=== PATIENT | female | born 1940 | race Caucasian/White ===

== ENCOUNTER 2017-03-24 15:33 | Observation (INO) | payer MEDICARE ==
[~2017-03-24] VITALS: Ht 162.6 cm; Wt 86.4 kg
[~2017-03-24 15:33] MED LIST: AMBIEN 5MG TAB5 MG PO; ASPIRIN 325MG325 MG PO; CEPHALEXIN500 MG PO; CLOPIDOGREL75 MG PO; CYCLOBENZAPRINE10 M1 PO; CYCLOBENZAPRINE10 MG PO; CYMBALTA60 MG PO; FUROSEMIDE40 MG PO; GABAPENTIN300 MG PO; INSULIN GL100 UNITS/ SC; K-DUR 2020 MEQ PO; LASIX20 MG PO; LASIX40 MG PO; LISINOPRIL 20MG20 MG PO; LISINOPRIL40 MG PO; LOMOTIL 2.5MG.2.5 MG PO; LOVAZA1 GM PO; MORPHINE SULFAT15 M3 PO; MORPHINE SULFAT30 M3 PO; NORCO 325 MG-51 TAB PO; Novolog100 U/ML SC; PLAVIX75 MG PO; PROTONIX 40MG T40 MG PO; SIMVASTATIN20 MG PO; VALIUM 10MG TAB10 MG PO; VICODIN 5/500 T1 TAB PO; VIT B PO; VIT D3 PO; VITAMIN D31000 IU PO
[2017-03-24 15:34] VITALS: BP 89/56
[2017-03-24 15:54] LABS: HEMOGLOBIN 10.7 g/dL (12.2-16.2); LYMPH # 3.2 K/mm3 (0.7-4.5); LYMPH % 14.4 % (10-50.0)
[2017-03-24 16:30] LABS: NEUTROPHILS 87 % (42-76)
--- NOTE | 2017-03-24 16:44 | Emergency Room Report ---
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 PT REPORTS CHRONIC BACK PAIN BUT STATES PAIN IS DIFFERENT THAN NORMAL. 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 N Clinical Suspician of Infection? N Mental Status: 1 - Regular (Normal Baseline) Sepsis Risk:Possible Sepsis Risk Have you (or family members/close friends) recently traveled outside the [place]? N If Yes, where/when: Have you had exposure to infectious disease within the past month? N TB? Other? Specify: 76 years old white female who presented with complicated past medical history for the past 5 days. Chief complaint is worsening of her lower back pain. She started developing vomiting for the past 5 days. 4-5 times a day. no diarrhea, no hematemesis no coffee-ground emesis no bleeding per rectum no melanotic stool. History she is a smoker who continues to smoke and she is experiencing productive cough of yellow/brown sputum. She denies respiratory distress. Source patient, RN notes reviewed, family Exam Limitations clinical condition (unable to lay flat because of ) ALLERGIES Coded Allergies: venom-honey bee (bee venom (honey bee)) (Severe, S-DIFF. BREATHING 10/18/15) ASPARTAME (FOOD) (From ASPARTAME (FOOD/DRUG)) (Intermediate, I-HIVES 10/18/15) aspartame (From ASPARTAME (FOOD/DRUG)) (Intermediate, I-HIVES 10/18/15) adhesive tape (10/18/15) Home Medications Reported Medications Simvastatin 1 TAB PO DAILY Pantoprazole Sodium (Protonix 40MG TAB) 1 TAB PO DAILY ASPIRIN (Aspirin 325MG) 1 TAB PO DAILY Diazepam (Valium 10MG) 10 MG PO TIDP Gabapentin (Gabapentin 300MG) 300 MG PO TID HYDROCODONE/ACETAMINOPHEN ([place] 5-325 Tablet) 1 TAB PO Q4-6HP PRN PAIN INSULIN GLARGINE (Lantus 3ML Solostar Pen) 15 UNITS SC DAILY INSULIN ASPART (Novolog) 15 UNITS SC AC Zolpidem Tartrate (Ambien 5MG) 5 MG PO QHS DULOXETINE HCL (Cymbalta 60MG) 60 MG PO QHS Lisinopril (Lisinopril 40MG) 40 MG PO DAILY Furosemide (Furosemide 40MG) 40 MG PO DAILY CLOPIDOGREL BISULFATE (Clopidogrel 75MG) 75 MG PO DAILY History Medical History General CAD? No Angina: Yes [place]: No Hypertension? Yes Hyperlipidemia? Yes CHF? No DVT? No PE? No COPD? No Asthma? No Anemia? No GERD? No Gastric ulcers? No GI Bleed? No Hernia? No Thyroid Problems? No Hypothyroidism? No CVA? Yes Seizures? 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 Yes Renal Insuffiency? No End Stage Renal Disease? No UTI? No Stones? No BPH? No GB Disease: No Nephritic Syndrome? No Asplenia? No Hepatitis? No Sickle Cell Disease? No Arthritis? Yes Migraines? Yes Cataracts? No Glaucoma? No MRSA? No HIV? No TB? No Anxiety? Yes Depression? Yes Cancer? Yes Site: COLON CANCER More? Yes Additional hx: Diabetic neuropathy BELLS PALSY Immunization Hx DT/Tetanus UNKNOWN Flu 2014-FSN Pneumonia Received In Past Surgical Hx Previous Surgery?Y L KNEE BACK SURGERY Colon Procedures HYSTERECTOMY Family History Family Hx Diabetes Yes CAD No Hypertension Yes Hyperlipidemia Yes Cancer Yes TB No Social History Smoking Hx Smoker: Current Every Day Smoker Tobacco: Yes Type Cigarettes Packs/day < 1 Pack Alcohol Alcohol: No Review of Systems All Other Systems Reviewed and Negative Constitutional no symptoms reported Eyes no symptoms reported ENT no symptoms reported. Respiratory see HPI, cough Cardiovascular no symptoms reported Gastrointestinal see HPI, vomiting Genitourinary no symptoms reported. Musculoskeletal back pain Skin no symptoms reported Psychiatric/Neurological no symptoms reported Physical Exam Vital Signs Vital Signs Date Time Temp Pulse Resp B/P Pulse O2 O2 Flow FiO2 Ox Delivery Rate 03/24 1900 80 20 145/66 100 03/24 1823 90 20 116/62 97 03/24 1712 96 20 115/62 98 03/24 1647 22 03/24 1622 80 22 101/47 95 09/25 1534 98.5 93 22 89/56 96 Uncooperative for exam because of her lower back. She was unable to lay flat. There was no acute findings and essentially examination. (Elicia CLARKE,[facility]) - WBC >12,000 or <4,000 or 10% bands? 2 or more SIRS Criteria Met? B/P:101/47 MAP:67 Creatinine >2.0? UA output<0.5ml/kg/hr for 2 hrs? Platelet count >100,000? Lactate >2.0mmol/1? INR >1.2 or PTT > than 60 sec? Evidence of Organ Dysfunction? Provider documented clinical suspician of infection? N Sepsis Criteria Count: 2 Sepsis Risk: Possible Sepsis Risk General Appearance normal appearance, WD/WN Eye Exam - bilateral eye normal exam, bilateral eye PERRL, bilateral eye EOMI Ear, Nose, Throat hearing grossly normal, normal ENT inspection Neck normal inspection, non-tender, supple, full range of motion Respiratory Status Yes: trachea midline, chest symmetrical, non tender chest. No: respiratory distress. Lung Sounds bilateral: normal breath sounds, lungs clear. 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 No Results/Orders Laboratory Tests 03/24/17 1540: Sodium 135 L, Potassium 3.6, Chloride 93 L, Carbon Dioxide 26, BUN 38 H, Creatinine 2.6 H, Estimated Creat Clear 20 L, Estimated GFR (MDRD) 18 *L, Glucose 153 H, Calcium 9.1, Total Bilirubin 0.8, AST 15, ALT 15, Alkaline Phosphatase 92, Total Protein 7.6, Albumin 3.3 L, Globulin 4.3 H, Albumin/ Globulin Ratio 0.8 L, WBC 22.0 *H, RBC 3.75 L, Hgb 10.7 L, Hct 32.4 L, MCV 86.4, RDW 15.3, Plt Count 584 H, MPV 7.8, Gran % 79.5, Gran # 17.5 H, Total Counted 100, Lymphocytes % 14.4, Monocytes % 5.0, Eosinophils % 0.7, Basophils % 0.4, Neutrophils 87 H, Band Neutrophils 1, Lymphocytes (Manual) 9 L, Lymphocytes # 3.2, Monocytes (Manual) 3, Monocytes # 1.1 H, Eosinophils # 0.2, Basophils # 0.1, Platelet Estimate MOD INCREASE, PUBS MCHC 33.1, MCH 28.6 Current Medication Orders Sig/Brandy Start time Last Medication Dose Route Stop Time Status Admin Metronidazole 100 ML ONCE ONE 03/24 1915 AC IV 03/24 2014 Ceftriaxone Sodium 0 .STK-MED ONE 03/24 1653 DC IV Sodium Chloride 50 ML .STK-MED ONE 03/24 1653 DC IV Ondansetron HCl 0 .STK-MED ONE 03/24 1649 DC .ROUTE Morphine Sulfate 0 .STK-MED ONE 03/24 1646 DC .ROUTE Ceftriaxone Sodium 1 GM ONCE ONE 03/24 1645 DC 03/24 Sodium Chloride 50 ML IV 03/24 1714 1710 Morphine Sulfate 4 MG ONCE ONE 03/24 1645 DC 03/24 IV 03/24 1646 1647 Ondansetron HCl 4 MG ONCE ONE 03/24 1645 DC 03/24 IV 03/24 1646 1650 Sodium Chloride 10 ML PRN PRN 03/24 1600 AC IV 03/25 1546 Sodium Chloride 1,000 ML .Q1H1M 03/24 1600 DC 03/24 IV 03/24 1700 1553 Sodium Chloride 10 ML PRN PRN 03/24 1600 AC IV 03/25 1547 Sodium Chloride 1,000 ML .STK-MED ONE 03/24 1536 DC IV Orders Procedure Date/time Status DIET-NOTHING BY MOUTH 03/24 D Active DIARRHEA PANEL, PCR 03/24 1915 Active CHEST(2 VIEWS-NOT PORTABLE) 03/24 1640 Active CULTURE, BLOOD 03/24 1640 Active LACTIC ACID 03/[address] ABD/PELVIS REQ 03/24 1547 Complete IV SALINE LOCK 03/24 1547 Active URINALYSIS/COMPLETE 03/24 1547 Active CBC WITH AUTO DIFF 03/24 154 Complete CHEM 12 PROFILE 03/24 1547 Complete DIFFERENTIAL-WBC 03/24 1540 Complete Departure Departure Time of Disposition 1916 Disposition Still a Patient Clinical Impression Primary Impression: Acute renal failure Secondary Impressions: Chronic low back pain, Enteritis Condition STABLE Referrals Anand Alvarez MD (Family) Additional Instructions After reviewing the labs and CT scan report to Dr. Gracia was covering for Dr. ALVAREZ. He agreed to admit for IV fluid and antibiotics. THE PATIENT was admitted in stable condition. Discharge Counseling Counseled pt/family regarding diagnosis, test results, follow up needs ED Critical Care Critical Care No at 1920
--- NOTE | 2017-03-24 18:14 | RADIOLOGY REPORT PS360 ---
CT ABD PELVIS W/O CONTRAST HISTORY: NAUSEA, VOMITING, INCREASED BACK PAIN . Has history: Tumor removed roughly 2009. Patient Age: 76 years: Female Ordering Physician: Paloma Rubi MD TECHNIQUE: Helical CT scanning performed the abdomen and pelvis. Sagittal and coronal reconstruction CT workstation COMPARISON :CT abdomen pelvis 05/25/2015 FINDINGS : Abnormal enlarged lymph nodes are seen overlying the right lateral chest. & lateral margin right breast towards axilla. Palpation of the lateral right chest wall & axilla required to correlate. Largest node measuring up to 3.6 cm. With adjacent node 2 cm size.. Suspect right breast pathology vs lymphoma. These abnormal and warrant further investigation. .. Recommend CT chest with contrast to further evaluate. Also suggest Bilateral Mammography & right breast with axillary Ultrasound recommended as I see no prior mammograms at this facility Lung bases. No active disease within the lung bases otherwise evident. Elevation left hemidiaphragm Abdomen/pelvis. Lack of oral and IV contrast decreases sensitivity. Liver. No focal lesions. Spleen appears overall normal 115-mm height. . Gallbladder is nondistended with no calcified gallstones but would suspect sludge and nonopacified debris. Kidneys. No tract obstruction. Renal vascular calcifications medial right and left kidney. Diffuse calcification of lower abdominal aorta. No aneurysm. Partial colonic resection with anastomosis of large bowel at right abdomen, & and towards right lower quadrant.. Large air-fluid level here with this is somewhat distended loop of large bowel at. Site of anastomosis.. Also Liquid stool throughout the right colon. Features may reflect developing diarrhea,/ enteritis. Small bowel appears normal in caliber with upper normal wall thickness in some areas distally but no significant dilatation.. Scattered small air-fluid levels. No free fluid. No free ai at the abdomen or pelvis. Moderate solid stool distally at large bowel, with moderate stool throughout the colon. Osseous. No focal lesions. No metastatic disease. Levoscoliosis of L-spine. Prominent Degenerative changes throughout the spine similar to 2015. . IMPRESSION. 1. Abnormal enlarged lymph nodes incidentally noted overlying right chest wall on the initial images. Recommend follow-up CT chest preferably with contrast. Also bilateral mammogram and right breast ultrasound to further evaluate 2. Liquid stool is seen throughout the right colon . Particularly prominent air-fluid level is seen at the dilated area of large bowel anastomosis right abdomen/right lower quadrant. It may reflect developing enteritis/diarrhea 3. Moderately distended gallbladder.. No calcified stones but somewhat suspect of noncalcified stones a versus significant sludge & debris. Consider including gallbladder ultrasound when patient returns as well
[2017-03-24 20:20] VITALS: BP 126/67
--- NOTE | 2017-03-24 20:25 | RADIOLOGY REPORT PS360 ---
CHEST(2 VIEWS-NOT PORTABLE) HISTORY: cough and body cahes Patient Age: 76 years: Female Ordering Physician: Paloma Rubi MD TECHNIQUE: PA lateral chest in wheelchair COMPARISON :PA and lateral chest from April 01, 2013. Also AP chest September 2015 and rib series October 2015 FINDINGS Nothing definitely acute. Minor chronic change at the lungs s.. Lungs well expanded and clear . Heart rand and mediastinal structures appear satisfactory. No focal pneumonia evident. . Prominent arthritic changes are seen in both shoulder with narrowing subacromial space bilateral likely reflecting underlying rotator cuff tears.. Slight progression of degenerative disc narrowing and changes at mid T-spine since 2012. No compression fracture. Report IMPRESSION: No acute cardiopulmonary findings. Heart and & lungs appear stable since prior studies Slight progressive degenerative disc changes mid T-spine, since 2012 lateral chest
[2017-03-25 04:35] VITALS: BP 114/53
--- NOTE | 2017-03-25 07:08 | HISTORY AND PHYSICAL REPORT ---
Demographics: Admit date: 03/24/17 Chief complaint: Vomiting PRIMARY DIAGNOSIS: RENAL FAILURE Allergies: Coded Allergies: venom-honey bee (bee venom (honey bee)) (Severe, S-DIFF. BREATHING 03/24/17) ASPARTAME (FOOD) (From ASPARTAME (FOOD/DRUG)) (Intermediate, I-HIVES 03/24/17) aspartame (From ASPARTAME (FOOD/DRUG)) (Intermediate, I-HIVES 03/24/17) adhesive tape (03/24/17) History of present illness: History of present illness: 76-year-old female presented to the emergency department last night with 4 days of vomiting. Patient states vomiting would occur every time she attempted to eat or drink. She estimates the last 4 days the most she ever tried it one time was a cookie otherwise she just drink water. Workup in the emergency department revealed elevated white blood cell count, elevated BUN, elevated creatinine above baseline. Patient was admitted for IV fluids. Overnight patient has been able to drink a small glass of water without vomiting. Past medical history: Family HX Family Hx Insignificant No Diabetes Yes CAD No Hypertension Yes Hyperlipidemia Yes Cancer Yes TB No Immunization HX DT/Tetanus > 10 Years Ago Flu 2014-16FSN Pneumonia Received In Past TB Test in last year No General CAD? No Angina: Yes [place]: No Hypertension? Yes Hyperlipidemia? Yes CHF? No DVT? No PE? No COPD? No Asthma? No Anemia? No GERD? No Gastric ulcers? No GI Bleed? No Hernia? No Thyroid Problems? No Hypothyroidism? No CVA? Yes Seizures? 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 Yes Renal Insuffiency? No UTI? No Stones? No BPH? No GB Disease: No Nephritic Syndrome? No Asplenia? No Hepatitis? No Sickle Cell Disease? No Arthritis? Yes Migraines? Yes Cataracts? No Glaucoma? No MRSA? No HIV? No TB? No Anxiety? Yes Depression? Yes Cancer? Yes Site: COLON CANCER More? Yes Additional hx: Diabetic neuropathy BELLS PALSY Past Surgical HX Previous Surgery?Y L KNEE BACK SURGERY Colon Procedures HYSTERECTOMY Current home meds: Reported Medications Simvastatin 1 TAB PO DAILY Pantoprazole Sodium (Protonix 40MG TAB) 1 TAB PO DAILY ASPIRIN (Aspirin 325MG) 1 TAB PO DAILY Diazepam (Valium 10MG) 10 MG PO TIDP Gabapentin (Gabapentin 300MG) 300 MG PO TID HYDROCODONE/ACETAMINOPHEN ([place] 5-325 Tablet) 1 TAB PO Q4-6HP PRN PAIN INSULIN GLARGINE (Lantus 3ML Solostar Pen) 15 UNITS SC DAILY INSULIN ASPART (Novolog) 15 UNITS SC AC Zolpidem Tartrate (Ambien 5MG) 5 MG PO QHS DULOXETINE HCL (Cymbalta 60MG) 60 MG PO QHS Lisinopril (Lisinopril 40MG) 40 MG PO DAILY Furosemide (Furosemide 40MG) 40 MG PO DAILY CLOPIDOGREL BISULFATE (Clopidogrel 75MG) 75 MG PO DAILY Social Hx: Smoking HX Tobacco Yes Type Cigarettes Packs/day < 1 PACK Are you/the child exposed to second-hand smoke: No Alcohol Alcohol: No Hx of Drug Use Drug Use? No Patien't marital status is Patient's support system is good Review of systems: Constitutional No: chills, diaphoresis, malaise. Respiratory no symptoms reported. Cardiovascular no symptoms reported Gastrointestinal/Abdominal see HPI Genitourinary no symptoms reported. Musculoskeletal no symptoms reported. Neurological Yes: no symptoms reported. Exam: Lab data for last 24 hours: Laboratory Tests 03/25/17 0618: Sodium 135 L, Potassium 3.6, Chloride 96 L, Carbon Dioxide 27, BUN 39 H, Creatinine 2.3 H, Estimated Creat Clear 28 L, Estimated GFR (MDRD) 21 L, Glucose 85, Calcium 8.6, Total Bilirubin 1.0, AST 20, ALT 15, Alkaline Phosphatase 84, Total Protein 7.2, Albumin 2.9 L, Globulin 4.3 H, Albumin/ Globulin Ratio 0.7 L 03/24/17 1540: Sodium 135 L, Potassium 3.6, Chloride 93 L, Carbon Dioxide 26, BUN 38 H, Creatinine 2.6 H, Estimated Creat Clear 20 L, Estimated GFR (MDRD) 18 *L, Glucose 153 H, Calcium 9.1, Total Bilirubin 0.8, AST 15, ALT 15, Alkaline Phosphatase 92, Total Protein 7.6, Albumin 3.3 L, Globulin 4.3 H, Albumin/ Globulin Ratio 0.8 L, WBC 22.0 *H, RBC 3.75 L, Hgb 10.7 L, Hct 32.4 L, MCV 86.4, RDW 15.3, Plt Count 584 H, MPV 7.8, Gran % 79.5, Gran # 17.5 H, Total Counted 100, Lymphocytes % 14.4, Monocytes % 5.0, Eosinophils % 0.7, Basophils % 0.4, Neutrophils 87 H, Band Neutrophils 1, Lymphocytes (Manual) 9 L, Lymphocytes # 3.2, Monocytes (Manual) 3, Monocytes # 1.1 H, Eosinophils # 0.2, Basophils # 0.1, Platelet Estimate MOD INCREASE, PUBS MCHC 33.1, MCH 28.6 Microbiology 03/25 618 BLOOD: Anaerobic Blood Culture - RECD 03/25 618 BLOOD: Aerobic Blood Culture - RECD 03/25 618 BLOOD: Anaerobic Blood Culture - RECD 03/25 618 BLOOD: Aerobic Blood Culture - RECD Admission vital signs: 1ST Vital Signs Result Date Time Pulse Ox 96 03/24 1534 B/P 89/56 03/24 1534 Temp 98.5 03/24 1534 Pulse 93 03/24 1534 Resp 22 03/24 1534 O2 Delivery ROOM AIR 03/24 2020 Exam General appearance: normal appearance, alert, awake Eyes: normal exam, anicteric ENT: normal exam, mucous membranes moist Neck: normal inspection, non-tender, no carotid bruit, no JVD Cardiovascular: normal exam Respiratory: normal exam, clear to auscultation Plan: Problem List 1. Enteritis 2. Vomiting Plan: Patient was able to tolerate small amount of liquids overnight. Continue liquid diet and reassess this afternoon. Should she have further vomiting will proceed with ultrasound of RIGHT upper quadrant to rule out gallstones as on her CT scan and her gallbladder was distended and there was question of stones. at [id number]
[2017-03-25 07:12] LABS: HEMOGLOBIN 9.1 g/dL (12.2-16.2)
[2017-03-25 07:13] LABS: LYMPH # 1.6 K/mm3 (0.7-4.5); LYMPH % 9.9 % (10-50.0)
--- NOTE | 2017-03-25 07:22 | PHARMACY CLINIC NOTE ---
Patient Demographics Patient Demographics Admission date: 03/24/17 Date: 03/25/17 Time: 720 Allergies Coded Allergies: venom-honey bee (bee venom (honey bee)) (Severe, S-DIFF. BREATHING 03/24/17) ASPARTAME (FOOD) (From ASPARTAME (FOOD/DRUG)) (Intermediate, I-HIVES 03/24/17) aspartame (From ASPARTAME (FOOD/DRUG)) (Intermediate, I-HIVES 03/24/17) adhesive tape (03/24/17) HEIGHT- FT: 5 IN: 4.00 K.410 VTE General Information Labs: Laboratory Tests 03/25 03/24 0618 1540 Hematology Hgb (12.2 - 16.2 g/dL) 9.1 L 10.7 L Hct (37.0 - 47.0 %) 28.3 L 32.4 L Plt Count (142 - 424 K/mm3) 400 584 H Disclaimer The following section includes nursing documentation that has been pulled in for pharmacy review. Patient's VTE score: 3 Patient's VTE Risk: LOW RISK Clinical trial participant? No VTE prophylaxis [id number] VTE prophylaxis ordered? Yes Type of prophylaxis/treatment: GATITO at 0721
[2017-03-25 08:25] VITALS: BP 105/58
--- NOTE | 2017-03-27 17:22 | Discharge Summary ---
Demographics Admit date: 03/24/17 Discharge date: 03/25/17 Discharge diagnoses Problem List 1. Enteritis 2. Vomiting 3. Acute kidney injury History of present illness History of present illness 76-year-old female presented to the emergency department last night with 4 days of vomiting. Patient states vomiting would occur every time she attempted to eat or drink. She estimates the last 4 days the most she ever tried it one time was a cookie otherwise she just drink water. Workup in the emergency department revealed elevated white blood cell count, elevated BUN, elevated creatinine above baseline. Patient was admitted for IV fluids. Overnight patient has been able to drink a small glass of water without vomiting. Patient was admitted with intention of continuing IV fluid resuscitation as well as monitoring of her renal function due to acute kidney injury from her dehydration. Patient was able tolerate liquids almost immediately after admission. As the day the progressed patient refused care and requested her IV be removed and she be allowed to leave. This which was granted. Medications Medications: Discharge meds are as noted. Follow up Follow up in office in: as needed with: Anand Lee MD at [id number]
[2017-03-31] MEDS ORDERED: Oxycodone5 MG NG (11:33)
== END 2017-03-25 11:48 | disposition home or self-care (01) ==
LOC: ER 15:33 → 2ND 19:22
PROVIDERS: Emergency Medicine; Family Medicine
DX: N17.9 Acute kidney failure, unspecified (principal); E86.0 Dehydration; K52.9 Noninfective gastroenteritis and colitis, unspecified; I10 Essential (primary) hypertension; E78.5 Hyperlipidemia, unspecified; E11.40 Type 2 diabetes mellitus with diabetic neuropathy, unspecified; Z79.02 Long term (current) use of antithrombotics/antiplatelets; Z79.82 Long term (current) use of aspirin; Z79.4 Long term (current) use of insulin; Z79.891 Long term (current) use of opiate analgesic; Z79.899 Other long term (current) drug therapy; F17.210 Nicotine dependence, cigarettes, uncomplicated; Z86.73 Personal history of transient ischemic attack (TIA), and cerebral infarction without residual deficits; Z85.038 Personal history of other malignant neoplasm of large intestine
CPT/HCPCS: G0378; J2405; Q2038

== ENCOUNTER 2017-03-28 12:02 | Emergency (ER) | payer MEDICARE ==
[~2017-03-28] VITALS: Ht 162.6 cm; Wt 84.8 kg
--- NOTE | 2017-03-28 13:01 | Emergency Room Report ---
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 N Clinical Suspician of Infection? N Mental Status: 1 - Regular (Normal Baseline) Sepsis Risk:Possible Sepsis Risk Have you (or family members/close friends) recently traveled outside the [place]? N If Yes, where/when: Have you had exposure to infectious disease within the past month? TB? Other? Specify: Patient complains of back pain RIGHT upper quadrant RIGHT side and pain all over her body ongoing for the past several days with nausea and vomiting was seen in here had a CAT scan recently where they noted some gallbladder distention states she also had a urinary tract infection was discharged home she is back today with failure to thrive as feverishness malaise and fatigue and continued whole- body pain and continued moderate achy RIGHT upper quadrant abdominal pain it radiates around to the back. ALLERGIES Coded Allergies: venom-honey bee (bee venom (honey bee)) (Severe, S-DIFF. BREATHING 03/28/17) ASPARTAME (FOOD) (From ASPARTAME (FOOD/DRUG)) (Intermediate, I-HIVES 03/28/17) aspartame (From ASPARTAME (FOOD/DRUG)) (Intermediate, I-HIVES 03/28/17) adhesive tape (03/28/17) Home Medications Reported Medications Simvastatin 1 TAB PO DAILY Pantoprazole Sodium (Protonix 40MG TAB) 1 TAB PO DAILY ASPIRIN (Aspirin 325MG) 1 TAB PO DAILY Diazepam (Valium 10MG) 10 MG PO TIDP Gabapentin (Gabapentin 300MG) 300 MG PO TID HYDROCODONE/ACETAMINOPHEN ([place] 5-325 Tablet) 1 TAB PO Q4-6HP PRN PAIN INSULIN GLARGINE (Lantus 3ML Solostar Pen) 15 UNITS SC DAILY INSULIN ASPART (Novolog) 15 UNITS SC AC Zolpidem Tartrate (Ambien 5MG) 5 MG PO QHS DULOXETINE HCL (Cymbalta 60MG) 60 MG PO QHS Lisinopril (Lisinopril 40MG) 40 MG PO DAILY CLOPIDOGREL BISULFATE (Clopidogrel 75MG) 75 MG PO DAILY Discontinued Reported Medications Furosemide (Furosemide 40MG) 40 MG PO DAILY History Medical History General CAD? No Angina: Yes [place]: No Hypertension? Yes Hyperlipidemia? Yes CHF? No DVT? No PE? No COPD? No Asthma? No Anemia? No GERD? No Gastric ulcers? No GI Bleed? No Hernia? No Thyroid Problems? No Hypothyroidism? No CVA? Yes Seizures? 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 Yes Renal Insuffiency? No End Stage Renal Disease? No UTI? No Stones? No BPH? No GB Disease: No Nephritic Syndrome? No Asplenia? No Hepatitis? No Sickle Cell Disease? No Arthritis? Yes Migraines? Yes Cataracts? No Glaucoma? No MRSA? No HIV? No TB? No Anxiety? Yes Depression? Yes Cancer? Yes Site: COLON CANCER More? Yes Additional hx: Diabetic neuropathy BELLS PALSY Immunization Hx Ped.Immunizations UTD Yes DT/Tetanus > 10 Years Ago Flu 03/25/17 Pneumonia 03/25/17 Surgical Hx Previous Surgery?Y L KNEE BACK SURGERY Colon Procedures HYSTERECTOMY Family History Family Hx Diabetes Yes CAD No Hypertension Yes Hyperlipidemia Yes Cancer Yes TB No Social History Smoking Hx Smoker: Current Every Day Smoker Tobacco: Yes Type Cigarettes Packs/day < 1 Pack Alcohol Alcohol: No Review of Systems All Other Systems Reviewed and Negative Physical Exam Vital Signs Vital Signs Date Time Temp Pulse Resp B/P Pulse O2 O2 Flow FiO2 Ox Delivery Rate 03/28 1442 98.1 96 18 116/71 93 03/28 1441 20 03/28 1209 999.0 96 18 116/48 98 General Appearance: Nontoxic Head: Normocephalic, without obvious abnormality, atraumatic. Eyes: conjunctiva/corneas clear ENT: Mucous membranes moist. Neck: No jugular venous distention. Cardiac: regular rate and rhythm Lungs: Clear to auscultation bilaterally Abdomen: RIGHT upper quadrant tenderness, Nondistended, positive bowel sounds, no rebound : No CVA tenderness Extremities: no edema Musculoskeletal: No chest wall tenderness Skin: No rashes or lesions to exposed skin. Neurologic: Alert. No gross focal deficits Psychiatric: Normal affect (Tio CLARKE, Jesus) General Appearance normal appearance Respiratory Status No: respiratory distress. Cardiovascular normal exam Neurologic alert Medical Decision Making LABS/Meds/Orders Pt receiving controlled substance in ED? No Comment 427 pt refused US and CXR once, dw patient, agreed to US, staff states pt was taken up for US, and refused again 434 dw patient, she states she is still waiting to be taken upstairs for US, I discussed with US staff. 616 no cholecystitis. dw patient she desires home, she will call Jesus in the morning. return to ER if worse Results/Orders Laboratory Tests 03/28/17 1409: Lactic Acid 1.7 03/28/17 1409: Sodium 132 L, Potassium 3.7, Chloride 96 L, Carbon Dioxide 26, BUN 32 H, Creatinine 1.4 H, Estimated Creat Clear 46 L, Estimated GFR (MDRD) 37 L, Glucose 159 H, Calcium 9.5, Total Bilirubin 0.6, AST 28, ALT 36, Alkaline Phosphatase 111, Troponin I < 0.02, Total Protein 7.9, Albumin 3.0 L, Globulin 4.9 H, Albumin/Globulin Ratio 0.6 L, Lipase 51 L, WBC 17.3 H, RBC 3.76 L, Hgb 10.3 L, Hct 32.7 L, MCV 87.1, RDW 15.3, Plt Count 590 H, MPV 8.0, Gran % 75.7, Gran # 13.1 H, Total Counted 100, Lymphocytes % 17.3, Monocytes % 5.2, Eosinophils % 1.5, Basophils % 0.4, Neutrophils 79 H, Band Neutrophils 3, Lymphocytes (Manual) 12, Lymphocytes # 3.0, Monocytes (Manual) 5, Monocytes # 0.9, Eosinophils # 0.3, Eosinophils # (Manual) 1, Basophils # 0.1, Platelet Estimate MOD INCREASE, PUBS MCHC 31.5 L, MCH 27.5 Current Medication Orders Sig/Brandy Start time Last Medication Dose Route Stop Time Status Admin Ondansetron HCl 0 .STK-MED ONE 03/28 1507 DC .ROUTE Ondansetron HCl 4 MG ONCE ONE 03/28 1500 DC 03/28 IV 03/28 1501 1507 Hydromorphone HCl 1 MG ONCE ONE 03/28 1445 DC 03/28 IV 03/28 1446 1441 Ondansetron HCl 4 MG 03/28 1445 CAN IV Hydromorphone HCl 0 .STK-MED ONE 03/28 1435 DC .ROUTE Sodium Chloride 1,000 ML .STK-MED ONE 03/28 1429 DC IV Sodium Chloride 1,000 ML .Q1H1M 03/28 1300 DC 03/28 IV 03/28 1400 1433 Sodium Chloride 10 ML PRN PRN 03/28 1300 AC IV 03/29 1258 Orders Procedure Date/time Status GEN NSG/PT REQ (NOT FOR MEDS!) 03/28 1635 Active DIFFERENTIAL-WBC 03/28 1409 Complete 12 LEAD EKG-BESSON (INITIAL) 03/28 1259 Active ELECTROCARDIOGRAM REQUEST 03/28 1259 Active US GALLBLADDER (ABD LTD) 03/28 1259 Active CULTURE, BLOOD 03/28 1259 Active TROPONIN I 03/28 1259 Complete LIPASE 03/28 1259 Complete LACTIC ACID 03/28 1259 Complete INFLUENZA A&B ANTIGENS 03/28 1259 Active CBC WITH AUTO DIFF 03/28 1259 Complete CHEM 12 PROFILE 03/28 1259 Complete Departure Departure Time of Disposition 181 Disposition DC Home or Self Care(routine) Clinical Impression Primary Impression: Biliary colic Condition STABLE Referrals Landy CLARKE,Anand Massey MD (Family) Patient Instructions DI for Abdominal Pain-Adult Additional Instructions call Jesus moore for recheck. return if worse. Discharge Counseling Counseled pt/family regarding diagnosis, test results, medications/RX, home care, follow up needs Prescriptions Current Visit Scripts Ondansetron (Zofran 4MG Odt) 4 MG PO Q6HP PRN NAUSEA AND VOMITING #10 TAB ED Critical Care Critical Care No at [id number]
[2017-03-28 14:19] LABS: HEMOGLOBIN 10.3 g/dL (12.2-16.2); LYMPH % 17.3 % (10-50.0)
[2017-03-28 14:31] LABS: BUN 32 mg/dL (7-18); GFR (ESTIMATED) 37 ML/MIN (59-)
[2017-03-28 15:06] LABS: NEUTROPHILS 79 % (42-76)
--- NOTE | 2017-03-28 18:03 | RADIOLOGY REPORT PS360 ---
CHEST(2 VIEWS-NOT PORTABLE) HISTORY: PAIN ORDERING PHYSICIAN: Jesus Kinsey MD PATIENT AGE: 76 years COMPARISON: 03/24/2017 FINDINGS: Unremarkable cardiovascular structures. No lobar consolidation or collapse evident. There is evidence of old granulomatous disease. Nodularity is present in the left perihilar region measuring 10 mm and could be due to summation artifact versus developing pulmonary nodule. No acute bony anomalies. Degenerative change thoracic spine. IMPRESSION: 1. No acute finding. 2. Nonspecific left perihilar nodular opacity which may be better evaluated with outpatient CT if clinically desired
[2017-03-28] MEDS ORDERED: ZOFRAN ODT4 MG PO (18:15)
[2017-03-28 18:37] VITALS: BP 125/75
--- NOTE | 2017-03-28 22:38 | RADIOLOGY REPORT PS360 ---
US GALLBLADDER (ABD LTD) HISTORY: RUQ PAIN ORDERING PHYSICIAN: Jesus Kinsey MD PATIENT AGE: 76 years COMPARISON: None FINDINGS: Study is very limited as the patient could not lie down for the exam. The exam was performed with the patient sitting up in her chair. Pancreas is not well demonstrated. The liver is also not well demonstrated. The right kidney is not cannot exclude possibility of small stones or sludge. No obvious pericholecystic fluid. Gallbladder wall may be slightly thickened. This however is difficult to delineate. IMPRESSION: Very limited exam. No large gallstones evident. Recommend repeat study when patient can lie down for the exam.
[2017-03-31] MEDS ORDERED: Oxycodone5 MG NG (11:33)
== END 2017-03-28 18:38 | disposition home or self-care (01) ==
LOC: ER 12:02
PROVIDERS: Emergency Medicine
DX: K80.50 Calculus of bile duct without cholangitis or cholecystitis without obstruction (principal); E11.9 Type 2 diabetes mellitus without complications; Z79.4 Long term (current) use of insulin; Z79.82 Long term (current) use of aspirin; I10 Essential (primary) hypertension; F41.8 Other specified anxiety disorders; F17.210 Nicotine dependence, cigarettes, uncomplicated; Z91.030 Bee allergy status
CPT/HCPCS: J2405

== ENCOUNTER 2017-03-31 10:02 | Emergency (ER) | payer MEDICARE ==
[~2017-03-31] VITALS: Ht 162.6 cm; Wt 79.4 kg
--- NOTE | 2017-03-31 10:11 | Emergency Room Report ---
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 PT REPORTS WAS TOLD HER GALLBLADDER HAS SLUDGE AND GALLSTONES. 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 N Clinical Suspician of Infection? N Mental Status: 1 - Regular (Normal Baseline) Sepsis Risk:Possible Sepsis Risk Have you (or family members/close friends) recently traveled outside the [place]? N If Yes, where/when: Have you had exposure to infectious disease within the past month? N TB? Other? Specify: Source patient, RN notes reviewed Exam Limitations no limitations Comment PT COMES to the ED with history of RUQ pain that goes across the back and has had a CT scan and an US that showed GB sludge but not definitely gallstones. This is her 3rd visit to the ED in the past 2 weeks for this pain. She is afebrile and her BP=90/53. She is a Diabetic and a smoker but says she has not been able to smoke in the past couple of weeks because of this pain Cardiac Chest Pain Chest pain indicative of cardiac No ALLERGIES Coded Allergies: venom-honey bee (bee venom (honey bee)) (Severe, S-DIFF. BREATHING 03/28/17) ASPARTAME (FOOD) (From ASPARTAME (FOOD/DRUG)) (Intermediate, I-HIVES 03/28/17) aspartame (From ASPARTAME (FOOD/DRUG)) (Intermediate, I-HIVES 03/28/17) adhesive tape (03/28/17) Home Medications Active Scripts Ondansetron (Zofran 4MG Odt) 4 MG PO Q6HP PRN NAUSEA AND VOMITING #10 TAB Prov: 03/28/17 Reported Medications Simvastatin 1 TAB PO DAILY Pantoprazole Sodium (Protonix 40MG TAB) 1 TAB PO DAILY ASPIRIN (Aspirin 325MG) 1 TAB PO DAILY Diazepam (Valium 10MG) 10 MG PO TIDP Gabapentin (Gabapentin 300MG) 300 MG PO TID HYDROCODONE/ACETAMINOPHEN ([place] 5-325 Tablet) 1 TAB PO Q4-6HP PRN PAIN INSULIN GLARGINE (Lantus 3ML Solostar Pen) 15 UNITS SC DAILY INSULIN ASPART (Novolog) 15 UNITS SC AC Zolpidem Tartrate (Ambien 5MG) 5 MG PO QHS DULOXETINE HCL (Cymbalta 60MG) 60 MG PO QHS Lisinopril (Lisinopril 40MG) 40 MG PO DAILY CLOPIDOGREL BISULFATE (Clopidogrel 75MG) 75 MG PO DAILY Discontinued Reported Medications Furosemide (Furosemide 40MG) 40 MG PO DAILY History Medical History General CAD? No Angina: Yes [place]: No Hypertension? Yes Hyperlipidemia? Yes CHF? No DVT? No PE? No COPD? No Asthma? No Anemia? No GERD? No Gastric ulcers? No GI Bleed? No Hernia? No Thyroid Problems? No Hypothyroidism? No CVA? Yes Seizures? 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 Yes Renal Insuffiency? No End Stage Renal Disease? No UTI? No Stones? No BPH? No GB Disease: No Nephritic Syndrome? No Asplenia? No Hepatitis? No Sickle Cell Disease? No Arthritis? Yes Migraines? Yes Cataracts? No Glaucoma? No MRSA? No HIV? No TB? No Anxiety? Yes Depression? Yes Cancer? Yes Site: COLON CANCER More? Yes Additional hx: Diabetic neuropathy BELLS PALSY Immunization Hx DT/Tetanus > 10 Years Ago Flu 03/25/17 Pneumonia 03/25/17 Surgical Hx Previous Surgery?Y L KNEE BACK SURGERY Colon Procedures HYSTERECTOMY Family History Family Hx Diabetes Yes CAD No Hypertension Yes Hyperlipidemia Yes Cancer Yes TB No Social History Smoking Hx Smoker: Current Every Day Smoker Tobacco: Yes Type Cigarettes Packs/day < 1 Pack Alcohol Alcohol: No Review of Systems All Other Systems Reviewed and Negative Constitutional see HPI Respiratory see HPI Cardiovascular see HPI Gastrointestinal see HPI Physical Exam Vital Signs Vital Signs Date Time Temp Pulse Resp B/P Pulse O2 O2 Flow FiO2 Ox Delivery Rate 03/31 1113 101 20 115/84 99 03/31 1042 95 20 112/52 99 03/31 1036 20 03/31 1003 98.4 108 22 90/53 99 General Appearance moderate distress Respiratory Status No: respiratory distress. 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 Yes Mack was queried for this patient? Yes Reference #: [id number] Results/Orders Laboratory Tests 03/31/17 1022: Sodium 137, Potassium 4.0, Chloride 96 L, Carbon Dioxide 26, BUN 20 H, Creatinine 1.4 H, Estimated Creat Clear 43 L, Estimated GFR (MDRD) 37 L, Glucose 216 H, Calcium 9.6, Total Bilirubin 0.5, AST 22, ALT 28, Alkaline Phosphatase 93, Total Protein 7.3, Albumin 2.6 L, Globulin 4.7 H, Albumin/ Globulin Ratio 0.6 L, Amylase 16 L, Lipase 56 L, WBC 17.0 H, RBC 3.88 L, Hgb 9.8 L, Hct 33.8 L, MCV 86.9, RDW 15.0, Plt Count 665 H, MPV 7.6, Gran % 80.7 H, Gran # 13.7 H, Total Counted 100, Lymphocytes % 13.7, Monocytes % 3.7, Eosinophils % 1.5, Basophils % 0.3, Neutrophils 71, Lymphocytes (Manual) 21, Lymphocytes # 2.3, Monocytes (Manual) 7, Monocytes # 0.6, Eosinophils # 0.3, Eosinophils # (Manual) 1, Basophils # 0.1, Platelet Estimate MOD INCREASE, PUBS MCHC 29.1 L, MCH 25.3 L Current Medication Orders Sig/Brandy Start time Last Medication Dose Route Stop Time Status Admin Hydromorphone HCl 1 MG ONCE ONE 03/31 1130 DC IV 03/31 1131 Hydromorphone HCl 0 .STK-MED ONE 03/31 1035 DC .ROUTE Ondansetron HCl 0 .STK-MED ONE 03/31 1035 DC .ROUTE Sodium Chloride 1,000 ML .STK-MED ONE 03/31 1035 DC IV Hydromorphone HCl 0.5 MG ONCE ONE 03/31 1030 DC 03/31 IV 03/31 1031 1036 Ondansetron HCl 4 MG ONCE ONE 10/02 1030 DC 10 IV 03/31 1031 1036 Sodium Chloride 10 ML PRN PRN 03/31 1030 AC IV 04/01 1023 Sodium Chloride 1,000 ML .Q4H 03/31 1030 AC IV 03/31 1429 Sodium Chloride 10 ML PRN PRN 03/31 1030 AC IV 04/01 1023 Sodium Chloride 1,000 ML .Q1H1M 03/31 1030 DC 03/31 IV 03/31 1130 1036 Sodium Chloride 10 ML PRN PRN 03/31 1030 AC IV 04/01 1023 Orders Procedure Date/time Status IV SALINE LOCK 03/31 1024 Active URINALYSIS/COMPLETE 03/31 1024 Active LIPASE 03/31 1024 Complete CBC WITH AUTO DIFF 03/31 1024 Complete CHEM 12 PROFILE 03/31 1024 Complete AMYLASE 03/31 1024 Complete DIFFERENTIAL-WBC 03/31 1022 Complete Departure Departure Time of Disposition 1130 Disposition DC Home or Self Care(routine) Clinical Impression Primary Impression: Axillary lymphadenopathy Secondary Impressions: Hypoalbuminemia due to protein-calorie malnutrition Condition STABLE Referrals Anand Lee MD (Family): Tomorrow-Call Office Patient Instructions DI for Lymphadenopathy Additional Instructions Drink as many fluids as possible and followup with Dr. Lee in his office tomorrow at 1:30 PM to arrange for further testing Discharge Counseling Counseled pt/family regarding diagnosis, test results, medications/RX, home care, follow up needs Prescriptions Current Visit Scripts OXYCODONE HCL (Oxycodone) 5 MG NG Q6H #18 TAB ED Critical Care Critical Care No If Critical Care minutes are documented, the time involved in the performance of seperately reportable procedures was not counted toward critical care time documented. I directly delivered medical care to this critically ill and/or injured patient. Timely evaluation and treatment was necessary to address the significant organ system(s) dysfunction present in this patient. at 1133
[2017-03-31 10:31] LABS: HEMOGLOBIN 9.8 g/dL (12.2-16.2); LYMPH # 2.3 K/mm3 (0.7-4.5); LYMPH % 13.7 % (10-50.0)
[2017-03-31 10:59] LABS: NEUTROPHILS 71 % (42-76)
[2017-03-31 11:50] VITALS: BP 90/54
--- OUTSIDE RECORDS SUMMARY | 2017-04-10 02:53 | External Medical Summary Rpt | CCD ---
Demographics Home Phone Preferred Language Finnish Marital Status Unknown Muslim Affiliation Unknown Race Unknown Ethnic Group Unknown Author Author , MARIA L LISA Address Unknown Phone [email or web address] Care Team Providers Care Mess Cook Name Role Phone DORINDA GANN MD, Unavailable Unavailable DORINDA GANN MD Purpose Continuity of Care Document - 02-12-2013 through 2016 Problems Code Diagnosis DOS Provider Status 250.01 250.01 DIAB 04-01-2013 [facility], TYPE Hospital I [JUVENILE TYPE], NOT UNCNTRLD 305.1 305.1 04-01-2013 [place] TOBACCO USE [facility] 401.9 401.9 04-01-2013 [place] HYPERTENSIO [facility] NOS Hospital 428.0 428.0 04-01-2013 [place] CONGESTIVE [facility] FAILURE NOS 782.3 782.3 EDEMA 04-01-2013 [facility] Allergies, Adverse Reactions, Alerts Type Allergy to substance Drug Allergy Adverse Reaction to Substance Substance Reaction Severity ARTIFICIAL SWEETNER I-HIVES Unknown BEE STING Unknown Unknown TAPE I-HIVES Unknown Medications Na ND Rx Da Fi Fi Am Da Di Ph RX Ph St me C No te ll ll ou ys ag ar # ys at rm s nt no ma ic us Or Da si cy ia de te s n re d TR 65 12 0 No AM 16 -0 AD 20 1- Lo OL 62 20 ng 71 13 er HC 0 L Ac 50 ti ve MG TA BL ET TR 00 12 0 No AM 09 -0 AD 30 1- Lo OL 05 20 ng 80 13 er 50 1H MG Ac ti TA ve BL ET TA KE HO ME Sa 63 10 0 No li 80 -0 ne 70 3- Lo 10 20 ng Fl 07 13 er us 5 h Ac 10 ti ML ve Sy ri ng e FU 00 10 0 No RO 40 -0 SE 96 3- Lo NE 10 20 ng DE 20 13 er 4 40 Ac ti MG ve /4 ML AL Sa 63 08 0 No li 80 -1 ne 70 6- Lo 10 20 ng Fl 07 13 er us 5 h Ac 10 ti ML ve Sy ri ng e Vital Signs 05-30-2013 18:28 Name Value Interpretat Reference Comment ion Range Body 97.8 [degF] Temperature BP 66 mm[Hg] Diastolic BP Systolic 120 mm[Hg] Heart 67 /min Rate/Pulse O2% 99 % Respiratory 20 /min Rate 04-01-2013 20:35 Name Value Interpretat Reference Comment ion Range BP 85 mm[Hg] Diastolic BP Systolic 130 mm[Hg] Heart 85 /min Rate/Pulse O2% 98 % Respiratory 16 /min Rate 04-01-2013 19:42 Name Value Interpretat Reference Comment ion Range BP 53 mm[Hg] Diastolic BP Systolic 122 mm[Hg] Heart 92 /min Rate/Pulse O2% 98 % Respiratory 16 /min Rate 02-12-2013 20:34 Name Value Interpretat Reference Comment ion Range BP 73 mm[Hg] Diastolic BP Systolic 144 mm[Hg] Heart 83 /min Rate/Pulse O2% 98 % Respiratory 16 /min Rate 02-12-2013 20:32 Name Value Interpretat Reference Comment ion Range BP 73 mm[Hg] Diastolic BP Systolic 144 mm[Hg] Heart 83 /min Rate/Pulse O2% 98 % Respiratory 16 /min Rate Results Labs Lab Lab Date Result Refere Interp Status Commen Order Detail nces retati t Range on Urinalysis dipstick W Reflex Microscopic panel in Urine (04-03-2017 13:45) Bacteri TRACE O complet a 017 ed [Presen 13:45 ce] in Urine sedimen t by Light microsc opy Erythro OCC 0 complet cytes 017 ed [Presen 13:45 ce] in Urine sedimen t by Light microsc opy Epithel 3-5 0#/hp complet ial 017 f - ed cells.s 13:45 5#/hp quamous f [Presen ce] in Urine sedimen t by Microsc opy high power field Urinalysis dipstick W Reflex Microscopic panel in Urine (04-03-2017 13:45) Appeara CLEAR CLEAR complet nce of 017 ed Urine 13:45 Bilirub NEGATIV NEG complet in 017 E ed [Presen 13:45 ce] in Urine by Test strip Erythro NEGATIV NEG complet cytes 017 E ed [Presen 13:45 ce] in Urine Color YELLOW YELLOW complet of 017 ed Urine 13:45 Ketones NEGATIV NEG complet 017 E ed [Presen 13:45 ce] in Urine by Automat ed test strip Mucus NEGATIV NEG complet [Presen 017 E ed ce] in 13:45 Urine sedimen t by Light microsc opy Nitrite NEGATIV NEG complet 017 E ed [Presen 13:45 ce] in Urine by Test strip Urobili 0.2 NEG complet nogen 017 ed [Presen 13:45 ce] in Urine by Test strip Differential panel, method unspecified - (03-31-2017 10:22) LYMPH 21 % 10% - Normal complet 017 50% ed 10:22 Platele MOD complet ts 017 INCREAS ed [Presen 10:22 E ce] in Blood by Light microsc opy Differential panel, method unspecified - (03-28-2017 14:09) LYMPH 12 % 10% - Normal complet 017 50% ed 14:09 Platele MOD complet ts 017 INCREAS ed [Presen 14:09 E ce] in Blood by Light microsc opy Differential panel, method unspecified - (03-24-2017 15:40) LYMPH 9 % 10% - Low complet 017 50% ed 15:40 Platele MOD complet ts 017 INCREAS ed [Presen 15:40 E ce] in Blood by Light microsc opy Potassium Bld-sCnc (02-18-2017 07:10) Potassi 4.79 3.5-5.3 complet um 017 mmol/L ed BldA-sC 07:10 nc COMPREHENSIVE METABOLIC PANEL (04-01-2013 19:35) Glucose 189 74-106 complet 013 mg/dL ed Bld-mCn 19:35 c BUN 8 mg/dL 7-18 complet Bld-mCn 013 ed c 19:35 Creat 1.1 0.6-1.0 complet SerPl-m 013 mg/dL ed Cnc 19:35 ESTIMAT 64 50-200 complet ED 013 ML/MIN ed CREATIN 19:35 INE CLEARAN CE GFR 49 59- complet (ESTIMA 013 ML/MIN ed GATITO) 19:35 Sodium 142 136-145 complet SerPl-s 013 mmoL/L ed Cnc 19:35 Potassi 3.8 3.5-5.1 complet um 013 mmoL/L ed SerPl-s 19:35 Cnc Chlorid 102 98-107 complet e 013 mmoL/L ed SerPl-s 19:35 Cnc CO2 33 21.0-32 complet SerPl-s 013 mmoL/L .0 ed Cnc 19:35 Calcium 8.8 8.5-10. complet 013 mg/dL 1 ed SerPl-m 19:35 Cnc Prot 7.3 6.4-8.2 complet SerPl-m 013 gm/dL ed Cnc 19:35 Albumin 3.8 3.4-5.0 complet 013 gm/dL ed SerPl-m 19:35 Cnc Globuli 3.5 1.3-3.2 complet n 013 gm/dL ed Ser-mCn 19:35 c Albumin 1.1 UNK 1.1-1.8 complet /Glob 013 ed SerPl-m 19:35 Rto Bilirub 0.5 0.2-1.0 complet 013 mg/dL ed SerPl-m 19:35 Cnc AST 13 U/L 15-37 complet SerPl-c 013 ed Cnc 19:35 ALT 30 U/L 30-65 complet SerPl-c 013 ed Cnc 19:35 ALP 111 U/L 50-136 complet SerPl-c 013 ed Cnc 19:35 BNP Bld-mCnc (04-01-2013 19:35) BNP 33 0-100 complet Bld-mCn 013 pg/mL ed c 19:35 CBC with AUTO DIFF (04-01-2013 19:35) WBC # 03-2 13.2 4.8-10. complet Bld 013 K/MM3 8 ed Auto 19:35 RBC # 10-03-2 4.17 4.2-5.4 complet Bld 013 M/mm3 ed Auto 19:35 Hgb -03-2 12.9 12.2-16 complet Bld-mCn 013 g/dL .2 ed c 19:35 Hct Fr 04-01-2 38.9 % 37.0-47 complet Bld 013 .0 ed 19:35 MCV RBC 04-01-2 93.4 fl 82.2-97 complet 013 .8 ed 19:35 MCH RBC 04-01-2 31.0 pg 27-31.2 complet Qn 013 ed Auto 19:35 MEAN 03-2 33.2 31.8-35 complet CORPUSC 013 g/dl .4 ed ULAR 19:35 HGB CONC RDW RBC 03-2 14.7 % 11.5-17 complet Auto 013 .5 ed 19:35 Platele 04-01-2 362 142-424 complet t Bld 013 K/mm3 ed Ql 19:35 Manual MEAN 2 7.9 fl 7.4-10. complet PLATELE 013 4 ed T 19:35 VOLUME Granulo -03-2 56.2 % 37.0-80 complet cytes 013 .0 ed Fr Bld 19:35 Auto LYMPH % 10-03-2 38.2 % 10-50.0 complet 013 ed 19:35 Monocyt 10-03-2 3.1 % 1.7-9.3 complet es Fr 013 ed Bld 19:35 Auto Eosinop 10-03-2 1.9 % 0.1-12. complet hil Fr 013 0 ed Bld 19:35 Auto Basophi -03-2 0.6 % 0.1-2.0 complet ls Fr 013 ed Bld 19:35 Auto Granulo 10-03-2 7.4 1.8-7.8 complet cytes # 013 K/mm3 ed Bld 19:35 Auto Lymphoc 10-03-2 5.0 0.7-4.5 complet ytes Fr 013 K/mm3 ed Bld 19:35 Auto Monocyt 10-03-2 0.4 0.1-1.0 complet es # 013 K/mm3 ed Bld 19:35 Auto Eosinop 10-03-2 0.3 0.0-0.4 complet hil # 013 K/mm3 ed Bld 19:35 Auto Basophi -03-2 0.1 0-0.2 complet ls # 013 K/MM3 ed Bld 19:35 Auto URINALYSIS/COMPLETE (02-12-2013 20:10) URINE 08-16-2 YELLOW YELLOW complet COLOR 013 ed 20:10 URINE 08-16-2 CLEAR CLEAR complet APPEARA 013 ed NCE 20:10 URINE 08-16-2 NEGATIV NEG complet GLUCOSE 013 E ed - 20:10 DIPSTIC K URINE 08-16-2 NEGATIV NEG complet BILIRUB 013 E ed IN - 20:10 DIPSTIC K URINE 08-16-2 NEGATIV NEG complet KETONE 013 E mg/dL ed 20:10 URINE 08-16-2 Less 1.005-1 complet SPECIFI 013 than or .030 ed C 20:10 equal GRAVITY to 1.005 URINE 08-16-2 NEGATIV NEG complet BLOOD 013 E ed 20:10 URINE 08-16-2 7.0 UNK 5.0-8.5 complet PH 013 ed 20:10 URINE 08-16-2 NEGATIV NEG complet PROTEIN 013 E mg/dL ed - 20:10 DIPSTIC K URINE 08-16-2 0.2 NEG complet UROBILI 013 E.U./dL ed NOGEN - 20:10 DIPSTIC K URINE 08-16-2 NEGATIV NEG complet NITRATE 013 E ed - 20:10 DIPSTIC K URINE 08-16-2 NEGATIV NEG complet LEUK 013 E ed ESTERAS 20:10 E URINE 08-16-2 OCC O complet WBC 013 wbc/hpf ed 20:10 URINE 08-16-2 OCC 0-5 complet SQUAMOU 013 #/hpf ed S CELLS 20:10 URINE 08-16-2 TRACE NONE complet AMORPH 013 ed SEDIMEN 20:10 T COMPREHENSIVE METABOLIC PANEL (02-12-2013 18:50) Glucose 08-16-2 90 74-106 complet 013 mg/dL ed Bld-mCn 18:50 c BUN 08-16-2 13 7-18 complet Bld-mCn 013 mg/dL ed c 18:50 Creat 08-16-2 1.2 0.6-1.0 complet SerPl-m 013 mg/dL ed Cnc 18:50 ESTIMAT 08-16-2 55 50-200 complet ED 013 ML/MIN ed CREATIN 18:50 INE CLEARAN CE GFR 02-12- 44 59- complet (ESTIMA 013 ML/MIN ed [place]) 18:50 Sodium 16-2 141 136-145 complet SerPl-s 013 mmoL/L ed Cnc 18:50 Potassi 02-12-2 4.0 3.5-5.1 complet um 013 mmoL/L ed SerPl-s 18:50 Cnc Chlorid 02-12- 101 98-107 complet e 013 mmoL/L ed SerPl-s 18:50 Cnc CO2 02-12-2 34 21.0-32 complet SerPl-s 013 mmoL/L .0 ed Cnc 18:50 Calcium 02-12-2 9.2 8.5-10. complet 013 mg/dL 1 ed SerPl-m 18:50 Cnc Prot 02-12-2 7.9 6.4-8.2 complet SerPl-m 013 gm/dL ed Cnc 18:50 Albumin 02-12- 4.1 3.4-5.0 complet 013 gm/dL ed SerPl-m 18:50 Cnc Globuli 02-12-2 3.8 1.3-3.2 complet n 013 gm/dL ed Ser-mCn 18:50 c Albumin 02-12-2 1.1 UNK 1.1-1.8 complet /Glob 013 ed SerPl-m 18:50 Rto Bilirub 02-12-2 0.6 0.2-1.0 complet 013 mg/dL ed SerPl-m 18:50 Cnc AST 02-12-2 8 U/L 15-37 complet SerPl-c 013 ed Cnc 18:50 ALT 02-12-2 28 U/L 30-65 complet SerPl-c 013 ed Cnc 18:50 ALP 16-2 121 U/L 50-136 complet SerPl-c 013 ed Cnc 18:50 CBC with AUTO DIFF (02-12-2013 18:50) WBC # 08-16-2 16.4 4.8-10. complet Bld 013 K/MM3 8 ed Auto 18:50 RBC # -16-2 4.34 4.2-5.4 complet Bld 013 M/mm3 ed Auto 18:50 Hgb 16-2 13.1 12.2-16 complet Bld-mCn 013 g/dL .2 ed c 18:50 Hct Fr 08-16-2 39.8 % 37.0-47 complet Bld 013 .0 ed 18:50 MCV RBC 08-16-2 91.8 fl 82.2-97 complet 013 .8 ed 18:50 MCH RBC 08-16-2 30.1 pg 27-31.2 complet Qn 013 ed Auto 18:50 MEAN 08-16-2 32.8 31.8-35 complet CORPUSC 013 g/dl .4 ed ULAR 18:50 HGB CONC RDW RBC 08-16-2 12.9 % 11.5-17 complet Auto 013 .5 ed 18:50 Platele 08-16-2 456 142-424 complet t Bld 013 K/mm3 ed Ql 18:50 Manual MEAN 08-16-2 7.3 fl 7.4-10. complet PLATELE 013 4 ed T 18:50 VOLUME Granulo 08-16-2 52.7 % 37.0-80 complet cytes 013 .0 ed Fr Bld 18:50 Auto LYMPH % 08-16-2 42.0 % 10-50.0 complet 013 ed 18:50 Monocyt 08-16-2 3.4 % 1.7-9.3 complet es Fr 013 ed Bld 18:50 Auto Eosinop 08-16-2 1.3 % 0.1-12. complet hil Fr 013 0 ed Bld 18:50 Auto Basophi 08-16-2 0.5 % 0.1-2.0 complet ls Fr 013 ed Bld 18:50 Auto Granulo 08-16-2 8.6 1.8-7.8 complet cytes # 013 K/mm3 ed Bld 18:50 Auto Lymphoc 08-16-2 6.9 0.7-4.5 complet ytes Fr 013 K/mm3 ed Bld 18:50 Auto Monocyt 08-16-2 0.6 0.1-1.0 complet es # 013 K/mm3 ed Bld 18:50 Auto Eosinop 08-16-2 0.2 0.0-0.4 complet hil # 013 K/mm3 ed Bld 18:50 Auto Basophi 08-16-2 0.1 0-0.2 complet ls # 013 K/MM3 ed Bld 18:50 Auto Encounters Encounter Start End Date Code Location Performer Type Date Emergency ALFREDITO Muniz MD (ER) 3 17:08 3 18:42 [facility] Emergency ALFREDITO GANN MD (ER) 3 19:13 3 20:38 [facility] Emergency ALFREDITO Gracia MD (ER) 3 19:05 3 20:35 [facility]
--- OUTSIDE RECORDS SUMMARY | 2017-04-10 02:53 | External Medical Summary Rpt | CCD ---
Demographics Home Phone Preferred Language Guatemalan Marital Status Unknown [employer] Affiliation Unknown Race Unknown Ethnic Group Unknown Author Author , MARIA L LISA Address Unknown Phone [email or web address] Care Team Providers Care Dietary Worker Name Role Phone DORINDA GANN MD, Unavailable Unavailable DORINDA GANN MD Purpose Continuity of Care Document - 02-12-2013 through 2016 Problems Code Diagnosis DOS Provider Status 250.01 250.01 DIAB 04-01-2013 [facility], TYPE Hospital I [JUVENILE TYPE], NOT UNCNTRLD 305.1 305.1 04-01-2013 [place] TOBACCO USE [facility] 401.9 401.9 04-01-2013 [place] HYPERTENSIO [facility] NOS Hospital 428.0 428.0 04-01-2013 [place] CONGESTIVE [facility] FAILURE NOS 782.3 782.3 EDEMA 04-01-2013 [facility] Allergies, Adverse Reactions, Alerts Type Allergy to [...] RO 40 -0 SE 96 3- Lo NC 10 20 ng DE 20 13 er [...] Muniz MD (ER) 3 17:08 3 18:42 [facility] Emergency ALFREDITO GANN MD (ER) 3 19:13 3 20:38 [facility] Emergency ALFREDITO Gracia MD (ER) 3 19:05 3 20:[address] [facility]
--- OUTSIDE RECORDS SUMMARY | 2017-04-10 02:53 | External Medical Summary Rpt | CCD ---
Author Author , MARIA L LISA Address Unknown Phone [email or web address] Immunization Name Date Rout CVX Reac Dose Comm Prov Is Faci e tion ent ider Refu lity Give sed n Infl 09-0 135 999 Hist D203 No D203 uenz 8-20 oric 45 45 a, 16 al High Info rmat Dose ion - Sour ce Unsp ecif ied
--- OUTSIDE RECORDS SUMMARY | 2017-04-10 02:53 | External Medical Summary Rpt | CCD ---
Author Author , MARIA L LISA Address Unknown Phone [email or web address] Immunization Name Date Rout CVX Reac Dose Comm Prov Is Faci e tion ent ider Refu lity Give sed n Infl 09-0 135 999 Hist D203 No D203 uenz 8-20 oric 45 45 a, 16 al High Info rmat Dose ion - Sour ce Unsp ecif ied
--- OUTSIDE RECORDS SUMMARY | 2017-04-10 02:55 | External Medical Summary Rpt ---
Author Author [facility] Chinchilla, KANDICEJOHN [employer] Organization [facility] [employer] Address Unknown Phone Unavailable Results Glucose [Mass/volume] in Capillary blood by Glucometer Observa Value Referen Units Interpr Notes Date tion ce etation Range Glucose 70 - 110 mg/dl High No Oct 6 [Mass/vol informati 2017 7:55 ume] in on in PM Capillary source blood by data Glucomete r Glucose [Mass/volume] in Capillary blood by Glucometer Observa Value Referen Units Interpr Notes Date tion ce etation Range Glucose 70 - 110 mg/dl High No Oct 6 [Mass/vol informati 2017 4:44 ume] in on in PM Capillary source blood by data Glucomete r Glucose [Mass/volume] in Capillary blood by Glucometer Observa Value Referen Units Interpr Notes Date tion ce etation Range Glucose 70 - 110 mg/dl High No Oct 6 [Mass/vol informati 2017 ume] in on in 11:20 AM Capillary source blood by data Glucomete r Basic metabolic panel in Blood Observa Value Referen Units Interpr Notes Date tion ce etation Range Urea 7 - 18 mg/dL High No Oct 6 nitrogen informati 2017 6:30 [Mass/vol on in AM ume] in source Serum or data Plasma Calcium 8.5 - mg/dL Low No Oct 6 [Mass/vol 10.1 informati 2017 6:30 ume] in on in AM Serum or source Plasma data Chloride 98 - 107 mmoL/L Normal No Oct 6 [Moles/vo informati 2017 6:30 lume] in on in AM Serum or source Plasma data Carbon 21.0 - mmoL/L Low No Oct 6 dioxide, 32.0 informati 2017 6:30 total on in AM [Moles/vo source lume] in data Serum or Plasma Creatinin 0.55 - mg/dL High No Oct 6 e 1.02 informati 2017 6:30 [Mass/vol on in AM ume] in source Serum or data Plasma Creatinin 50 - 200 ML/MIN Low No Oct 6 e renal informati 2016 6:30 clearance on in AM source predicted data by Cockcroft -Gault formula Estimated 59- ML/MIN Low REFERENCE Oct 6 RANGE: 2017 6:30 glomerula >60 AM r ML/MIN/1. filtratio 73 SQUARE n rate METERSIf (GF this patient is -A merican, then multiply theresult by 1.210. Glucose 74 - 106 mg/dL Normal No Mar 6 [Mass/vol informati 2016 6:30 ume] in on in AM Serum or source Plasma data Potassium 3.5 - 5.1 mmoL/L Normal No Mar 6 informati 2016 6:30 [Moles/vo on in AM lume] in source Serum or data Plasma Sodium 136 - 145 mmoL/L Normal No Mar 6 [Moles/vo informati 2016 6:30 lume] in on in AM Serum or source Plasma data CBC W Auto Differential panel in Blood Observa Value Referen Units Interpr Notes Date tion ce etation Range Basophils 0 - 0.2 K/MM3 Normal No Apr 04 informati 2016 6:30 [#/volume on in AM ] in source Blood by data Automated count Basophils 0.1 - 2.0 % Normal No Oct 6 /100 informati 2017 6:30 leukocyte on in AM s in source Blood by data Automated count Eosinophi 0.0 - 0.4 K/mm3 Normal No Mar 6 ls informati 2016 6:30 [#/volume on in AM ] in source Blood by data Automated count Eosinophi 0.1 - % Normal No Mar 6 ls/100 12.0 informati 2016 6:30 leukocyte on in AM s in source Blood by data Automated count Granulocy 1.8 - 7.8 K/mm3 High No Mar 6 stevie informati 2017 6:30 [#/volume on in AM ] in source Blood by data Automated count Granulocy 37.0 - % Normal No Mar 6 stevie/100 80.0 informati 2016 6:30 leukocyte on in AM s in source Blood by data Automated count Hematocri 37.0 - % Low No Mar 6 t [Volume 47.0 informati 2016 6:30 on in AM Fraction] source of Blood data Hemoglobi 12.2 - g/dL Low No Mar 6 n 16.2 informati 2016 6:30 [Mass/vol on in AM ume] in source Blood data Lymphocyt 0.7 - 4.5 K/mm3 Normal No Mar 6 es informati 2017 6:30 [#/volume on in AM ] in source Unspecifi data ed specimen by Automated count Lymphocyt 10 - 50.0 % Normal No Mar 6 es informati 2017 6:30 [#/volume on in AM ] in source Unspecifi data ed specimen by Automated count Erythrocy 27 - 31.2 pg Normal No Mar 6 te mean informati 2017 6:30 corpuscul on in AM ar source hemoglobi data n [Entitic mass] Erythrocy 31.8 - g/dl Low No Apr 04 te mean 35.4 informati 2017 6:30 corpuscul on in AM ar source hemoglobi data n concentra tion [Mass/vol ume] by Automated count Erythrocy 82.2 - fl Normal No Apr 04 te mean 97.8 informati 2017 6:30 corpuscul on in AM ar volume source [Entitic data volume] by Automated count Monocytes 0.1 - 1.0 K/mm3 Normal No Mar 6 informati 2017 6:30 [#/volume on in AM ] in source Blood by data Automated count Monocytes 1.7 - 9.3 % Normal No Mar 6 /100 informati 2017 6:30 leukocyte on in AM s in source Blood by data Automated count Platelet 7.4 - fl Normal No Apr 04 mean 10.4 informati 2017 6:30 volume on in AM [Entitic source volume] data in Blood by Automated count Platelets 142 - 424 K/mm3 High No Mar 6 informati 2017 6:30 [#/volume on in AM ] in source Blood data Erythrocy 4.2 - 5.4 M/mm3 Low No Mar 6 stevie informati 2017 6:30 [#/volume on in AM ] in source Amniotic data fluid Erythrocy 11.5 - % Normal No Mar 6 te 17.5 informati 2017 6:30 distribut on in AM ion width source [Entitic data volume] by Automated count Leukocyte 4.8 - K/MM3 High No Mar 6 s 10.8 informati 2017 6:30 [#/volume on in AM ] in source Blood data Glucose [Mass/volume] in Capillary blood by Glucometer Observa Value Referen Units Interpr Notes Date tion ce etation Range Glucose 70 - 110 mg/dl No No Mar 6 [Mass/vol informati informati 2017 6:06 ume] in on in on in AM Capillary source source blood by data data Glucomete r Glucose [Mass/volume] in Capillary blood by Glucometer Observa Value Referen Units Interpr Notes Date tion ce etation Range Glucose 70 - 110 mg/dl High No Mar 5 [Mass/vol informati 2016 ume] in on in 10:35 PM Capillary source blood by data Glucomete r Glucose [Mass/volume] in Capillary blood by Glucometer Observa Value Referen Units Interpr Notes Date tion ce etation Range Glucose 70 - 110 mg/dl High No Mar 5 [Mass/vol informati 2016 4:43 ume] in on in PM Capillary source blood by data Glucomete r Urinalysis dipstick W Reflex Microscopic panel in Urine Observa Value Referen Units Interpr Notes Date ti ce etation Range Appeara CLEAR CLEAR No No No Apr 03 nce of informa informa informa 2017 Urine tion in tion in tion in 1:45 PM source source source data data data Bacteri TRACE O No No No Apr 03 a informa informa informa 2016 [Presen tion in tion in tion in 1:45 PM ce] in source source source Urine data data data sedimen t by Light microsc opy Bilirub NEGATIV NEG No No No Apr 03 in E informa informa informa 2016 [Presen tion in tion in tion in 1:45 PM ce] in source source source Urine data data data by Test strip Erythro NEGATIV NEG No No No Apr 03 cytes E informa informa informa 2016 [Presen tion in tion in tion in 1:45 PM ce] in source source source Urine data data data Color YELLOW YELLOW No No No Apr 03 of informa informa informa 2017 Urine tion in tion in tion in 1:45 PM source source source data data data Glucose NEG No No No Apr 03 [Mass/vol informati informati informati 2017 1:45 ume] in on in on in on in PM Urine by source source source Test data data data strip Ketones NEGATIV NEG mg/dL No No Apr 03 E informa informa 2017 [Presen tion in tion in 1:45 PM ce] in source source Urine data data by Automat ed test strip Mucus NEGATIV NEG No No No Apr 03 [Presen E informa informa informa 2016 ce] in tion in tion in tion in 1:45 PM Urine source source source sedimen data data data t by Light microsc opy Nitrite NEGATIV NEG No No No Apr 03 E informa informa informa 2016 [Presen tion in tion in tion in 1:45 PM ce] in source source source Urine data data data by Test strip pH of 5.0 - 8.5 No Normal No Apr 03 Urine informati informati 2017 1:45 on in on in PM source source data data Protein NEG mg/dL No No Apr 03 [Mass/vol informati informati 2016 1:45 ume] in on in on in PM Urine by source source Automated data data test strip Erythro OCC 0 rbc/hpf No No Apr 03 cytes informa informa 2016 [Presen tion in tion in 1:45 PM ce] in source source Urine data data sedimen t by Light microsc opy Specific 1.005 - No Normal No Apr 03 gravity 1.030 informati informati 2017 1:45 of Urine on in on in PM source source data data Epithel 3-5 0 - 5 #/hpf No No Apr 03 ial informa informa 2017 cells.s tion in tion in 1:45 PM quamous source source data data [Presen ce] in Urine sedimen t by Microsc opy high power field Urobili 0.2 NEG E.U./dL No No Apr 03 nogen informa informa 2016 [Presen tion in tion in 1:45 PM ce] in source source Urine data data by Test strip Leukocyte O wbc/hpf No No Apr 03 s informati informati 2016 1:45 [#/volume on in on in PM ] in source source Urine data data Urinalysis dipstick W Reflex Microscopic panel in Urine Observa Value Referen Units Interpr Notes Date tion ce etation Range Appeara CLEAR CLEAR No No No Apr 03 nce of informa informa informa 2017 Urine tion in tion in tion in 1:45 PM source source source data data data Bilirub NEGATIV NEG No No No Apr 03 in E informa informa informa 2016 [Presen tion in tion in tion in 1:45 PM ce] in source source source Urine data data data by Test strip Erythro NEGATIV NEG No No No Apr 03 cytes E informa informa informa 2016 [Presen tion in tion in tion in 1:45 PM ce] in source source source Urine data data data Color YELLOW YELLOW No No No Apr 03 of informa informa informa 2017 Urine tion in tion in tion in 1:45 PM source source source data data data Glucose NEG No No No Apr 03 [Mass/vol informati informati informati 2016 1:45 ume] in on in on in on in PM Urine by source source source Test data data data strip Ketones NEGATIV NEG mg/dL No No Apr 03 E informa informa 2016 [Presen tion in tion in 1:45 PM ce] in source source Urine data data by Automat ed test strip Mucus NEGATIV NEG No No No Apr 03 [Presen E informa informa informa 2016 ce] in tion in tion in tion in 1:45 PM Urine source source source sedimen data data data t by Light microsc opy Nitrite NEGATIV NEG No No No Apr 03 E informa informa informa 2016 [Presen tion in tion in tion in 1:45 PM ce] in source source source Urine data data data by Test strip pH of 5.0 - 8.5 No Normal No Apr 03 Urine informati informati 2017 1:45 on in on in PM source source data data Protein NEG mg/dL No No Apr 03 [Mass/vol informati informati 2016 1:45 ume] in on in on in PM Urine by source source Automated data data test strip Specific 1.005 - No Normal No Apr 03 gravity 1.030 informati informati 2017 1:45 of Urine on in on in PM source source data data Urobili 0.2 NEG E.U./dL No No Apr 03 nogen informa informa 2016 [Presen tion in tion in 1:45 PM ce] in source source Urine data data by Test strip DIARRHEA PANEL,PCR Observa Value Referen Units Interpr Notes Date tion ce etation Range Adenovi NOT NOT No No No Apr 03 anny DETECTE DETECTE informa informa informa 2017 40+41 D tion in tion in tion in 11:20 Ag source source source AM [Presen data data data ce] in Stool Aeromon NOT NOT No No No Apr 03 as DETECTE DETECTE informa informa informa 2017 salmoni D tion in tion in tion in 11:20 peng source source source AM [Presen data data data ce] in Unspeci fied specime n Astrovi NOT NOT No No No Apr 03 anny DETECTE DETECTE informa informa informa 2017 [Presen D tion in tion in tion in 11:20 ce] in source source source AM Stool data data data by Electro n microsc opy Campylo NOT NOT No No No Apr 03 bacter DETECTE DETECTE informa informa informa 2017 sp Ab D tion in tion in tion in 11:20 [Presen source source source AM ce] in data data data Serum Clostri NOT NOT No No No Apr 03 dium DETECTE DETECTE informa informa informa 2017 diffici D tion in tion in tion in 11:20 le source source source AM toxin data data data A+B [Presen ce] in Stool Cryptos NOT NOT No No No Apr 03 poridiu DETECTE DETECTE informa informa informa 2017 m sp Ag D tion in tion in tion in 11:20 source source source AM [Presen data data data ce] in Unspeci fied specime n Cyclosp NOT NOT No No No Apr 03 ora DETECTE DETECTE informa informa informa 2017 cayetan D tion in tion in tion in 11:20 ucrly source source source AM [Presen data data data ce] in Unspeci fied specime n Escheri NOT NOT No No No Apr 03 nam DETECTE DETECTE informa informa informa 2017 coli D tion in tion in tion in 11:20 [Presen source source source AM ce] in data data data Unspeci fied specime n by Culture FDA method Escheri NOT NOT No No No Apr 03 nam DETECTE DETECTE informa informa informa 2017 coli D tion in tion in tion in 11:20 [Presen source source source AM ce] in data data data Unspeci fied specime n by Culture FDA method Escheri NOT NOT No No No Mar 5 nam DETECTE DETECTE informa informa informa 2017 coli D tion in tion in tion in 11:20 Shiga-l source source source AM niki data data data toxin 1 assa Escheri NOT NOT No No No Apr 03 nam DETECTE DETECTE informa informa informa 2016 coli D tion in tion in tion in 11:20 [id number] source source source AM data data data [Presen ce] in Stool by Sushila m specifi c culture Entamoe NOT NOT No No No Apr 03 ba DETECTE DETECTE informa informa informa 2017 histoly D tion in tion in tion in 11:20 chantel source source source AM [Presen data data data ce] in Stool by Trichro me stain Giardia NOT NOT No No No Apr 03 DETECTE DETECTE informa informa informa 2016 lamblia D tion in tion in tion in 11:20 Ag source source source AM [Presen data data data ce] in Stool Norovir NOT NOT No No No Apr 03 us Ag DETECTE DETECTE informa informa informa 2016 [Presen D tion in tion in tion in 11:20 ce] in source source source AM Stool data data data Stool NOT NOT No No No Apr 03 Plesiom DETECTE DETECTE informa informa informa 2017 onas D tion in tion in tion in 11:20 shigell source source source AM oides data data data DNA detec Rotavir NOT NOT No No No Apr 03 us RNA DETECTE DETECTE informa informa informa 2017 detecti D tion in tion in tion in 11:20 on by source source source AM probe data data data and tar Salmone NOT NOT No No No Apr 03 lla sp DETECTE DETECTE informa informa informa 2016 DNA D tion in tion in tion in 11:20 [Identi source source source AM fier] data data data in Unspeci fied specime n by Probe & target amplifi cation method Caliciv NOT NOT No No No Apr 03 irus DETECTE DETECTE informa informa informa 2016 [Identi D tion in tion in tion in 11:20 fier] source source source AM in data data data Stool by Electro n microsc opy Escheri NOT NOT No No No Apr 03 nam DETECTE DETECTE informa informa informa 2016 coli D tion in tion in tion in 11:20 [Presen source source source AM ce] in data data data Unspeci fied specime n by Culture FDA method Escheri NOT NOT No No No Apr 03 nam DETECTE DETECTE informa informa informa 2017 coli D tion in tion in tion in 11:20 SXT source source source AM gene+H7 data data data gene [Identi fier] in Unspeci fied specime n by Probe & target amplifi cation method Vibrio NOT NOT No No No Apr 03 cholera DETECTE DETECTE informa informa informa 2016 e DNA D tion in tion in tion in 11:20 [Presen source source source AM ce] in data data data Unspeci fied specime n by Probe & target amplifi cation method Vibrio NOT NOT No No No Mar 5 sp DNA DETECTE DETECTE informa informa informa 2016 [Identi D tion in tion in tion in 11:20 fier] source source source AM in data data data Unspeci fied specime n by Probe & target amplifi cation method Vibrio NOT NOT No No No Apr 03 sp DETECTE DETECTE informa informa informa 2017 identif D tion in tion in tion in 11:20 ied in source source source AM Stool data data data by Organis m specifi c culture Comprehensive metabolic 2000 panel in Serum or Plasma Observa Value Referen Units Interpr Notes Date tion ce etation Range Albumin/G 1.1 - 1.8 No Low No Apr 03 lobulin informati informati 2016 [Mass on in on in 10:00 AM ratio] in source source Serum or data data Plasma Albumin 3.4 - 5.0 gm/dL Low No Apr 03 [Mass/vol informati 2016 ume] in on in 10:00 AM Serum or source Plasma data Alkaline 46 - 116 U/L Normal No Apr 03 phosphata informati 2017 se on in 10:00 AM [Enzymati source c data activity/ volume] in Serum or Plasma Bilirubin 0.2 - 1.0 mg/dL Normal No Apr 03 .total informati 2016 [Mass/vol on in 10:00 AM ume] in source Serum or data Plasma Urea 7 - 18 mg/dL High No Apr 03 nitrogen informati 2016 [Mass/vol on in 10:00 AM ume] in source Serum or data Plasma Calcium 8.5 - mg/dL Normal No Apr 03 [Mass/vol 10.1 informati 2017 ume] in on in 10:00 AM Serum or source Plasma data Chloride 98 - 107 mmoL/L Low No Oct 5 [Moles/vo informati 2017 lume] in on in 10:00 AM Serum or source Plasma data Carbon 21.0 - mmoL/L Normal No Oct 5 dioxide, 32.0 informati 2017 total on in 10:00 AM [Moles/vo source lume] in data Serum or Plasma Creatinin 0.55 - mg/dL High No Oct 5 e 1.02 informati 2017 [Mass/vol on in 10:00 AM ume] in source Serum or data Plasma Creatinin 50 - 200 ML/MIN Low No Oct 5 e renal informati 2017 clearance on in 10:00 AM source predicted data by Cockcroft -Gault formula Estimated 59- ML/MIN Low alert REFERENCE Oct 5 RANGE: 2017 glomerula >60 10:00 AM r ML/MIN/1. filtratio 73 SQUARE n rate METERSIf (GF this patient is -A merican, then multiply theresult by 1.210. Globulin 1.3 - 3.2 gm/dL High No Oct 5 [Mass/vol informati 2016 ume] in on in 10:00 AM Serum source data Glucose 74 - 106 mg/dL High No Oct 5 [Mass/vol informati 2017 ume] in on in 10:00 AM Serum or source Plasma data Potassium 3.5 - 5.1 mmoL/L Low No Oct 5 informati 2017 [Moles/vo on in 10:00 AM lume] in source Serum or data Plasma Sodium 136 - 145 mmoL/L Low No Oct 5 [Moles/vo informati 2017 lume] in on in 10:00 AM Serum or source Plasma data Aspartate 15 - 37 U/L No No Oct 5 informati informati 2017 aminotran on in on in 10:00 AM sferase source source [Enzymati data data c activity/ volume] in Serum or Plasma Alanine 12 - 78 U/L No No Oct 5 aminotran informati informati 2017 sferase on in on in 10:00 AM [Enzymati source source c data data activity/ volume] in Serum or Plasma Protein 6.4 - 8.2 gm/dL Normal No Oct 5 [Mass/vol informati 2017 ume] in on in 10:00 AM Serum or source Plasma data Lipase [Enzymatic activity/volume] in Serum or Plasma Observa Value Referen Units Interpr Notes Date tion ce etation Range Lipase 73 - 393 U/L Low No Apr 03 [Enzymati 2016 c on in 10:00 AM activity/ source volume] data in Serum or Plasma Magnesium [Moles/volume] in Unspecified specimen Observa Value Referen Units Interpr Notes Date tion ce etation Range Magnesium 1.4 - 2.2 mg/dL Normal No Apr [id number] [Moles/vo on in 10:00 AM lume] in source Unspecifi data ed specimen Troponin I.cardiac [Mass/volume] in Serum or Plasma Observa Value Referen Units Interpr Notes Date tion ce etation Range Troponin 0.00 - ng/mL Normal No Apr 03 I.cardiac 0.06 2016 on in 10:00 AM [Mass/vol source ume] in data Serum or Plasma Acetone [Mass/volume] in Serum or Plasma Observa Value Referen Units Interpr Notes Date tion ce etation Range Acetone NOT No No No Apr 03 [Mass/vol DETECTD informati inform2016 ume] in on in on in on in 10:00 AM Serum or source source source Plasma data data data CBC W Auto Differential panel in Blood Observa Value Referen Units Interpr Notes Date ti ce etation Range Basophils 0 - 0.2 K/MM3 Normal No Apr [id number] [#/volume on in 10:00 AM ] in source Blood by data Automated count Basophils 0.1 - 2.0 % Normal No Apr 03 /100 2016 leukocyte on in 10:00 AM s in source Blood by data Automated count Eosinophi 0.0 - 0.4 K/mm3 Normal No Apr 03 ls 2016 [#/volume on in 10:00 AM ] in source Blood by data Automated count Eosinophi 0.1 - % Normal No Apr 03 ls/100 12.0 2016 leukocyte on in 10:00 AM s in source Blood by data Automated count Granulocy 1.8 - 7.8 K/mm3 High No Apr 03 stevie 2016 [#/volume on in 10:00 AM ] in source Blood by data Automated count Granulocy 37.0 - % Normal No Apr 03 stevie/100 80.0 2016 leukocyte on in 10:00 AM s in source Blood by data Automated count Hematocri 37.0 - % Low No Apr 03 t [Volume 47.0 informati 2016 on in 10:00 AM Fraction] source of Blood data Hemoglobi 12.2 - g/dL Low No Apr 03 n 16.2 informati 2016 [Mass/vol on in 10:00 AM ume] in source Blood data Lymphocyt 0.7 - 4.5 K/mm3 Normal No Apr 03 es inform2016 [#/volume on in 10:00 AM ] in source Unspecifi data ed specimen by Automated count Lymphocyt 10 - 50.0 % Normal No Apr 03 es inform2016 [#/volume on in 10:00 AM ] in source Unspecifi data ed specimen by Automated count Erythrocy 27 - 31.2 pg Normal No Apr 03 te mean inform2016 corpuscul on in 10:00 AM ar source hemoglobi data n [Entitic mass] Erythrocy 31.8 - g/dl Normal No Apr 03 te mean 35.4 inform2016 corpuscul on in 10:00 AM ar source hemoglobi data n concentra tion [Mass/vol ume] by Automated count Erythrocy 82.2 - fl Normal No Apr 03 te mean 97.8 inform2016 corpuscul on in 10:00 AM ar volume source [Entitic data volume] by Automated count Monocytes 0.1 - 1.0 K/mm3 Normal No Apr [id number] [#/volume on in 10:00 AM ] in source Blood by data Automated count Monocytes 1.7 - 9.3 % Normal No Apr 03 /100 inform2016 leukocyte on in 10:00 AM s in source Blood by data Automated count Platelet 7.4 - fl Normal No Apr 03 mean 10.4 inform2016 volume on in 10:00 AM [Entitic source volume] data in Blood by Automated count Platelets 142 - 424 K/mm3 High No Apr 03 inform2016 [#/volume on in 10:00 AM ] in source Blood data Erythrocy 4.2 - 5.4 M/mm3 Low No Apr 03 stevie informati 2016 [#/volume on in 10:00 AM ] in source Amniotic data fluid Erythrocy 11.5 - % Normal No Apr 03 te 17.5 inform2016 distribut on in 10:00 AM ion width source [Entitic data volume] by Automated count Leukocyte 4.8 - K/MM3 High No Apr 03 s 10.8 informati 2016 [#/volume on in 10:00 AM ] in source Blood data CBC W Auto Differential panel in Blood Observa Value Referen Units Interpr Notes Date tion ce etation Range Basophils 0 - 0.2 K/MM3 Normal No Oct 2 inform2016 [#/volume on in 10:22 AM ] in source Blood by data Automated count Basophils 0.1 - 2.0 % Normal No Oct 2 /100 inform2016 leukocyte on in 10:22 AM s in source Blood by data Automated count Eosinophi 0.0 - 0.4 K/mm3 Normal No Oct 2 ls informati 2016 [#/volume on in 10:22 AM ] in source Blood by data Automated count Eosinophi 0.1 - % Normal No Mar 2 ls/100 12.0 informati 2016 leukocyte on in 10:22 AM s in source Blood by data Automated count Granulocy 1.8 - 7.8 K/mm3 High No Mar 2 steive inform2016 [#/volume on in 10:22 AM ] in source Blood by data Automated count Granulocy 37.0 - % High No Mar 2 stevie/100 80.0 2016 leukocyte on in 10:22 AM s in source Blood by data Automated count Hematocri 37.0 - % Low No Mar 2 t [Volume 47.0 ati 2016 on in 10:22 AM Fraction] source of Blood data Hemoglobi 12.2 - g/dL Low No Mar 2 n 16.2 inform2016 [Mass/vol on in 10:22 AM ume] in source Blood data Lymphocyt 0.7 - 4.5 K/mm3 Normal No Mar 2 es inform2016 [#/volume on in 10:22 AM ] in source Unspecifi data ed specimen by Automated count Lymphocyt 10 - 50.0 % Normal No Mar 2 es 2016 [#/volume on in 10:22 AM ] in source Unspecifi data ed specimen by Automated count Erythrocy 27 - 31.2 pg Low No Oct 2 te mean inform2016 corpuscul on in 10:22 AM ar source hemoglobi data n [Entitic mass] Erythrocy 31.8 - g/dl Low No Mar 2 te mean 35.4 inform2016 corpuscul on in 10:22 AM ar source hemoglobi data n concentra tion [Mass/vol ume] by Automated count Erythrocy 82.2 - fl Normal No Mar 2 te mean 97.8 2016 corpuscul on in 10:22 AM ar volume source [Entitic data volume] by Automated count Monocytes 0.1 - 1.0 K/mm3 Normal No Mar 2 2016 [#/volume on in 10:22 AM ] in source Blood by data Automated count Monocytes 1.7 - 9.3 % Normal No Mar [id number] leukocyte on in 10:22 AM s in source Blood by data Automated count Platelet 7.4 - fl Normal No Mar 31 mean 10.4 2016 volume on in 10:22 AM [Entitic source volume] data in Blood by Automated count Platelets 142 - 424 K/mm3 High No Mar 31 inform2016 [#/volume on in 10:22 AM ] in source Blood data Erythrocy 4.2 - 5.4 M/mm3 Low No Mar 2 stevie 2016 [#/volume on in 10:22 AM ] in source Amniotic data fluid Erythrocy 11.5 - % Normal No Mar 31 te 17.5 2016 distribut on in 10:22 AM ion width source [Entitic data volume] by Automated count Leukocyte 4.8 - K/MM3 High No Mar 31 s 10.8 2016 [#/volume on in 10:22 AM ] in source Blood data Differential panel, method unspecified - Observa Value Referen Units Interpr Notes Date tion ce etation Range Eosinophi 0 - 3 % Normal No Mar 2 ls/100 2016 leukocyte on in 10:22 AM s in source Blood by data Manual count LYMPH 21 10 - 50 % Normal No Mar [id number] tion in 10:22 source AM data Monocytes 2 - 9 % Normal No Mar [id number] leukocyte on in 10:22 AM s in source Blood by data Automated count Platele MOD No No No No Mar 31 ts INCREAS informa informa informa informa 2016 [Presen E tion in tion in tion in tion in 10:22 ce] in source source source source AM Blood data data data data by Light microsc opy Neutrophi 42 - 76 % Normal No Mar 31 ls 2016 [#/volume on in 10:22 AM ] in source Blood by data Automated count Cells No #CELLS No No Mar 31 Counted informati ati 2016 Total [#] on in on in on in 10:22 AM in Blood source source source data data data Amylase [Enzymatic activity/volume] in Serum or Plasma Observa Value Referen Units Interpr Notes Date tion ce etation Range Amylase 25 - 115 U/L Low No Oct 2 [Enzymati informati 2017 c on in 10:22 AM activity/ source volume] data in Serum or Plasma Comprehensive metabolic 2000 panel in Serum or Plasma Observa Value Referen Units Interpr Notes Date tion ce etation Range Albumin/G 1.1 - 1.8 No Low No Oct 2 lobulin informati informati 2017 [Mass on in on in 10:22 AM ratio] in source source Serum or data data Plasma Albumin 3.4 - 5.0 gm/dL Low No Oct 2 [Mass/vol informati 2017 ume] in on in 10:22 AM Serum or source Plasma data Alkaline 46 - 116 U/L Normal No Oct 2 phosphata informati 2017 se on in 10:22 AM [Enzymati source c data activity/ volume] in Serum or Plasma Bilirubin 0.2 - 1.0 mg/dL Normal No Oct 2 .total informati 2017 [Mass/vol on in 10:22 AM ume] in source Serum or data Plasma Urea 7 - 18 mg/dL High No Oct 2 nitrogen informati 2017 [Mass/vol on in 10:22 AM ume] in source Serum or data Plasma Calcium 8.5 - mg/dL Normal No Oct 2 [Mass/vol 10.1 informati 2017 ume] in on in 10:22 AM Serum or source Plasma data Chloride 98 - 107 mmoL/L Low No Oct 2 [Moles/vo informati 2017 lume] in on in 10:22 AM Serum or source Plasma data Carbon 21.0 - mmoL/L Normal No Oct 2 dioxide, 32.0 informati 2017 total on in 10:22 AM [Moles/vo source lume] in data Serum or Plasma Creatinin 0.55 - mg/dL High No Oct 2 e 1.02 informati 2017 [Mass/vol on in 10:22 AM ume] in source Serum or data Plasma Creatinin 50 - 200 ML/MIN Low No Oct 2 e renal informati 2017 clearance on in 10:22 AM source predicted data by Cockcroft -Gault formula Estimated 59- ML/MIN Low REFERENCE Oct 2 RANGE: 2017 glomerula >60 10:22 AM r ML/MIN/1. filtratio 73 SQUARE n rate METERSIf (GF this patient is -A merican, then multiply theresult by 1.210. Globulin 1.3 - 3.2 gm/dL High No Mar 2 [Mass/vol informati 2017 ume] in on in 10:22 AM Serum source data Glucose 74 - 106 mg/dL High No Mar 2 [Mass/vol informati 2016 ume] in on in 10:22 AM Serum or source Plasma data Potassium 3.5 - 5.1 mmoL/L Normal No Mar 31 inform2016 [Moles/vo on in 10:22 AM lume] in source Serum or data Plasma Sodium 136 - 145 mmoL/L Normal No Mar 2 [Moles/vo informati 2016 lume] in on in 10:22 AM Serum or source Plasma data Aspartate 15 - 37 U/L Normal No Mar [id number] aminotran on in 10:22 AM sferase source [Enzymati data c activity/ volume] in Serum or Plasma Alanine 12 - 78 U/L Normal No Mar 31 aminotran inform2016 sferase on in 10:22 AM [Enzymati source c data activity/ volume] in Serum or Plasma Protein 6.4 - 8.2 gm/dL Normal No Mar 2 [Mass/vol informati 2016 ume] in on in 10:22 AM Serum or source Plasma data Lipase [Enzymatic activity/volume] in Serum or Plasma Observa Value Referen Units Interpr Notes Date tion ce etation Range Lipase 73 - 393 U/L Low No Mar 2 [Enzymati informati 2017 c on in 10:22 AM activity/ source volume] data in Serum or Plasma CBC W Auto Differential panel in Blood Observa Value Referen Units Interpr Notes Date tion ce etation Range Basophils 0 - 0.2 K/MM3 Normal No Sep inform2016 2:09 [#/volume on in PM ] in source Blood by data Automated count Basophils 0.1 - 2.0 % Normal No Sep / informati 2016 2:09 leukocyte on in PM s in source Blood by data Automated count Eosinophi 0.0 - 0.4 K/mm3 Normal No Sep 29 ls informati 2016 2:09 [#/volume on in PM ] in source Blood by data Automated count Eosinophi 0.1 - % Normal No Sep ls/100 12.0 informati 2016 2:09 leukocyte on in PM s in source Blood by data Automated count Granulocy 1.8 - 7.8 K/mm3 High No Sep 29 stevie informati 2017 2:09 [#/volume on in PM ] in source Blood by data Automated count Granulocy 37.0 - % Normal No Sep 29 stevie/100 80.0 informati 2017 2:09 leukocyte on in PM s in source Blood by data Automated count Hematocri 37.0 - % Low No Sep 29 t [Volume 47.0 informati 2016 2:09 on in PM Fraction] source of Blood data Hemoglobi 12.2 - g/dL Low No Sep 29 n 16.2 informati 2016 2:09 [Mass/vol on in PM ume] in source Blood data Lymphocyt 0.7 - 4.5 K/mm3 Normal No Sep 29 es informati 2017 2:09 [#/volume on in PM ] in source Unspecifi data ed specimen by Automated count Lymphocyt 10 - 50.0 % Normal No Sep 29 es informati 2016 2:09 [#/volume on in PM ] in source Unspecifi data ed specimen by Automated count Erythrocy 27 - 31.2 pg Normal No Sep 29 te mean informati 2017 2:09 corpuscul on in PM ar source hemoglobi data n [Entitic mass] Erythrocy 31.8 - g/dl Low No Sep 29 te mean 35.4 informati 2017 2:09 corpuscul on in PM ar source hemoglobi data n concentra tion [Mass/vol ume] by Automated count Erythrocy 82.2 - fl Normal No Sep 29 te mean 97.8 informati 2016 2:09 corpuscul on in PM ar volume source [Entitic data volume] by Automated count Monocytes 0.1 - 1.0 K/mm3 Normal No Sep 29 informati 2016 2:09 [#/volume on in PM ] in source Blood by data Automated count Monocytes 1.7 - 9.3 % Normal No Sep 29 /100 informati 2017 2:09 leukocyte on in PM s in source Blood by data Automated count Platelet 7.4 - fl Normal No Sep 29 mean 10.4 informati 2016 2:09 volume on in PM [Entitic source volume] data in Blood by Automated count Platelets 142 - 424 K/mm3 High No Sep 29 informati 2016 2:09 [#/volume on in PM ] in source Blood data Erythrocy 4.2 - 5.4 M/mm3 Low No Sep 29 stevie informati 2017 2:09 [#/volume on in PM ] in source Amniotic data fluid Erythrocy 11.5 - % Normal No Sep 29 te 17.5 informati 2017 2:09 distribut on in PM ion width source [Entitic data volume] by Automated count Leukocyte 4.8 - K/MM3 High No Sep 29 s 10.8 informati 2017 2:09 [#/volume on in PM ] in source Blood data Differential panel, method unspecified - Observa Value Referen Units Interpr Notes Date tion ce etation Range Neutrophi 0 - 8 % Normal No Sep 29 ls.band informati 2017 2:09 form/100 on in PM leukocyte source s in data Blood by Automated count Eosinophi 0 - 3 % Normal No Sep 29 ls/100 informati 2016 2:09 leukocyte on in PM s in source Blood by data Manual count LYMPH 12 10 - 50 % Normal No Sep 29 informa 2017 tion in 2:09 PM source data Monocytes 2 - 9 % Normal No Sep 29 /100 informati 2016 2:09 leukocyte on in PM s in source Blood by data Automated count Platele MOD No No No No Sep 29 ts INCREAS informa informa informa informa 2016 [Presen E tion in tion in tion in tion in 2:09 PM ce] in source source source source Blood data data data data by Light microsc opy Neutrophi 42 - 76 % High No Sep 29 ls informati 2016 2:09 [#/volume on in PM ] in source Blood by data Automated count Cells No #CELLS No No Sep 29 Counted informati informati informati 2016 2:09 Total [#] on in on in on in PM in Blood source source source data data data Lactate [Moles/volume] in Blood Observa Value Referen Units Interpr Notes Date tion ce etation Range Lactate 0.4 - 2.0 mmol/L Normal No Sep 29 [Moles/vo informati 2016 2:09 lume] in on in PM Blood source data Basic metabolic panel in Blood Observa Value Referen Units Interpr Notes Date tion ce etation Range Urea 7 - 18 mg/dL High No Sep 26 nitrogen informati 2017 6:18 [Mass/vol on in AM ume] in source Serum or data Plasma Calcium 8.5 - mg/dL Low No Sep 26 [Mass/vol 10.1 informati 2017 6:18 ume] in on in AM Serum or source Plasma data Chloride 98 - 107 mmoL/L Low No Sep 26 [Moles/vo informati 2017 6:18 lume] in on in AM Serum or source Plasma data Carbon 21.0 - mmoL/L Normal No Sep 26 dioxide, 32.0 informati 2017 6:18 total on in AM [Moles/vo source lume] in data Serum or Plasma Creatinin 0.55 - mg/dL High No Sep 26 e 1.02 informati 2017 6:18 [Mass/vol on in AM ume] in source Serum or data Plasma Creatinin 50 - 200 ML/MIN Low No Sep 26 e renal informati 2017 6:18 clearance on in AM source predicted data by Cockcroft -Gault formula Estimated 59- ML/MIN Low REFERENCE Sep 26 RANGE: 2017 6:18 glomerula >60 AM r ML/MIN/1. filtratio 73 SQUARE n rate METERSIf (GF this patient is -A merican, then multiply theresult by 1.210. Glucose 74 - 106 mg/dL Normal No Sep 26 [Mass/vol informati 2017 6:18 ume] in on in AM Serum or source Plasma data Potassium 3.5 - 5.1 mmoL/L Normal No Sep 26 informati 2017 6:18 [Moles/vo on in AM lume] in source Serum or data Plasma Sodium 136 - 145 mmoL/L Low No Sep 26 [Moles/vo informati 2017 6:18 lume] in on in AM Serum or source Plasma data Lactate [Moles/volume] in Blood Observa Value Referen Units Interpr Notes Date tion ce etation Range Lactate 0.4 - 2.0 mmol/L Normal No Sep 26 [Moles/vo informati 2017 6:18 lume] in on in AM Blood source data CBC W Auto Differential panel in Blood Observa Value Referen Units Interpr Notes Date tion ce etation Range Granulocy 1.8 - 7.8 K/mm3 High No Sep 26 stevie informati 2017 6:18 [#/volume on in AM ] in source Blood by data Automated count Granulocy 37.0 - % High No Sep 26 stevie/100 80.0 informati 2017 6:18 leukocyte on in AM s in source Blood by data Automated count Hematocri 37.0 - % Low No Sep 26 t [Volume 47.0 informati 2017 6:18 on in AM Fraction] source of Blood data Hemoglobi 12.2 - g/dL Low No Sep 26 n 16.2 informati 2017 6:18 [Mass/vol on in AM ume] in source Blood data Lymphocyt 0.7 - 4.5 K/mm3 Normal No Sep 26 es informati 2017 6:18 [#/volume on in AM ] in source Unspecifi data ed specimen by Automated count Lymphocyt 10 - 50.0 % Low No Sep 26 es informati 2017 6:18 [#/volume on in AM ] in source Unspecifi data ed specimen by Automated count Erythrocy 27 - 31.2 pg Normal No Sep 26 te mean informati 2017 6:18 corpuscul on in AM ar source hemoglobi data n [Entitic mass] Erythrocy 31.8 - g/dl Normal No Sep 26 te mean 35.4 informati 2017 6:18 corpuscul on in AM ar source hemoglobi data n concentra tion [Mass/vol ume] by Automated count Erythrocy 82.2 - fL Normal No Sep 26 te mean 97.8 informati 2017 6:18 corpuscul on in AM ar volume source [Entitic data volume] by Automated count Monocytes 0.1 - 1.0 K/mm3 Normal No Sep 26 informati 2017 6:18 [#/volume on in AM ] in source Blood by data Automated count Monocytes 1.7 - 9.3 % Normal No Sep 26 /100 informati 2017 6:18 leukocyte on in AM s in source Blood by data Automated count Platelets 142 - 424 K/mm3 Normal No Sep 26 informati 2017 6:18 [#/volume on in AM ] in source Blood data Erythrocy 4.2 - 5.4 M/mm3 Low No Sep 26 stevie informati 2017 6:18 [#/volume on in AM ] in source Amniotic data fluid Erythrocy 11.5 - % High No Sep 26 te 17.5 informati 2017 6:18 distribut on in AM ion width source [Entitic data volume] by Automated count Leukocyte 4.8 - K/mm3 High No Sep 26 s 10.8 informati 2017 6:18 [#/volume on in AM ] in source Blood data Comprehensive metabolic 2000 panel in Serum or Plasma Observa Value Referen Units Interpr Notes Date tion ce etation Range Albumin/G 1.1 - 1.8 No Low No Sep 26 lobulin informati informati 2017 6:18 [Mass on in on in AM ratio] in source source Serum or data data Plasma Albumin 3.4 - 5.0 gm/dL Low No Sep 26 [Mass/vol informati 2017 6:18 ume] in on in AM Serum or source Plasma data Alkaline 46 - 116 U/L Normal No Sep 26 phosphata informati 2017 6:18 se on in AM [Enzymati source c data activity/ volume] in Serum or Plasma Bilirubin 0.2 - 1.0 mg/dL Normal No Sep 26 .total informati 2017 6:18 [Mass/vol on in AM ume] in source Serum or data Plasma Urea 7 - 18 mg/dL High No Sep 26 nitrogen informati 2017 6:18 [Mass/vol on in AM ume] in source Serum or data Plasma Calcium 8.5 - mg/dL Normal No Sep 26 [Mass/vol 10.1 informati 2017 6:18 ume] in on in AM Serum or source Plasma data Chloride 98 - 107 mmoL/L Low No Sep 26 [Moles/vo informati 2017 6:18 lume] in on in AM Serum or source Plasma data Carbon 21.0 - mmoL/L Normal No Sep 26 dioxide, 32.0 informati 2017 6:18 total on in AM [Moles/vo source lume] in data Serum or Plasma Creatinin 0.55 - mg/dL High No Sep 26 e 1.02 informati 2017 6:18 [Mass/vol on in AM ume] in source Serum or data Plasma Creatinin 50 - 200 ML/MIN Low No Sep 26 e renal informati 2016 6:18 clearance on in AM source predicted data by Cockcroft -Gault formula Estimated 59- ML/MIN Low REFERENCE Sep 26 RANGE: 2017 6:18 glomerula >60 AM r ML/MIN/1. filtratio 73 SQUARE n rate METERSIf (GF this patient is -A merican, then multiply theresult by 1.210. Globulin 1.3 - 3.2 gm/dL High No Sep 26 [Mass/vol informati 2017 6:18 ume] in on in AM Serum source data Glucose 74 - 106 mg/dL Normal No Sep 26 [Mass/vol informati 2017 6:18 ume] in on in AM Serum or source Plasma data Potassium 3.5 - 5.1 mmoL/L Normal No Sep 26 informati 2017 6:18 [Moles/vo on in AM lume] in source Serum or data Plasma Sodium 136 - 145 mmoL/L Low No Sep 26 [Moles/vo informati 2017 6:18 lume] in on in AM Serum or source Plasma data Aspartate 15 - 37 U/L No No Sep 26 informati informati 2017 6:18 aminotran on in on in AM sferase source source [Enzymati data data c activity/ volume] in Serum or Plasma Alanine 12 - 78 U/L Normal No Sep 26 aminotran informati 2017 6:18 sferase on in AM [Enzymati source c data activity/ volume] in Serum or Plasma Protein 6.4 - 8.2 gm/dL Normal No Sep 26 [Mass/vol informati 2017 6:18 ume] in on in AM Serum or source Plasma data Comprehensive metabolic 2000 panel in Serum or Plasma Observa Value Referen Units Interpr Notes Date tion ce etation Range Albumin/G 1.1 - 1.8 No Low No Sep 25 lobulin informati informati 2017 3:40 [Mass on in on in PM ratio] in source source Serum or data data Plasma Albumin 3.4 - 5.0 gm/dL Low No Sep 25 [Mass/vol informati 2017 3:40 ume] in on in PM Serum or source Plasma data Alkaline 46 - 116 U/L Normal No Sep 25 phosphata informati 2017 3:40 se on in PM [Enzymati source c data activity/ volume] in Serum or Plasma Bilirubin 0.2 - 1.0 mg/dL Normal No Sep 25 .total informati 2017 3:40 [Mass/vol on in PM ume] in source Serum or data Plasma Urea 7 - 18 mg/dL High No Sep 25 nitrogen informati 2017 3:40 [Mass/vol on in PM ume] in source Serum or data Plasma Calcium 8.5 - mg/dL Normal No Sep 25 [Mass/vol 10.1 informati 2017 3:40 ume] in on in PM Serum or source Plasma data Chloride 98 - 107 mmoL/L Low No Sep 25 [Moles/vo informati 2017 3:40 lume] in on in PM Serum or source Plasma data Carbon 21.0 - mmoL/L Normal No Sep 25 dioxide, 32.0 informati 2017 3:40 total on in PM [Moles/vo source lume] in data Serum or Plasma Creatinin 0.55 - mg/dL High No Sep 25 e 1.02 informati 2016 3:40 [Mass/vol on in PM ume] in source Serum or data Plasma Creatinin 50 - 200 ML/MIN Low No Sep 25 e renal informati 2016 3:40 clearance on in PM source predicted data by Cockcroft -Gault formula Estimated 59- ML/MIN Low alert REFERENCE Sep 25 RANGE: 2016 3:40 glomerula >60 PM r ML/MIN/1. filtratio 73 SQUARE n rate METERSIf (GF this patient is -A merican, then multiply theresult by 1.210. Globulin 1.3 - 3.2 gm/dL High No Sep 25 [Mass/vol informati 2016 3:40 ume] in on in PM Serum source data Glucose 74 - 106 mg/dL High No Sep 25 [Mass/vol informati 2016 3:40 ume] in on in PM Serum or source Plasma data Potassium 3.5 - 5.1 mmoL/L Normal No Sep 25 informati 2016 3:40 [Moles/vo on in PM lume] in source Serum or data Plasma Sodium 136 - 145 mmoL/L Low No Sep 25 [Moles/vo informati 2016 3:40 lume] in on in PM Serum or source Plasma data Aspartate 15 - 37 U/L Normal No Sep 25 informati 2016 3:40 aminotran on in PM sferase source [Enzymati data c activity/ volume] in Serum or Plasma Alanine 12 - 78 U/L Normal No Sep 25 aminotran informati 2016 3:40 sferase on in PM [Enzymati source c data activity/ volume] in Serum or Plasma Protein 6.4 - 8.2 gm/dL Normal No Sep 25 [Mass/vol informati 2016 3:40 ume] in on in PM Serum or source Plasma data CBC W Auto Differential panel in Blood Observa Value Referen Units Interpr Notes Date tion ce etation Range Basophils 0 - 0.2 K/MM3 Normal No Sep 25 informati 2016 3:40 [#/volume on in PM ] in source Blood by data Automated count Basophils 0.1 - 2.0 % Normal No Sep 25 /100 informati 2016 3:40 leukocyte on in PM s in source Blood by data Automated count Eosinophi 0.0 - 0.4 K/mm3 Normal No Sep 25 ls informati 2016 3:40 [#/volume on in PM ] in source Blood by data Automated count Eosinophi 0.1 - % Normal No Sep 25 ls/100 12.0 informati 2016 3:40 leukocyte on in PM s in source Blood by data Automated count Granulocy 1.8 - 7.8 K/mm3 High No Sep 25 stevie informati 2016 3:40 [#/volume on in PM ] in source Blood by data Automated count Granulocy 37.0 - % Normal No Sep 25 stevie/100 80.0 informati 2016 3:40 leukocyte on in PM s in source Blood by data Automated count Hematocri 37.0 - % Low No Sep 25 t [Volume 47.0 informati 2016 3:40 on in PM Fraction] source of Blood data Hemoglobi 12.2 - g/dL Low No Sep 25 n 16.2 informati 2016 3:40 [Mass/vol on in PM ume] in source Blood data Lymphocyt 0.7 - 4.5 K/mm3 Normal No Sep 25 es informati 2016 3:40 [#/volume on in PM ] in source Unspecifi data ed specimen by Automated count Lymphocyt 10 - 50.0 % Normal No Sep 25 es informati 2016 3:40 [#/volume on in PM ] in source Unspecifi data ed specimen by Automated count Erythrocy 27 - 31.2 pg Normal No Sep 25 te mean informati 2016 3:40 corpuscul on in PM ar source hemoglobi data n [Entitic mass] Erythrocy 31.8 - g/dl Normal No Sep 25 te mean 35.4 informati 2016 3:40 corpuscul on in PM ar source hemoglobi data n concentra tion [Mass/vol ume] by Automated count Erythrocy 82.2 - fl Normal No Sep 25 te mean 97.8 informati 2016 3:40 corpuscul on in PM ar volume source [Entitic data volume] by Automated count Monocytes 0.1 - 1.0 K/mm3 High No Sep 25 informati 2016 3:40 [#/volume on in PM ] in source Blood by data Automated count Monocytes 1.7 - 9.3 % Normal No Sep 25 /100 informati 2016 3:40 leukocyte on in PM s in source Blood by data Automated count Platelet 7.4 - fl Normal No Sep 25 mean 10.4 informati 2017 3:40 volume on in PM [Entitic source volume] data in Blood by Automated count Platelets 142 - 424 K/mm3 High No Sep 25 informati 2017 3:40 [#/volume on in PM ] in source Blood data Erythrocy 4.2 - 5.4 M/mm3 Low No Sep 25 stevie informati 2016 3:40 [#/volume on in PM ] in source Amniotic data fluid Erythrocy 11.5 - % Normal No Sep 25 te 17.5 informati 2017 3:40 distribut on in PM ion width source [Entitic data volume] by Automated count Leukocyte 4.8 - K/MM3 High No Sep 25 s 10.8 alert informati 2017 3:40 [#/volume on in PM ] in source Blood data Differential panel, method unspecified - Observa Value Referen Units Interpr Notes Date tion ce etation Range Neutrophi 0 - 8 % Normal No Sep 25 ls.band informati 2017 3:40 form/100 on in PM leukocyte source s in data Blood by Automated count LYMPH 9 10 - 50 % Low No Sep 25 informa 2017 tion in 3:40 PM source data Monocytes 2 - 9 % Normal No Sep 25 /100 informati 2016 3:40 leukocyte on in PM s in source Blood by data Automated count Platele MOD No No No No Sep 25 ts INCREAS informa informa informa informa 2016 [Presen E tion in tion in tion in tion in 3:40 PM ce] in source source source source Blood data data data data by Light microsc opy Neutrophi 42 - 76 % High No Sep 25 ls informati 2016 3:40 [#/volume on in PM ] in source Blood by data Automated count Cells No #CELLS No No Sep 25 Counted informati informati informati 2016 3:40 Total [#] on in on in on in PM in Blood source source source data data data
--- OUTSIDE RECORDS SUMMARY | 2017-04-10 02:55 | External Medical Summary Rpt ---
[...] tion in tion in tion in 11:20 curly source source source AM [Presen data data [...] - 7.8 K/mm3 High No Mar 2 stevie inform2016 [#/volume on in 10:22 AM ] [...]
== END 2017-03-31 11:51 | disposition home or self-care (01) ==
LOC: ER 10:02
PROVIDERS: General Practice
DX: R59.0 Localized enlarged lymph nodes (principal); E88.09 Other disorders of plasma-protein metabolism, not elsewhere classified; E11.65 Type 2 diabetes mellitus with hyperglycemia; Z79.4 Long term (current) use of insulin; F17.210 Nicotine dependence, cigarettes, uncomplicated; Z79.82 Long term (current) use of aspirin; I10 Essential (primary) hypertension

== ENCOUNTER 2017-04-03 10:14 | Inpatient (IN) | payer MEDICARE ==
[~2017-04-03] VITALS: Ht 162.6 cm; Wt 85.8 kg
[~2017-04-03 10:14] MED LIST changes: +Oxycodone5 MG NG; +ZOFRAN ODT4 MG PO
[2017-04-03 10:17] VITALS: BP 124/53
--- NOTE | 2017-04-03 10:25 | Emergency Room Report ---
History of Present Illness Time Seen by MD Rm Presenting Problem in Triage Pt arrived: Presenting Problem: Onset of symptoms date/time:/ or onset unknown for: Treatment Prior to Arrival: ADMINISTRATIVE RESIDENT Provided by: Sepsis Risk Assessment: Temp: B/P: MAP: Pulse: Resp: Recent fever? Clinical Suspician of Infection? Mental Status: Sepsis Risk: Have you (or family members/close friends) recently traveled outside the [place]? If Yes, where/when: Have you had exposure to infectious disease within the past month? TB? Other? Specify: 76 years old white female with multiple medical problems and noncompliance issue. I have seen her 10 days ago for the same complaint and she was admitted and she signed herself this medical advice next morning over her pain medication. since then she has been seen in the ED for back pain and was released. This morning she is brought by her daughter because of her initial complain daily diarrhea 10-20 times daily for the past 3 days. vomited once a day. Her caregiver is unable to handle any more diarrhea. The patient denies having chest pain and shortness of breath abdominal pain and she has chronic back pain. She denies having fever or chills. She is sitting in the bed and no cardiopulmonary distress. Her daughter last antidiabetic agent was given an hour ago. I asked for a sample for stool panel because it was not done last admission when she signed AGAINST MEDICAL ADVICE. I reviewed her records and she was found to have this gallbladder sludge for which she is scheduled for an outpatient ultrasound, she has axillary lymph nodes and she scheduled for myelogram. Source patient, RN notes reviewed, family, old records Exam Limitations no limitations ALLERGIES Coded Allergies: venom-honey bee (bee venom (honey bee)) (Severe, S-DIFF. BREATHING 03/28/17) ASPARTAME (FOOD) (From ASPARTAME (FOOD/DRUG)) (Intermediate, I-HIVES 03/28/17) aspartame (From ASPARTAME (FOOD/DRUG)) (Intermediate, I-HIVES 03/28/17) adhesive tape (03/28/17) Home Medications Active Scripts OXYCODONE HCL (Oxycodone) 5 MG NG Q6H #18 TAB Prov: 03/31/17 Ondansetron (Zofran 4MG Odt) 4 MG PO Q6HP PRN NAUSEA AND VOMITING #10 TAB Prov: 03/28/17 Reported Medications Simvastatin 1 TAB PO DAILY Pantoprazole Sodium (Protonix 40MG TAB) 1 TAB PO DAILY ASPIRIN (Aspirin 325MG) 1 TAB PO DAILY Diazepam (Valium 10MG) 10 MG PO TIDP Gabapentin (Gabapentin 300MG) 300 MG PO TID HYDROCODONE/ACETAMINOPHEN ([place] 5-325 Tablet) 1 TAB PO Q4-6HP PRN PAIN INSULIN GLARGINE (Lantus 3ML Solostar Pen) 15 UNITS SC DAILY INSULIN ASPART (Novolog) 15 UNITS SC AC Lisinopril (Lisinopril 40MG) 40 MG PO DAILY CLOPIDOGREL BISULFATE (Clopidogrel 75MG) 75 MG PO DAILY History Medical History General CAD? No Angina: Yes [place]: No Hypertension? Yes Hyperlipidemia? Yes CHF? No DVT? No PE? No COPD? No Asthma? No Anemia? No GERD? No Gastric ulcers? No GI Bleed? No Hernia? No Thyroid Problems? No Hypothyroidism? No CVA? Yes Seizures? 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 Yes Renal Insuffiency? No End Stage Renal Disease? No UTI? No Stones? No BPH? No GB Disease: No Nephritic Syndrome? No Asplenia? No Hepatitis? No Sickle Cell Disease? No Arthritis? Yes Migraines? Yes Cataracts? No Glaucoma? No MRSA? No HIV? No TB? No Anxiety? Yes Depression? Yes Cancer? Yes Site: COLON CANCER More? Yes Additional hx: Diabetic neuropathy BELLS PALSY Immunization Hx DT/Tetanus > 10 Years Ago Flu 03/25/17 Pneumonia 03/25/17 Surgical Hx Previous Surgery?Y L KNEE BACK SURGERY Colon Procedures HYSTERECTOMY Family History Family Hx Diabetes Yes CAD No Hypertension Yes Hyperlipidemia Yes Cancer Yes TB No Social History Smoking Hx Packs/day < 1 Pack Alcohol Alcohol: No Review of Systems All Other Systems Reviewed and Negative Constitutional no symptoms reported Eyes no symptoms reported ENT no symptoms reported. Respiratory no symptoms reported Cardiovascular no symptoms reported Gastrointestinal see HPI, diarrhea, vomiting Genitourinary no symptoms reported. Musculoskeletal no symptoms reported Skin no symptoms reported Psychiatric/Neurological no symptoms reported Physical Exam Vital Signs Vital Signs Date Time Temp Pulse Resp B/P Pulse O2 O2 Flow FiO2 Ox Delivery Rate 04/03 1037 85 111/58 04/03 1037 91 95/57 04/03 1037 86 124/53 04/03 1017 98.4 88 18 124/53 96 The patient is sitting up in bed in no cardiopulmonary distress. (Elicia CLARKE,[facility]) - WBC >12,000 or <4,000 or 10% bands? 2 or more SIRS Criteria Met? B/P: MAP: Creatinine >2.0? UA output<0.5ml/kg/hr for 2 hrs? Platelet count >100,000? Lactate >2.0mmol/1? INR >1.2 or PTT > than 60 sec? Evidence of Organ Dysfunction? Provider documented clinical suspician of infection? Sepsis Criteria Count: Sepsis Risk: General Appearance normal appearance, WD/WN Eye Exam - bilateral eye normal exam, bilateral eye PERRL, bilateral eye EOMI Ear, Nose, Throat hearing grossly normal, normal ENT inspection Neck normal inspection, non-tender, supple, full range of motion Respiratory Status Yes: trachea midline, chest symmetrical, non tender chest. No: respiratory distress. Lung Sounds bilateral: normal breath sounds, lungs clear. Cardiovascular normal exam, regular rate/rhythm, no peripheral edema, no gallop, no JVD, no murmur, no rub, normal peripheral pulses Gastrointestinal normal bowel sounds, normal exam, non tender, soft, no organomegaly, no guarding, no rebound, the abdomen is obese soft nontender no guarding no rigidity Back normal inspection, no vertebral tenderness Extremities non-tender, normal range of motion, swelling, venous stasis with 1+ bilateral edema Neurologic alert, figurine maker II-XII nml as tested, normal exam, oriented x 3 Reflexes Reflexes normal Yes Mental status normal mood/affect Skin intact, normal color, warm/dry Medical Decision Making LABS/Meds/Orders Pt receiving controlled substance in ED? No Results/Orders Laboratory Tests 04/03/17 1000: Sodium 134 L, Potassium 3.1 L, Chloride 96 L, Carbon Dioxide 25, BUN 44 H, Creatinine 3.4 H, Estimated Creat Clear 19 L, Estimated GFR (MDRD) 13 *L, Glucose 136 H, Calcium 9.2, Magnesium 1.8, Total Bilirubin 0.2, AST 36, ALT 40, Alkaline Phosphatase 107, Troponin I 0.02, Total Protein 7.8, Albumin 3.1 L, Globulin 4.7 H, Albumin/Globulin Ratio 0.7 L, Lipase 52 L, WBC 13.7 H, RBC 3.75 L, Hgb 11.0 L, Hct 33.2 L, MCV 88.4, RDW 15.3, Plt Count 631 H, MPV 7.8 , Gran % 74.6, Gran # 10.2 H, Lymphocytes % 17.3, Monocytes % 5.1, Eosinophils % 2.4, Basophils % 0.5, Lymphocytes # 2.4, Monocytes # 0.7, Eosinophils # 0.3, Basophils # 0.1, PUBS MCHC 33.3, MCH 29.5, Acetone Level NONE DETECTED Current Medication Orders Sig/Brandy Start time Last Medication Dose Route Stop Time Status Admin Famotidine 20 MG ONCE ONE 04/03 1045 DC 04/03 IV 04/03 1046 1059 Ondansetron HCl 4 MG ONCE ONE 04/03 1045 DC 04/03 IV 04/03 1046 1059 Sodium Chloride 8 ML ONCE ONE 04/03 1045 DC 04/03 IV 04/03 1046 1100 Famotidine 0 .STK-MED ONE 04/03 1035 DC IV Ondansetron HCl 0 .STK-MED ONE 04/03 1034 DC .ROUTE Sodium Chloride 1,000 ML .STK-MED ONE 04/03 1031 DC IV Sodium Chloride 1,000 ML .Q4H 04/03 1030 AC 04/03 IV 04/03 1429 1033 Sodium Chloride 10 ML PRN PRN 04/03 1030 AC IV 04/04 1028 Orders Procedure Date/time Status ORTHOSTATIC B/P 04/03 1036 Active URINALYSIS/COMPLETE 04/03 1034 Active Acetone, Serum 04/03 1034 Complete ABD ACUTE(MUL VIEWS) 04/03 1027 Active TROPONIN I 04/03 1027 Complete MAGNESIUM 04/03 1027 Complete LIPASE 04/03 1027 Complete DIARRHEA PANEL, PCR 04/03 1027 Active CBC WITH AUTO DIFF 04/03 1027 Complete CHEM 12 PROFILE 04/03 1027 Complete XRAY/CT/US XRAY/CT/US XRAY chest, abdomen XR interpretation by reviewed by me Xray Results no infiltrates, normal small bowel pattern fluid level, and no acute finding Departure Departure Time of Disposition 1108 Disposition Still a Patient Clinical Impression Primary Impression: Intractable diarrhea Secondary Impressions: Acute renal failure, Breast lump in female, Dehydration, Gall bladder disease, Mediastinal lymphadenopathy Condition STABLE Referrals Anand Lee MD (Family) Additional Instructions I discussed with her daughter that the patient's signing AGAINST MEDICAL ADVICE works against her well being, she verbalized understanding. 11:10 I reviewed her X rays, and Labs from today and called Dr Lee for admission. Dr Lee admitted her for IVF , he is aware of her other radiologic abnormalities and will continue the outpatient work up plan. Dr. Rubi Discharge Counseling Counseled pt/family regarding diagnosis, test results, home care, follow up needs ED Critical Care Critical Care No If Critical Care minutes are documented, the time involved in the performance of seperately reportable procedures was not counted toward critical care time documented. I directly delivered medical care to this critically ill and/or injured patient. Timely evaluation and treatment was necessary to address the significant organ system(s) dysfunction present in this patient. at 1121
[2017-04-03 10:30] LABS: LYMPH # 2.4 K/mm3 (0.7-4.5); LYMPH % 17.3 % (10-50.0)
[2017-04-03 11:21] LABS: AEROMONAS NOT DETECTED (NOT DETECTE); E COLI O157 NOT DETECTED (NOT DETECTE); ENTEROAGGREGATIVE E COLI NOT DETECTED (NOT DETECTE); ENTEROPATHOGENIC E COLI NOT DETECTED (NOT DETECTE); ENTEROTOXIGENIC E COLI NOT DETECTED (NOT DETECTE); SHIGA-LIKE TOXIN PROD. E COLI NOT DETECTED (NOT DETECTE); SHIGELLA/ENTEROINVASIVE E COLI NOT DETECTED (NOT DETECTE); VIBRIO CHOLERAE NOT DETECTED (NOT DETECTE)
[2017-04-03 11:22] LABS: ASTROVIRUS NOT DETECTED (NOT DETECTE); CYCLOSPORA CAYETANENSIS NOT DETECTED (NOT DETECTE); NOROVIRUS NOT DETECTED (NOT DETECTE); SAPOVIRUS NOT DETECTED (NOT DETECTE)
--- NOTE | 2017-04-03 11:50 | RADIOLOGY REPORT PS360 ---
ABD ACUTE(MUL VIEWS) COMPARISON: PA and lateral chest 03/28/2017 HISTORY: Vomiting and diarrhea TECHNIQUE: PA chest, KUB and upright abdomen FINDINGS: The lung medrano are well expanded and appear clear of infiltrate. The cardiac silhouette and vascularity are normal and is no pleural fluid. There is a left perihilar tiny nodule left upper lobe nodule both likely partially calcified granulomas. Abdominal films show moderate levoscoliotic curvature of the lumbar spine. There is multilevel degenerative changes noted. There is arteriosclerotic calcification of the abdominal aorta without definite aneurysm. There is mild gaseous dilatation of the transverse colon. Is no significant small bowel gas. There is no free air. IMPRESSION: 1. Nonacute chest findings. 2. Essentially nondiagnostic bowel gas pattern
--- NOTE | 2017-04-03 12:11 | HISTORY AND PHYSICAL REPORT ---
Demographics: Admit date: 04/03/17 Chief complaint: Diarrhea PRIMARY DIAGNOSIS: diarrhea, suspected infectious Allergies: Coded Allergies: venom-honey bee (bee venom (honey bee)) (Severe, S-DIFF. BREATHING 03/28/17) ASPARTAME (FOOD) (From ASPARTAME (FOOD/DRUG)) (Intermediate, I-HIVES 03/28/17) aspartame (From ASPARTAME (FOOD/DRUG)) (Intermediate, I-HIVES 03/28/17) adhesive tape (03/28/17) History of present illness: History of present illness: 76-year-old female presented to the emergency department with 48 hours of diarrhea and inability to control her bowel movements. She is accompanied by her daughter who reports that early Friday morning the patient began having diarrhea. She estimates that Friday and Friday the patient had more than 10 bowel movements each day. Bowel movements are always triggered by eating but patient had become incontinent of stool. She began taking antidiarrheal agents without improvement. Patient had 2 large bowel movements this morning both of which occurred outside of the bathroom so patient was brought to the emergency department. Daughter reports patient's appetite is actually been better in the last 2 days as opposed to the prior week. In the emergency Department patient's workup was significant for acute kidney injury with elevated creatinine greater than 3. Patient been in the emergency Department 72 hours prior for a separate complaint and creatinine at that point was 1.4. Patient has been admitted for IV fluid hydration, further stool testing and monitoring. Past medical history: Family HX Family Hx Insignificant No Diabetes Yes CAD No Hypertension Yes Hyperlipidemia Yes Cancer Yes TB No Immunization HX DT/Tetanus > 10 Years Ago Flu 03/25/17 Pneumonia 03/25/17 General CAD? No Angina: Yes [place]: No Hypertension? Yes Hyperlipidemia? Yes CHF? No DVT? No PE? No COPD? No Asthma? No Anemia? No GERD? No Gastric ulcers? No GI Bleed? No Hernia? No Thyroid Problems? No Hypothyroidism? No CVA? Yes Seizures? 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 Yes Renal Insuffiency? No UTI? No Stones? No BPH? No GB Disease: No Nephritic Syndrome? No Asplenia? No Hepatitis? No Sickle Cell Disease? No Arthritis? Yes Migraines? Yes Cataracts? No Glaucoma? No MRSA? No HIV? No TB? No Anxiety? Yes Depression? Yes Cancer? Yes Site: COLON CANCER More? Yes Additional hx: Diabetic neuropathy BELLS PALSY Past Surgical HX Previous Surgery?Y L KNEE BACK SURGERY colectomy secondary to malignancy HYSTERECTOMY Current home meds: Active Scripts OXYCODONE HCL (Oxycodone) 5 MG NG Q6H #18 TAB Prov: 03/31/17 Ondansetron (Zofran 4MG Odt) 4 MG PO Q6HP PRN NAUSEA AND VOMITING #10 TAB Prov: 03/28/17 Reported Medications Simvastatin 1 TAB PO DAILY Pantoprazole Sodium (Protonix 40MG TAB) 1 TAB PO DAILY ASPIRIN (Aspirin 325MG) 1 TAB PO DAILY Diazepam (Valium 10MG) 10 MG PO TIDP Gabapentin (Gabapentin 300MG) 300 MG PO TID HYDROCODONE/ACETAMINOPHEN ([place] 5-325 Tablet) 1 TAB PO Q4-6HP PRN PAIN INSULIN GLARGINE (Lantus 3ML Solostar Pen) 15 UNITS SC DAILY INSULIN ASPART (Novolog) 15 UNITS SC AC Lisinopril (Lisinopril 40MG) 40 MG PO DAILY CLOPIDOGREL BISULFATE (Clopidogrel 75MG) 75 MG PO DAILY Social Hx: Smoking HX Tobacco Yes Type Cigarettes Packs/day < 1 PACK Alcohol Alcohol: No Hx of Drug Use Drug Use? No Patien't marital status is Patient's support system is fair Review of systems: Constitutional No: chills, diaphoresis, fever, malaise. Respiratory no symptoms reported. Cardiovascular no symptoms reported Gastrointestinal/Abdominal see HPI Genitourinary no symptoms reported. Musculoskeletal muscle pain, other (back pain). Neurological Yes: no symptoms reported. Exam: Lab data for last 24 hours: Laboratory Tests 04/03/17 1000: Sodium 134 L, Potassium 3.1 L, Chloride 96 L, Carbon Dioxide 25, BUN 44 H, Creatinine 3.4 H, Estimated Creat Clear 19 L, Estimated GFR (MDRD) 13 *L, Glucose 136 H, Calcium 9.2, Magnesium 1.8, Total Bilirubin 0.2, AST 36, ALT 40, Alkaline Phosphatase 107, Troponin I 0.02, Total Protein 7.8, Albumin 3.1 L, Globulin 4.7 H, Albumin/Globulin Ratio 0.7 L, Lipase 52 L, WBC 13.7 H, RBC 3.75 L, Hgb 11.0 L, Hct 33.2 L, MCV 88.4, RDW 15.3, Plt Count 631 H, MPV 7.8 , Gran % 74.6, Gran # 10.2 H, Lymphocytes % 17.3, Monocytes % 5.1, Eosinophils % 2.4, Basophils % 0.5, Lymphocytes # 2.4, Monocytes # 0.7, Eosinophils # 0.3, Basophils # 0.1, PUBS MCHC 33.3, MCH 29.5, Acetone Level NONE DETECTED Admission vital signs: 1ST Vital Signs Result Date Time Pulse Ox 96 04/03 1017 B/P 124/53 04/03 101 Temp 98.4 04/03 1017 Pulse 88 04/03 101 Resp 18 04/03 101 Additional information: Patient is awake and alert. She does not appear to be in any distress. Compared to 48 hours ago the patient looks more awake and alert than she did at an office visit. Oropharynx is moist. Neck is without any lymphadenopathy. Lungs are clear to auscultation. Heart has a regular rate and rhythm. Abdomen is soft and nontender with hyperactive bowel sounds. Genitourinary exam does not reveal any erythema, discharge. There is no pedal edema. Plan: Problem List 1. Diarrhea 2. Acute kidney injury 3. Diabetes mellitus 4. History of stroke Plan: Diarrhea panel has been ordered and we will await result IV fluids of normal saline at 100 ML's an hour with 20 mEq per liter of potassium added Home medications Low residue diabetic diet
[2017-04-03 12:32] VITALS: BP 86/44
[2017-04-03 13:57] LABS: URINE BILIRUBIN - DIPSTICK NEGATIVE (NEG); URINE BLOOD NEGATIVE (NEG)
[2017-04-03] MEDS ORDERED: CARVEDILOL3.125 M1 PO (15:01)
[2017-04-03] MEDS ORDERED: CARVEDILOL3.125 MG PO (15:02)
[2017-04-03 15:25] VITALS: BP 108/43
[2017-04-03 19:31] VITALS: BP 118/53
[2017-04-03 20:00] VITALS: BP 118/53
[2017-04-04 03:57] VITALS: BP 109/62
--- NOTE | 2017-04-04 07:32 | PHARMACY CLINIC NOTE ---
Patient Demographics Patient Demographics Admission date: 04/03/17 Date: 04/04/17 Time: 0732 Allergies Coded Allergies: venom-honey bee (bee venom (honey bee)) (Severe, S-DIFF. BREATHING 03/28/17) ASPARTAME (FOOD) (From ASPARTAME (FOOD/DRUG)) (Intermediate, I-HIVES 03/28/17) aspartame (From ASPARTAME (FOOD/DRUG)) (Intermediate, I-HIVES 03/28/17) adhesive tape (03/28/17) HEIGHT- FT: 5 IN: 4.00 K.843 VTE General Information Labs: Laboratory Tests 04/03 1000 Hematology Hgb (12.2 - 16.2 g/dL) 11.0 L Hct (37.0 - 47.0 %) 33.2 L Plt Count (142 - 424 K/mm3) 631 H Disclaimer The following section includes nursing documentation that has been pulled in for pharmacy review. Patient's VTE score: 2 Patient's VTE Risk: VERY LOW RISK Clinical trial participant? No VTE prophylaxis NQF [id number] VTE prophylaxis ordered? Yes Type of prophylaxis/treatment: GATITO at 0732
[2017-04-04 07:33] LABS: LYMPH % 17.5 % (10-50.0)
--- NOTE | 2017-04-04 07:33 | ACUTE CARE PROGRESS NOTE (QUA) ---
Progress Notes Subjective Date 04/04/17 Time 0732 Note Patient and her daughter report 2 stools yesterday after admission. Stool studies were negative for viral, bacterial, parasitic infection. Patient ate supper yesterday evening but does not recall whether it triggered a bowel movement. Patient is awake and alert. Lungs are clear. Heart has regular rate and rhythm. Abdomen is soft with active bowel sounds. There is mild RIGHT lower quadrant tenderness to palpation. Objective Findings Last VS-Temp:98.7 B/P:109/62 Pulse:89 Resp:16 SaO2:93 ROOM AIR Last weight lbs:189 oz:4 K.843 Method:Bed Scales Laboratory Tests 04/04/17 0606: POC Glucose 85 04/03/17 2235: POC Glucose 131 H 04/03/17 1643: POC Glucose 139 H 04/03/17 1345: Urine Color YELLOW, Urine Appearance CLEAR, Urine pH 6.0, Ur Specific Quinn 1.010, Urine Protein NEGATIVE, Urine Ketones NEGATIVE, Urine Blood NEGATIVE, Urine Nitrate NEGATIVE, Urine Bilirubin NEGATIVE, Urine Urobilinogen 0.2, Ur Leukocyte Esterase NEGATIVE, Urine RBC OCC, Urine WBC OCC, Ur Squamous Epith Cells 3-5, Urine Bacteria TRACE, Urine Glucose NEGATIVE 04/03/17 1120: Stl Aeromonas (PCR) NOT DETECTED, Stl Cyclospora species NOT DETECTED, Stool Rotavirus (PCR) NOT DETECTED, Stool Astrovirus (PCR) NOT DETECTED, Stool Campylobacter PCR NOT DETECTED, Stool Cryptosporidium PCR NOT DETECTED, Stl E. histolytica PCR NOT DETECTED, Stool Giardia Lamblia PCR NOT DETECTED, Stl P. shigelloides PCR NOT DETECTED, Stool Sapovirus (PCR) NOT DETECTED, Stool Vibrio (PCR) NOT DETECTED, Stl Vibrio cholerae PCR NOT DETECTED, Stl Norovirus GI/GII PCR NOT DETECTED, Adenovirus (PCR) NOT DETECTED, C. difficile Tox (PCR) NOT DETECTED, E. coli (PCR) NOT DETECTED, Salmonella (PCR) NOT DETECTED, Yersinia ( PCR) NOT DETECTED 04/03/17 1000: Sodium 134 L, Potassium 3.1 L, Chloride 96 L, Carbon Dioxide 25, BUN 44 H, Creatinine 3.4 H, Estimated Creat Clear 19 L, Estimated GFR (MDRD) 13 *L, Glucose 136 H, Calcium 9.2, Magnesium 1.8, Total Bilirubin 0.2, AST 36, ALT 40, Alkaline Phosphatase 107, Troponin I 0.02, Total Protein 7.8, Albumin 3.1 L, Globulin 4.7 H, Albumin/Globulin Ratio 0.7 L, Lipase 52 L, WBC 13.7 H, RBC 3.75 L, Hgb 11.0 L, Hct 33.2 L, MCV 88.4, RDW 15.3, Plt Count 631 H, MPV 7.8 , Gran % 74.6, Gran # 10.2 H, Lymphocytes % 17.3, Monocytes % 5.1, Eosinophils % 2.4, Basophils % 0.5, Lymphocytes # 2.4, Monocytes # 0.7, Eosinophils # 0.3, Basophils # 0.1, PUBS MCHC 33.3, MCH 29.5, Acetone Level NONE DETECTED Assessment/Plan Problem List 1. Diarrhea 2. Acute kidney injury 3. Diabetes mellitus 4. History of stroke Patient condition Stable Plan: continue current care, await labs, PT consult This inpt stay is expected to cross 2 MNs from start of care Yes at 0731
[2017-04-04] MEDS ORDERED: GABAPENTIN800 MG PO (07:35)
[2017-04-04 07:37] VITALS: BP 150/53
[2017-04-04 07:42] LABS: HEMOGLOBIN 9.2 g/dL (12.2-16.2)
[2017-04-04 15:58] VITALS: BP 138/70
[2017-04-04 19:20] VITALS: BP 155/75
[2017-04-04 19:35] VITALS: BP 155/75
[2017-04-05 03:42] VITALS: BP 93/57
--- NOTE | 2017-04-05 07:49 | ACUTE CARE PROGRESS NOTE (QUA) ---
Progress Notes Subjective Date 04/05/17 Time 0748 Note Patient reports 2 bowel movements yesterday. Appetite is fair although she admits she doesn't really like the food. She denies pain. When I entered the room the patient is pacing about the room using her rolling walker. Lungs are clear. Heart has a regular rate and rhythm. Abdomen is soft and nontender. Discharged to home. Follow-up in my office on Friday as previously scheduled Assessment/Plan Problem List 1. Diarrhea 2. Acute kidney injury 3. Diabetes mellitus 4. History of stroke This inpt stay is expected to cross 2 MNs from start of care Yes at 0749
--- NOTE | 2017-04-05 07:51 | Discharge Summary ---
Demographics Admit date: 04/03/17 Discharge date: 04/05/17 Discharge diagnoses Problem List 1. Diarrhea 2. Acute kidney injury 3. Diabetes mellitus 4. History of stroke History of present illness History of present illness 76-year-old female presented to the emergency department with 48 hours of diarrhea and inability to control her bowel movements. She is accompanied by her daughter who reports that early Friday morning the patient began having diarrhea. She estimates that Friday and Friday the patient had more than 10 bowel movements each day. Bowel movements are always triggered by eating but patient had become incontinent of stool. She began taking antidiarrheal agents without improvement. Patient had 2 large bowel movements this morning both of which occurred outside of the bathroom so patient was brought to the emergency department. Daughter reports patient's appetite is actually been better in the last 2 days as opposed to the prior week. In the emergency Department patient's workup was significant for acute kidney injury with elevated creatinine greater than 3. Patient been in the emergency Department 72 hours prior for a separate complaint and creatinine at that point was 1.4. Patient has been admitted for IV fluid hydration, further stool testing and monitoring. Patient was admitted and started on IV fluids. After admission frequency of bowel movements decreased. Diarrhea panel was negative for infectious cause of diarrhea. Patient was started on Questran 4 times daily for her diarrhea. Patient's appetite remained poor but she claimed she did not like the hospital food. With IV fluids her acute kidney injury was reversed. Her DICK inhibitor was held while she was hospitalized. On the seventh the patient was doing much better and ambulating without difficulty. She had had 2 bowel movements in the preceding 12 hours. She had pulled out her IV and would not allow to be replaced. Patient was discharged home. Patient will follow-up in my office on Friday as previously scheduled. Medications Medications: Discharge meds are as noted. Follow up Follow up in office in: as scheduled with: Anand Lee MD at 0751
[2017-04-05 08:22] VITALS: BP 100/62
--- OUTSIDE RECORDS SUMMARY | 2017-04-10 18:25 | External Medical Summary Rpt | Continuity of Care Document ---
Author Author Organization Address Unknown Phone Unavailable Care Team Providers Care Passenger Representative Name Role Phone , Unavailable Unavailable EMS Current Medications Section EMS Allergies and Adverse Reactions EMS Past Medical History Medications Administered Section EMS Procedures Performed EMS Vital Signs EMS Patient Care Report Narrative Dispatched emergent to the residence of a 76 year old female complaining of abdominal pain possibly due to her gallbladder. Upon arrival found female sitting upright in a chair in her kitchen. She advised that she was having severe low back that was radiating into her lower abdomen that started two days ago but has continued to get worse. She explained that she had been to [facility] two days prior for same complaint and they had told her she may be having some gallbladder issues and to follow-up with her primary doctor. She described the pain as constant and 10 of 10 on pain scale. Patient ALS assessment performed and noted. She was alert and oriented x4, and pink, warm, and dry to the touch. She has a past medical history of chronic back pain, HTN, DM, hyperlipidemia, chronic bronchitis, and high cholesterol. Medications and allergies noted. She stood up and walked outside to the stretcher and was placed onto stretcher and secured with straps in a position of comfort. She was loaded into ambulance and placed onto ECG monitor showing a sinus tach. Vitals obtained , documented, and monitored. Blood draw performed via 20g IV catheter to left AC and given to [facility] upon arrival. An IV was established 20g saline lock to left AC and flushed with 10ml of NS. Blood glucose checked off of IV catheter and read at 212. She was monitored closely and transported non-emergent to [facility] without incident per her request. No changes noted during transport and her pain remained 10 of 10 on pain scale. She was transported via ambulance because her severe low back pain did not allow her to sit up-right in any other form of transport. She was taken into [facility] ED on stretcher and she slid herself over into bed #9. Patient care and report transferred over to Ruiz Schultz RN. Run completed by LOCO Lorenzana.
--- OUTSIDE RECORDS SUMMARY | 2017-04-10 18:25 | External Medical Summary Rpt | Continuity of Care Document ---
Author Author Organization Address Unknown Phone Unavailable Care Team Providers Care Social Services Assistant Name Role Phone , Unavailable Unavailable EMS [...] She explained that she had been to [facility] ED two days prior for same complaint [...] catheter to left AC and given to [facility] upon arrival. An IV was established 20g saline lock to left AC and flushed with 10ml of NS. Blood glucose checked off of IV catheter and read at 212. She was monitored closely and transported non-emergent to [facility] ED without incident per her request. No changes noted during transport and her pain remained 10 of 10 on pain scale. She was transported via ambulance because her severe low back pain did not allow her to sit up-right in any other form of transport. She was taken into [facility] ED on stretcher and she slid herself over into bed #9. Patient care and report transferred over to Ruiz Schultz RN. Run completed by LOCO Lorenzana.
--- OUTSIDE RECORDS SUMMARY | 2017-04-10 18:25 | External Medical Summary Rpt | Continuity of Care Document ---
Author Author Organization Address Unknown Phone Unavailable Care Team Providers Care Shrinking Machine Operator Name Role Phone , Unavailable Unavailable EMS [...] She explained that she had been to [facility] ED two days prior for same complaint [...] catheter to left AC and given to [facility] upon arrival. An IV was established 20g saline lock to left AC and flushed with 10ml of NS. Blood glucose checked off of IV catheter and read at 212. She was monitored closely and transported non-emergent to [facility] ED without incident per her request. No changes noted during transport and her pain remained 10 of 10 on pain scale. She was transported via ambulance because her severe low back pain did not allow her to sit up-right in any other form of transport. She was taken into [facility] ED on stretcher and she slid herself over into bed #9. Patient care and report transferred over to Ruiz Schultz RN. Run completed by LOCO Lorenzana.
--- OUTSIDE RECORDS SUMMARY | 2017-04-10 18:25 | External Medical Summary Rpt | Continuity of Care Document ---
Author Author Organization Address Unknown Phone Unavailable Care Team Providers Care Machine Try Out Setter Name Role Phone , Unavailable Unavailable EMS [...] She explained that she had been to [facility] ED two days prior for same complaint [...] catheter to left AC and given to [facility] upon arrival. An IV was established 20g saline lock to left AC and flushed with 10ml of NS. Blood glucose checked off of IV catheter and read at 212. She was monitored closely and transported non-emergent to [facility] ED without incident per her request. No changes noted during transport and her pain remained 10 of 10 on pain scale. She was transported via ambulance because her severe low back pain did not allow her to sit up-right in any other form of transport. She was taken into [facility] ED on stretcher and she slid herself over into bed #9. Patient care and report transferred over to Ruiz Schultz RN. Run completed by LOCO Lorenzana.
--- OUTSIDE RECORDS SUMMARY | 2017-04-10 18:26 | External Medical Summary Rpt | CCD ---
Demographics Home Phone Preferred Language Cape Verdean Marital Status Unknown Congregation Affiliation Unknown Race Unknown Ethnic Group Unknown Author Author , MARIA L LISA Address Unknown Phone [email or web address] Care Team Providers Care Finish Mender Name Role Phone DORINDA GANN MD, Unavailable Unavailable DORINDA GANN MD Purpose Continuity of Care Document - 02-12-2013 through 2016 Problems Code Diagnosis DOS Provider Status 250.01 250.01 DIAB 04-01-2013 [facility], TYPE Hospital I [JUVENILE TYPE], NOT UNCNTRLD 305.1 305.1 04-01-[address] [place] [address] [facility] 401.9 401.9 04-01-2013 [place] HYPERTENSIO [facility] NOS Hospital 428.0 428.0 04-01-2013 [place] CONGESTIVE [facility] FAILURE NOS 782.3 782.3 EDEMA 04-01-2013 [facility] Allergies, Adverse Reactions, Alerts Type Allergy to [...] RO 40 -0 SE 96 3- Lo MS 10 20 ng DE 20 13 er [...] Order Detail nces retati t Range on Glucose capillary blood glucometer (04-05-2017 06:24) Glucose = 137 70-110 complet 017 mg/dl ed capilla 06:[address] Glucose capillary blood glucometer (04-04-2017 19:55) Glucose = 122 70-110 complet 017 mg/dl ed capilla 19:[address] Urinalysis dipstick W Reflex Microscopic panel in [...] SerPl-c 013 ed Cnc 19:35 BNP Bld-mCnc (10-03-2013 19:35) BNP -03-2 33 0-100 complet Bld-mCn 013 pg/mL ed c 19:35 CBC with AUTO DIFF (04-01-2013 19:35) WBC # 10-03-2 13.2 4.8-10. complet Bld 013 K/MM3 8 ed Auto 19:35 RBC # 10-03-2 4.17 4.2-5.4 complet Bld 013 M/mm3 ed Auto 19:35 Hgb 10-03-2 12.9 12.2-16 complet Bld-mCn 013 g/dL .2 ed c 19:35 Hct Fr 04-01-2 38.9 % 37.0-47 complet Bld 013 .0 ed 19:35 MCV RBC 04-01- 93.4 fl 82.2-97 complet 013 .8 ed 19:35 MCH RBC 04-01- 31.0 pg 27-31.2 complet Qn 013 ed Auto 19:35 MEAN 04-01-2 33.2 31.8-35 complet CORPUSC 013 g/dl .4 ed ULAR 19:35 HGB CONC RDW RBC 04-01-2 14.7 % 11.5-17 complet Auto 013 .5 ed 19:35 Platele 04-01-2 362 142-424 complet t Bld 013 K/mm3 ed Ql 19:35 Manual MEAN 04-01-2 7.9 fl 7.4-10. complet PLATELE 013 4 ed T 19:35 VOLUME Granulo 04-01-2 56.2 % 37.0-80 complet cytes 013 .0 ed Fr Bld 19:35 Auto LYMPH % 03-2 38.2 % 10-50.0 complet 013 ed 19:35 Monocyt 03-2 3.1 % 1.7-9.3 complet es Fr 013 ed Bld 19:35 Auto Eosinop -03-2 1.9 % 0.1-12. complet hil Fr 013 0 ed Bld 19:35 Auto Basophi 03-2 0.6 % 0.1-2.0 complet ls Fr 013 ed Bld 19:35 Auto Granulo -03-2 7.4 1.8-7.8 complet cytes # 013 K/mm3 ed Bld 19:35 Auto Lymphoc 10-03-2 5.0 0.7-4.5 complet ytes Fr 013 K/mm3 ed Bld 19:35 Auto Monocyt 10-03-2 0.4 0.1-1.0 complet es # 013 K/mm3 ed Bld 19:35 Auto Eosinop 10-03-2 0.3 0.0-0.4 complet hil # 013 K/mm3 ed Bld 19:35 Auto Basophi 10-03-2 0.1 0-0.2 complet ls # 013 K/MM3 [...] 013 mg/dL ed Bld-mCn 18:50 c BUN -16-2 13 7-18 complet Bld-mCn 013 mg/dL ed c 18:50 Creat 16-2 1.2 0.6-1.0 complet SerPl-m 013 mg/dL ed Cnc 18:50 ESTIMAT 16-2 55 50-200 complet ED 013 ML/MIN ed CREATIN 18:50 INE CLEARAN CE GFR 16-2 44 59- complet (ESTIMA 013 ML/MIN ed GATITO) 18:50 Sodium 16-2 141 136-145 complet SerPl-s 013 mmoL/L ed Cnc 18:50 Potassi 02-12-2 4.0 3.5-5.1 complet um 013 mmoL/L ed SerPl-s 18:50 Cnc Chlorid 02-12- 101 98-107 complet e 013 mmoL/L ed SerPl-s 18:50 Cnc CO2 02-12- 34 21.0-32 complet SerPl-s 013 mmoL/L .0 ed Cnc 18:50 Calcium 02-12-2 9.2 8.5-10. complet 013 mg/dL 1 ed SerPl-m 18:50 Cnc Prot 16-2 7.9 6.4-8.2 complet SerPl-m 013 gm/dL ed Cnc 18:50 Albumin 02-12-2 4.1 3.4-5.0 complet 013 gm/dL ed SerPl-m 18:50 Cnc Globuli 16-2 3.8 1.3-3.2 complet n 013 gm/dL ed Ser-mCn 18:50 c Albumin 02-12-2 1.1 UNK 1.1-1.8 complet /Glob 013 ed SerPl-m 18:50 Rto Bilirub 16-2 0.6 0.2-1.0 complet 013 mg/dL ed SerPl-m 18:50 Cnc AST 16-2 8 U/L 15-37 complet SerPl-c 013 ed Cnc 18:50 ALT 16-2 28 U/L 30-65 complet SerPl-c 013 ed Cnc 18:50 ALP 16-2 121 U/L 50-136 complet SerPl-c 013 ed Cnc 18:50 CBC with AUTO DIFF (02-12-2013 18:50) WBC # 08-16-2 16.4 4.8-10. complet Bld 013 K/MM3 8 ed Auto 18:50 RBC # 08-16-2 4.34 4.2-5.4 complet Bld 013 M/mm3 ed Auto 18:50 Hgb 08-16-2 13.1 12.2-16 complet Bld-mCn 013 g/dL .2 [...] 013 K/mm3 ed Bld 18:50 Auto Eosinop -16-2 0.2 0.0-0.4 complet hil # 013 K/mm3 ed Bld 18:50 Auto Basophi -16-2 0.1 0-0.2 complet ls # 013 K/MM3 ed Bld 18:50 Auto Encounters Encounter Start End Date Code Location Performer Type Date Emergency ALFREDITO Muniz MD (ER) 3 17:08 3 18:42 [facility] Emergency ALFREDITO GANN MD (ER) 3 19:13 3 20:38 [facility] Emergency ALFREDITO Gracia MD (ER) 3 19:05 3 20:35 [facility]
--- OUTSIDE RECORDS SUMMARY | 2017-04-10 18:26 | External Medical Summary Rpt | CCD ---
Author Author , MARIA L LISA Address Unknown Phone [email or web address] Immunization Name Date Rout CVX Reac Dose Comm Prov Is Faci e tion ent ider Refu lity Give sed n Infl 09-0 135 999 Hist D203 No D203 uenz 8-20 oric 45 45 a, 16 al High Info rmat Dose ion - Sour ce Unsp ecif ied
--- OUTSIDE RECORDS SUMMARY | 2017-04-10 18:26 | External Medical Summary Rpt | CCD ---
Demographics Home Phone Preferred Language Ethiopian Marital Status Unknown Oriental Orthodox Affiliation Unknown Race Unknown Ethnic Group Unknown Author Author , MARIA L LISA Address Unknown Phone maria Care Team Providers Care Targeting Acquisition Officer Name Role Phone DORINDA GANN MD, Unavailable Unavailable DORINDA GANN MD Purpose Continuity of Care Document - 02-12-2013 through 2016 Problems Code Diagnosis DOS Provider Status 250.01 250.01 DIAB 04-01-2013 [facility], TYPE Hospital I [JUVENILE TYPE], NOT UNCNTRLD 305.1 305.1 04-01-2013 [place] TOBACCO USE [facility] 401.9 401.9 04-01-2013 [place] HYPERTENSIO [facility] NOS Hospital 428.0 428.0 04-01-2013 [place] CONGESTIVE [facility] FAILURE NOS 782.3 782.3 EDEMA 04-01-2013 [facility] Allergies, Adverse Reactions, Alerts Type Allergy to [...] Muniz MD (ER) 3 17:08 3 18:42 [facility] Emergency ALFREDITO GANN MD (ER) 3 19:13 3 20:38 [facility] Emergency ALFREDITO Gracia MD (ER) 3 19:05 3 20:35 [facility]
--- OUTSIDE RECORDS SUMMARY | 2017-04-10 18:26 | External Medical Summary Rpt | CCD ---
Author Author , MARIA L LISA Address Unknown Phone [email or web address] Immunization Name Date Rout CVX Reac Dose Comm Prov Is Faci e tion ent ider Refu lity Give sed n Infl 09-0 135 999 Hist D203 No D203 uenz 8-20 oric 45 45 a, 16 al High Info rmat Dose ion - Sour ce Unsp ecif ied
--- OUTSIDE RECORDS SUMMARY | 2017-04-10 18:27 | External Medical Summary Rpt ---
Author Author MARIA L Chinchilla, KANDICEJOHN Production Organization MARIA L [employer] Address Unknown Phone Unavailable Results Glucose [Mass/volume] in Capillary blood by Glucometer Observa Value Referen Units Interpr Notes Date tion ce etation Range Glucose 70 - 110 mg/dl High No Oct 7 [Mass/vol informati 2017 6:24 ume] in on in AM Capillary source blood by data Glucomete [...] Plasma Creatinin 0.55 - mg/dL High No Mar 6 e 1.02 informati 2016 6:30 [Mass/vol on in AM ume] in source Serum or data Plasma Creatinin 50 - 200 ML/MIN Low No Mar 6 e renal informati 2016 6:30 clearance [...] Potassium 3.5 - 5.1 mmoL/L Normal No Apr 04 inform2016 6:30 [Moles/vo on in AM lume] in source Serum or data Plasma Sodium 136 - 145 mmoL/L Normal No Apr 04 [Moles/vo informati 2016 6:30 lume] in on in AM Serum or source Plasma data CBC W Auto Differential panel in Blood Observa Value Referen Units Interpr Notes Date tion ce etation Range Basophils 0 - 0.2 K/MM3 Normal No Apr 04 inform2016 6:30 [#/volume on in AM ] in source Blood by data Automated count Basophils 0.1 - 2.0 % Normal No Apr 04 informati 2016 6:30 leukocyte on in AM s in source Blood by data Automated count Eosinophi 0.0 - 0.4 K/mm3 Normal No Apr 04 ls informati 2016 6:30 [#/volume on in AM ] in source Blood by data Automated count Eosinophi 0.1 - % Normal No Apr 04 ls/100 12.0 informati 2016 6:30 leukocyte on in AM s in source Blood by data Automated count Granulocy 1.8 - 7.8 K/mm3 High No Apr 04 stevie informati 2016 6:30 [#/volume on in AM ] in source Blood by data Automated count Granulocy 37.0 - % Normal No Apr 04 stevie/100 80.0 informati 2016 6:30 leukocyte on in AM s in source Blood by data Automated count Hematocri 37.0 - % Low No Oct 6 t [Volume 47.0 informati 2017 6:30 on in AM Fraction] source of Blood data Hemoglobi 12.2 - g/dL Low No Mar 6 n 16.2 informati 2017 6:30 [Mass/vol on in AM [...] Erythrocy 31.8 - g/dl Low No Mar 6 te mean 35.4 informati 2017 6:30 corpuscul on in AM ar source hemoglobi data n concentra tion [Mass/vol ume] by Automated count Erythrocy 82.2 - fl Normal No Mar 6 te mean 97.8 informati 2017 6:30 corpuscul on in AM ar volume source [Entitic data volume] by Automated count Monocytes 0.1 - 1.0 K/mm3 Normal No Mar 6 informati 2017 6:30 [#/volume on in AM ] in source Blood by data Automated count Monocytes 1.7 - 9.3 % Normal No Oct 6 /100 informati 2017 6:30 leukocyte on in AM s in source Blood by data Automated count Platelet 7.4 - fl Normal No Mar 6 mean 10.4 informati 2017 6:30 volume on in AM [Entitic source volume] data in Blood by Automated count Platelets 142 - 424 K/mm3 High No Oct 6 informati 2017 6:30 [#/volume on in AM ] in source Blood data Erythrocy 4.2 - 5.4 M/mm3 Low No Oct 6 stevie informati 2017 6:30 [#/volume on in AM ] in source Amniotic data fluid Erythrocy 11.5 - % Normal No Mar 6 te 17.5 informati 2017 6:30 distribut on in AM ion width source [Entitic data volume] by Automated count Leukocyte 4.8 - K/MM3 High No Oct 6 s 10.8 informati 2017 6:30 [#/volume on in AM ] in source Blood data Glucose [Mass/volume] in Capillary blood by Glucometer Observa Value Referen Units Interpr Notes Date ti ce etation Range Glucose 70 - 110 mg/dl No No Mar 6 [Mass/vol informati informati 2016 6:06 ume] in on in on in AM Capillary source source blood by data data Glucomete r Glucose [Mass/volume] in Capillary blood by Glucometer Observa Value Referen Units Interpr Notes Date ti ce etation Range Glucose 70 - 110 mg/dl High No Oct 5 [Mass/vol informati 2016 ume] in on in 10:35 PM Capillary source blood by data Glucomete r Glucose [Mass/volume] in Capillary blood by Glucometer Observa Value Referen Units Interpr Notes Date ti ce etation Range Glucose 70 - 110 mg/dl High No Oct 5 [Mass/vol informati 2016 4:43 ume] in on in PM Capillary source blood by data Glucomete r Urinalysis dipstick W Reflex Microscopic panel in Urine Observa Value Referen Units Interpr Notes Date ti ce etation Range Appeara CLEAR CLEAR No No No Apr 03 nce of informa informa informa 2016 Urine tion in tion in tion in [...] No Apr 03 of informa informa informa 2016 Urine tion in tion in tion in 1:45 PM source source source data data data Glucose NEG No No No Mar 5 [Mass/vol informati informati informati 2016 1:45 ume] [...] No No Apr 03 ial informa informa 2016 cells.s tion in tion in 1:45 PM quamous source source data data [Presen ce] in Urine sedimen t by Microsc opy high power field Urobili 0.2 NEG E.U./dL No No Apr 03 nogen informa informa 2016 [Presen tion in tion in 1:45 PM ce] in source source Urine data data by Test strip Leukocyte O wbc/hpf No No Apr 03 s informati informati 2017 1:45 [#/volume on in on in PM [...] No Apr 03 of informa informa informa 2016 Urine tion in tion in tion in [...] Range Adenovi NOT NOT No No No Mar 5 anny DETECTE DETECTE informa informa informa 2017 [...] data data [Presen ce] in Stool by Organis m specifi c culture Entamoe NOT NOT No No No Apr 03 ba DETECTE DETECTE informa informa informa 2016 histoly D tion in tion in tion [...] NOT No No No Apr 03 sp DNA DETECTE DETECTE informa informa informa 2016 [Identi D tion in tion in tion in 11:20 fier] source source source AM in data data data Unspeci fied specime n by Probe & target amplifi cation method Vibrio NOT NOT No No No Apr 03 sp DETECTE DETECTE informa informa informa 2016 identif D tion in tion in tion [...] U/L Normal No Apr 03 phosphata informati 2016 se on in 10:00 AM [Enzymati source c data activity/ volume] in Serum or Plasma Bilirubin 0.2 - 1.0 mg/dL Normal No Apr 03 .total informati 2016 [Mass/vol on in 10:00 AM ume] in source Serum or data Plasma Urea 7 - 18 mg/dL High No Oct 5 nitrogen informati 2017 [Mass/vol on in 10:00 AM ume] in source Serum or data Plasma Calcium 8.5 - mg/dL Normal No Oct 5 [Mass/vol 10.1 informati 2017 ume] in on [...] gm/dL High No Oct 5 [Mass/vol informati 2017 [...] Protein 6.4 - 8.2 gm/dL Normal No Apr 03 [Mass/vol informati 2016 ume] in on in 10:00 AM Serum or source Plasma data Lipase [Enzymatic activity/volume] in Serum or Plasma Observa Value Referen Units Interpr Notes Date tion ce etation Range Lipase 73 - 393 U/L Low No Apr 03 [Enzymati informati 2017 c on in 10:00 AM activity/ source [...] ng/mL Normal No Apr 03 I.cardiac 0.06 inform 2017 on in 10:00 AM [Mass/vol source ume] in data Serum or Plasma Acetone [Mass/volume] in Serum or Plasma Observa Value Referen Units Interpr Notes Date tion ce etation Range Acetone NOT No No No Apr 03 [Mass/vol DETECTD informati informati informati 2016 ume] in on in on in on [...] 2.0 % Normal No Apr 03 /100 inform2016 leukocyte on in 10:00 AM s in source Blood by data Automated count Eosinophi 0.0 - 0.4 K/mm3 Normal No Apr 03 ls ati 2016 [#/volume on in 10:00 AM ] [...] % Normal No Apr 03 stevie/100 80.0 inform2016 leukocyte on in 10:00 AM s [...] 4.5 K/mm3 Normal No Apr 03 es informati 2016 [#/volume on in 10:00 AM ] in source Unspecifi data ed specimen by Automated count Lymphocyt 10 - 50.0 % Normal No Apr 03 es inform2016 [#/volume on in 10:00 AM ] in source Unspecifi data ed specimen by Automated count Erythrocy 27 - 31.2 pg Normal No Apr 03 te mean 2016 corpuscul on in 10:00 AM ar source [...] 9.3 % Normal No Apr 03 /100 inform 2017 leukocyte on in 10:00 AM s in [...] Erythrocy 11.5 - % Normal No Mar 5 te 17.5 informati 2016 distribut on in 10:00 AM ion width source [Entitic data volume] by Automated count Leukocyte 4.8 - K/MM3 High No Oct 5 s 10.8 informati 2016 [#/volume on in [...] 2.0 % Normal No Oct 2 /100 informati 2016 leukocyte on in 10:22 AM s in source Blood by data Automated count Eosinophi 0.0 - 0.4 K/mm3 Normal No Mar 2 ls inform2016 [#/volume on in 10:22 AM ] in source Blood by data Automated count Eosinophi 0.1 - % Normal No Mar 2 ls/100 12.0 inform2016 leukocyte on in 10:22 AM s in source Blood by data Automated count Granulocy 1.8 - 7.8 K/mm3 High No Mar 2 stevie inform2016 [#/volume on in 10:22 AM ] in source Blood by data Automated count Granulocy 37.0 - % High No Mar 2 stevie/100 80.0 inform2016 leukocyte on in 10:22 AM s in source Blood by data Automated count Hematocri 37.0 - % Low No Mar 2 t [Volume 47.0 informati 2016 on in 10:22 AM Fraction] source of Blood data Hemoglobi 12.2 - g/dL Low No Mar 2 n 16.2 inform2016 [Mass/vol on in 10:22 AM ume] in source Blood data Lymphocyt 0.7 - 4.5 K/mm3 Normal No Mar 2 es informati 2016 [#/volume on in 10:22 AM ] in source Unspecifi data ed specimen by Automated count Lymphocyt 10 - 50.0 % Normal No Mar 2 es inform2016 [#/volume on in 10:22 AM ] in source Unspecifi data ed specimen by Automated count Erythrocy 27 - 31.2 pg Low No Oct 2 te mean inform 2017 corpuscul on in 10:22 AM ar source hemoglobi data n [Entitic mass] Erythrocy 31.8 - g/dl Low No Mar 2 te mean 35.4 informati 2016 corpuscul on in 10:22 AM ar source hemoglobi data n concentra tion [Mass/vol ume] by Automated count Erythrocy 82.2 - fl Normal No Mar 2 te mean 97.8 inform2016 corpuscul on in 10:22 AM ar volume source [Entitic data volume] by Automated count Monocytes 0.1 - 1.0 K/mm3 Normal No Mar 31 informati 2016 [#/volume on in 10:22 AM ] in source Blood by data Automated count Monocytes 1.7 - 9.3 % Normal No Mar 31 informati 2016 leukocyte on in 10:22 AM s in source Blood by data Automated count Platelet 7.4 - fl Normal No Mar 31 mean 10.4 informati 2016 volume on in 10:22 AM [Entitic source volume] data in Blood by Automated count Platelets 142 - 424 K/mm3 High No Mar 31 informati 2016 [#/volume on in 10:22 AM ] in source Blood data Erythrocy 4.2 - 5.4 M/mm3 Low No Mar 2 stevie informati 2016 [#/volume on in 10:22 AM ] in source Amniotic data fluid Erythrocy 11.5 - % Normal No Mar 31 te 17.5 informati 2016 distribut on in 10:22 AM ion width source [Entitic data volume] by Automated count Leukocyte 4.8 - K/MM3 High No Mar 2 s 10.8 informati 2016 [#/volume on in 10:22 AM ] in source Blood data Differential panel, method unspecified - Observa Value Referen Units Interpr Notes Date tion ce etation Range Eosinophi 0 - 3 % Normal No Mar 2 ls/100 informati 2016 leukocyte on in 10:22 AM s in source Blood by data Manual count LYMPH 21 10 - 50 % Normal No Mar 31 informa 2016 tion in 10:22 source AM data Monocytes 2 - 9 % Normal No Mar 31 informati 2016 leukocyte on in 10:22 AM [...] Neutrophi 42 - 76 % Normal No Oct 2 ls informati 2017 [#/volume on in 10:22 AM ] in source Blood by data Automated count Cells No #CELLS No No Oct 2 Counted informati informati informati 2017 Total [#] on in on in on [...] Low No Oct 2 lobulin informati informati 2016 [Mass on in on in 10:22 AM ratio] in source source Serum or data data Plasma Albumin 3.4 - 5.0 gm/dL Low No Oct 2 [Mass/vol informati 2016 ume] in on in 10:22 AM Serum or source Plasma data Alkaline 46 - 116 U/L Normal No Oct 2 phosphata informati 2017 se on in 10:22 AM [Enzymati source c data activity/ volume] in Serum or Plasma Bilirubin 0.2 - 1.0 mg/dL Normal No Oct 2 .total informati 2016 [Mass/vol on in 10:22 AM ume] in source Serum or data Plasma Urea 7 - 18 mg/dL High No Oct 2 nitrogen informati 2016 [Mass/vol on in 10:22 AM ume] in [...] High No Oct 2 e 1.02 informati 2016 [Mass/vol on in 10:22 AM ume] in source Serum or data Plasma Creatinin 50 - 200 ML/MIN Low No Oct 2 e renal inform2016 clearance on in 10:22 AM source predicted data by Cockcroft -Gault formula Estimated 59- ML/MIN Low REFERENCE Oct 2 RANGE: 2017 glomerula >60 10:22 AM r ML/MIN/1. filtratio 73 SQUARE n rate METERSIf (GF this patient is -A merican, then multiply theresult by 1.210. Globulin 1.3 - 3.2 gm/dL High No Oct 2 [Mass/vol informati 2016 ume] in on in 10:22 AM Serum source data Glucose 74 - 106 mg/dL High No Oct 2 [Mass/vol informati 2016 ume] in on in 10:22 AM Serum or source Plasma data Potassium 3.5 - 5.1 mmoL/L Normal No Oct 2 inform2016 [Moles/vo on in 10:22 AM lume] in source Serum or data Plasma Sodium 136 - 145 mmoL/L Normal No Oct 2 [Moles/vo informati 2016 lume] in on in 10:22 AM Serum or source Plasma data Aspartate 15 - 37 U/L Normal No Mar 2 2016 aminotran on in 10:22 AM sferase source [Enzymati data c activity/ volume] in Serum or Plasma Alanine 12 - 78 U/L Normal No Oct 2 aminotran inform2016 sferase on in 10:22 AM [Enzymati source c data activity/ volume] in Serum or Plasma Protein 6.4 - 8.2 gm/dL Normal No Oct 2 [Mass/vol informati 2016 ume] in on in 10:22 AM Serum or source Plasma data Lipase [Enzymatic activity/volume] in Serum or Plasma Observa Value Referen Units Interpr Notes Date tion ce etation Range Lipase 73 - 393 U/L Low No Oct 2 [Enzymati informati 2017 c on in 10:22 AM activity/ source volume] data in Serum or Plasma CBC W Auto Differential panel in Blood Observa Value Referen Units Interpr Notes Date tion ce etation Range Basophils 0 - 0.2 K/MM3 Normal No Mar 282016 2:09 [#/volume on in PM ] in source Blood by data Automated count Basophils 0.1 - 2.0 % Normal No Mar 282016 2:09 leukocyte on in PM s in source Blood by data Automated count Eosinophi 0.0 - 0.4 K/mm3 Normal No Sep 29 ls informati 2016 2:09 [#/volume on in PM ] in source Blood by data Automated count Eosinophi 0.1 - % Normal No Sep 29 ls/100 12.0 informati 2016 2:09 leukocyte on in PM s in source Blood by data Automated count Granulocy 1.8 - 7.8 K/mm3 High No Sep 29 stevie informati 2016 2:09 [#/volume on in PM ] in source Blood by data Automated count Granulocy 37.0 - % Normal No Sep 29 stevie/100 80.0 informati 2016 2:09 leukocyte on in PM [...] % Normal No Sep 29 es informati 2017 2:09 [#/volume on in PM ] in source Unspecifi data ed specimen by Automated count Erythrocy 27 - 31.2 pg Normal No Sep 29 te mean informati 2017 2:09 corpuscul on in PM ar source hemoglobi data n [Entitic mass] Erythrocy 31.8 - g/dl Low No Sep 29 te mean 35.4 informati 2016 2:09 corpuscul on in PM ar source [...] Normal No Sep 29 mean 10.4 informati 2017 2:09 volume on in PM [Entitic source volume] data in Blood by Automated count Platelets 142 - 424 K/mm3 High No Sep 29 informati 2017 2:09 [#/volume on in PM [...] U/L Normal No Sep 26 aminotran informati 2016 6:18 sferase on in AM [Enzymati source [...] Normal No Sep 25 dioxide, 32.0 informati 2016 3:40 total on in PM [Moles/vo source [...] ML/MIN Low alert REFERENCE Sep 25 RANGE: 2017 3:40 glomerula >60 PM r ML/MIN/1. filtratio [...] 37 U/L Normal No Sep 25 informati 2017 3:40 aminotran on in PM sferase source [Enzymati data c activity/ volume] in Serum or Plasma Alanine 12 - 78 U/L Normal No Sep 25 aminotran informati 2017 3:40 sferase on in PM [Enzymati source c data activity/ volume] in Serum or Plasma Protein 6.4 - 8.2 gm/dL Normal No Sep 25 [Mass/vol informati 2017 3:40 [...] Normal No Sep 25 mean 10.4 informati 2016 3:40 volume on in PM [Entitic source volume] data in Blood by Automated count Platelets 142 - 424 K/mm3 High No Sep 25 informati 2016 3:40 [#/volume on in PM ] in source Blood data Erythrocy 4.2 - 5.4 M/mm3 Low No Sep 25 stevie informati 2016 3:40 [#/volume on in PM ] in source Amniotic data fluid Erythrocy 11.5 - % Normal No Sep 25 te 17.5 informati 2016 3:40 distribut on in PM ion width source [Entitic data volume] by Automated count Leukocyte 4.8 - K/MM3 High No Sep 25 s 10.8 alert informati 2016 3:40 [#/volume on in PM ] in source Blood data Differential panel, method unspecified - Observa Value Referen Units Interpr Notes Date tion ce etation Range Neutrophi 0 - 8 % Normal No Sep 25 ls.band informati 2016 3:40 form/100 on in PM leukocyte source s in data Blood by Automated count LYMPH 9 10 - 50 % Low No Sep 25 inform 2017 tion in 3:40 PM source data [...]
--- OUTSIDE RECORDS SUMMARY | 2017-04-10 18:27 | External Medical Summary Rpt ---
[...] tion in tion in tion in 11:20 epng source source source AM [Presen data data [...]
--- OUTSIDE RECORDS SUMMARY | 2017-04-10 18:48 | External Medical Summary Rpt | CCD ---
Demographics Home Phone Preferred Language Citizen Of [place] Marital Status Unknown Quaker Affiliation Unknown Race Unknown Ethnic Group Unknown Author Author , MARIA L LISA Address Unknown Phone [email or web address] Care Team Providers Care Roadmaster Name Role Phone DORINDA GANN MD, Unavailable Unavailable DORINDA GANN MD Purpose Continuity of Care Document - 02-12-2013 through 2016 Problems Code Diagnosis DOS Provider Status 250.01 250.01 DIAB 04-01-2013 [facility], TYPE Hospital I [JUVENILE TYPE], NOT UNCNTRLD 305.1 305.1 04-01-2013 [place] TOBACCO USE [facility] 401.9 401.9 04-01-[address] [place] [address] [facility] NOS Hospital 428.0 428.0 04-01-2013 [place] CONGESTIVE [facility] FAILURE NOS 782.3 782.3 EDEMA 04-01-2013 [facility] Allergies, Adverse Reactions, Alerts Type Allergy to [...] RO 40 -0 SE 96 3- Lo ME 10 20 ng DE 20 13 er [...] Muniz MD (ER) 3 17:08 3 18:42 [facility] Emergency ALFREDITO GANN MD (ER) 3 19:13 3 20:38 [facility] Emergency ALFREDITO Gracia MD (ER) 3 19:05 3 20:35 [facility]
--- OUTSIDE RECORDS SUMMARY | 2017-04-10 18:48 | External Medical Summary Rpt | CCD ---
Author Author , MARIA L LISA Address Unknown Phone [email or web address] Immunization Name Date Rout CVX Reac Dose Comm Prov Is Faci e tion ent ider Refu lity Give sed n Infl 09-0 135 999 Hist D203 No D203 uenz 8-20 oric 45 45 a, 16 al High Info rmat Dose ion - Sour ce Unsp ecif ied
--- OUTSIDE RECORDS SUMMARY | 2017-04-10 18:48 | External Medical Summary Rpt | CCD ---
Author Author , MARIA L LISA Address Unknown Phone [email or web address] Immunization Name Date Rout CVX Reac Dose Comm Prov Is Faci e tion ent ider Refu lity Give sed n Infl 09-0 135 999 Hist D203 No D203 uenz 8-20 oric 45 45 a, 16 al High Info rmat Dose ion - Sour ce Unsp ecif ied
--- OUTSIDE RECORDS SUMMARY | 2017-04-10 18:48 | External Medical Summary Rpt | CCD ---
Demographics Home Phone Preferred Language Jamaican Marital Status Unknown Uatsdin Affiliation Unknown Race Unknown Ethnic Group Unknown Author Author , MARIA L LISA Address Unknown Phone [email or web address] Care Team Providers Care Acoustic Sensor Operator Name Role Phone DORINDA GANN MD, Unavailable Unavailable DORINDA GANN MD Purpose Continuity of Care Document - 02-12-2013 through 2016 Problems Code Diagnosis DOS Provider Status 250.01 250.01 DIAB 04-01-2013 [facility], TYPE Hospital I [JUVENILE TYPE], NOT UNCNTRLD 305.1 305.1 04-01-2013 [place] TOBACCO USE [facility] 401.9 401.9 04-01-2013 [place] HYPERTENSIO [facility] NOS Hospital 428.0 428.0 04-01-2013 [place] CONGESTIVE [facility] FAILURE NOS 782.3 782.3 EDEMA 04-01-2013 [facility] Allergies, Adverse Reactions, Alerts Type Allergy [...] RO 40 -0 SE 96 3- Lo [place] 10 20 ng DE 20 13 er [...] Muniz MD (ER) 3 17:08 3 18:42 [facility] Emergency ALFREDITO GANN MD (ER) 3 19:13 3 20:38 [facility] Emergency ALFREDITO Gracia MD (ER) 3 19:05 3 20:35 [facility]
--- OUTSIDE RECORDS SUMMARY | 2017-04-10 18:50 | External Medical Summary Rpt ---
[...] - 7.8 K/mm3 High No Apr 04 steive informati 2016 6:30 [#/volume on in AM [...] NOT NOT No No No Apr 03 anm DETECTE DETECTE informa informa informa 2017 coli [...]
== END 2017-04-05 08:20 | disposition home or self-care (01) | DRG 392 ==
LOC: ER 10:14 → 2ND 11:23
PROVIDERS: Emergency Medicine
DX: R19.7 Diarrhea, unspecified (principal); N17.9 Acute kidney failure, unspecified; E11.40 Type 2 diabetes mellitus with diabetic neuropathy, unspecified; E86.0 Dehydration; Z87.891 Personal history of nicotine dependence; N63.0 Unspecified lump in unspecified breast; R59.1 Generalized enlarged lymph nodes; Z83.3 Family history of diabetes mellitus; Z82.49 Family history of ischemic heart disease and other diseases of the circulatory system; Z83.49 Family history of other endocrine, nutritional and metabolic diseases; Z80.9 Family history of malignant neoplasm, unspecified; Z85.038 Personal history of other malignant neoplasm of large intestine; Z86.73 Personal history of transient ischemic attack (TIA), and cerebral infarction without residual deficits; I10 Essential (primary) hypertension; E78.5 Hyperlipidemia, unspecified; Z79.02 Long term (current) use of antithrombotics/antiplatelets; Z79.82 Long term (current) use of aspirin; Z79.4 Long term (current) use of insulin; Z79.891 Long term (current) use of opiate analgesic; Z79.899 Other long term (current) drug therapy; F41.9 Anxiety disorder, unspecified; Z91.030 Bee allergy status; Z91.02 Food additives allergy status; Z91.048 Other nonmedicinal substance allergy status
CPT/HCPCS: J2405

== ENCOUNTER → 2017-04-08 | Outpatient (CLI) | payer MEDICARE ==
[~2017-04-08] MED LIST changes: +CARVEDILOL3.125 M1 PO; +CARVEDILOL3.125 MG PO; +GABAPENTIN800 MG PO
--- NOTE | 2017-04-09 13:48 | RADIOLOGY REPORT PS360 ---
DIG MAMM-SCREEN [place] W/CAD CAD Screening COMPARISON: None, patient had previous mammograms 10-12 years ago in [place] and they're not available for review INDICATION: No personal or family history of breast cancer TECHNIQUE: Standard CC and MLO images were obtained. R2 CAD reviewed. FINDINGS: The breasts are composed primarily of fat with minimal scattered fibroglandular densities in each breast. There are few scattered benign-appearing calcifications in each breast. There is no suspicious lesion and no suspicious microcalcifications. IMPRESSION: Fibrofatty parenchyma with no suspicious lesion seen BI-RADS CATEGORY: 2_Benign RECOMMENDED FOLLOWUP: 12M 12 MONTH FOLLOW-UP (A letter has been sent to the patient regarding results of the study.)
--- NOTE | 2017-04-15 10:56 | RADIOLOGY REPORT PS360 ---
US BREAST-RT COMPLETE W/AXILLA COMPARISON: CT scan of 03/24/2017 INDICATION: Follow-up enlarged lymph nodes seen on recent CT scan ORDERING PHYSICIAN: Anand eLe MD PATIENT AGE: 76 years TECHNIQUE: General survey of the right breast including right axilla FINDINGS: Examination of the breasts itself has an unremarkable appearance. Multiple enlarged lymph nodes are present in the right axilla measuring up to 6 x 3 cm the nodes are hypoechoic with loss of the central fatty hilum. Nodes are hypervascular. IMPRESSION: Right axillary adenopathy BI-RADS CATEGORY: 4_Suspicious Abnormality. There are are enlarged nodes in the right axilla. These may be seen with reactive lymphadenopathy, lymphoma, or metastatic disease. RECOMMENDED FOLLOWUP: Dedicated CT of the neck and chest without and with contrast (A letter has been sent to the patient regarding results of the study.)
--- NOTE | 2017-04-15 10:56 | RADIOLOGY REPORT PS360 ---
US BREAST-RT COMPLETE W/AXILLA COMPARISON: CT scan of 03/24/2017 INDICATION: Follow-up enlarged lymph nodes seen on recent CT scan ORDERING PHYSICIAN: Anand Lee MD PATIENT AGE: 76 years TECHNIQUE: General survey of the right breast including right axilla FINDINGS: Examination of the breasts itself has an unremarkable appearance. Multiple enlarged lymph nodes are present in the right axilla measuring up to 6 x 3 cm the nodes are hypoechoic with loss of the central fatty hilum. Nodes are hypervascular. IMPRESSION: Right axillary adenopathy BI-RADS CATEGORY: 4_Suspicious Abnormality. There are are enlarged nodes in the right axilla. These may be seen with reactive lymphadenopathy, lymphoma, or metastatic disease. RECOMMENDED FOLLOWUP: Dedicated CT of the neck and chest without and with contrast (A letter has been sent to the patient regarding results of the study.)
== END ==
LOC: RAD 09:00
DX: Z12.31 Encounter for screening mammogram for malignant neoplasm of breast (principal); R59.0 Localized enlarged lymph nodes; N63.31 Unspecified lump in axillary tail of the right breast
CPT/HCPCS: G0202

== ENCOUNTER → 2017-04-30 | Outpatient (CLI) | payer MEDICARE ==
[~2017-04-30] MED LIST changes: +COLCHICINE0.6 M4 PO
--- NOTE | 2017-05-19 11:10 | RADIOLOGY REPORT PS360 ---
US BIOPSY OR PARACENTESIS, US ORGAN SITE (BREAST) CLINICAL INDICATION: ENLARGED LYMPH NODES ORDERING PHYSICIAN: Anand Lee MD PATIENT AGE: 76 years COMPARISON: Ultrasound 04/08/2017 FINDINGS: Prebiopsy ultrasound: Prebiopsy ultrasound once again confirms the presence of prominent hypoechoic lymph nodes in the right axilla. TECHNIQUE: Following obtaining informed consent using aseptic technique and local anesthesia with 1% buffered lidocaine a skin elan was performed with an 11 blade. Fine-needle aspiration was performed with 25-gauge needle. Then a 16-gauge biopsy needle was inserted into the largest node.. 2 cores were obtained for cytology and 1 for RPMI. No media complications. Pathology: Atypical lymphoid population with increased large cells suspicious for a lymphoproliferative disorder. Excisional biopsy was recommended. IMPRESSION: Suspicious for lymph lobe proliferated disorder. Excisional biopsy was recommended by the pathologist
== END ==
LOC: RAD 08:41
PROC: 07953ZX Drainage of Right Axillary Lymphatic, Percutaneous Approach, Diagnostic (ICD-10-PCS; principal; 2017-04-30)
DX: R59.9 Enlarged lymph nodes, unspecified (principal); R92.8 Other abnormal and inconclusive findings on diagnostic imaging of breast

== ENCOUNTER 2017-05-13 09:27 | Emergency (ER) | payer MEDICARE ==
[~2017-05-13] VITALS: Ht 162.6 cm; Wt 79.4 kg
[~2017-05-13 09:27] MED LIST changes: -COLCHICINE0.6 M4 PO
--- OUTSIDE RECORDS SUMMARY | 2017-05-13 09:42 | External Medical Summary Rpt | Continuity of Care Document ---
Author Author Organization Address Unknown Phone Unavailable Care Team Providers Care Cooler Tender Name Role Phone , Unavailable Unavailable EMS Current Medications Section EMS Allergies and Adverse Reactions EMS Past Medical History Medications Administered Section EMS Procedures Performed EMS Vital Signs EMS Patient Care Report Narrative H911 IMMEDIATE RESPONSE TO [facility] [address] FOR A FEMALE WITH NAUSEA, VOMITING AND DIARRHEA FOR 2 DAYS. UPON ARRIVAL TO PT SHE WAS SITTING IN THE KITCHEN IN A WHEELCHAIR WITH A COVER OVER HER. PT WAS 4-5-6, SKIN W/D, MAYNOR, L/S C=, ABD SNT. PT CO N/V/D AND WEAKNESS X 2 DAYS. PT DENIED ANY COMPLAINT OF PAIN OR SOB. LOADED PT ONTO COT VIA STAND PIVOT WITH CREW ASSIT X 2 AND LOADED PT INTO THE AMBULANCE. OBTAINED V/S, AMMUNITION SUPERVISOR - NSR, TEMP -97.9, BGS - 125, 20G LOCK LT AC, BLOOD DRAW AND MONITORED PT EN ROUTE TO [facility] ER. PT REQUIRES TRANSPORT DUE TO SENIOR INTERNATIONAL TAX MANAGER WEAKNESS AND POSSIBLE DEHYDRATION FROM HER N/V/D x2 DAYS. TRANSPORT WITH OUT INCIDENT. NO CHANGE IN STATUS. REPORT AND CARE GIVEN TO FRONT DESK. Kristen TITUS CCP.
--- OUTSIDE RECORDS SUMMARY | 2017-05-13 09:42 | External Medical Summary Rpt | Continuity of Care Document ---
Author Author Organization Address Unknown Phone Unavailable Care Team Providers Care Racing Board Marker Name Role Phone , Unavailable Unavailable EMS [...] LOADED PT INTO THE AMBULANCE. OBTAINED V/S, SAWYER CORK SLABS - NSR, TEMP -97.9, BGS - 125, 20G LOCK LT AC, BLOOD DRAW AND MONITORED PT EN ROUTE TO [facility] ER. PT REQUIRES TRANSPORT DUE TO OIL WELL SERVICE UNIT OPERATOR WEAKNESS AND POSSIBLE DEHYDRATION FROM HER N/V/D x2 DAYS. TRANSPORT WITH OUT INCIDENT. NO CHANGE IN STATUS. REPORT AND CARE GIVEN TO GLASS HANDLER. Kristen TITUS CCP.
--- OUTSIDE RECORDS SUMMARY | 2017-05-13 09:42 | External Medical Summary Rpt | Continuity of Care Document ---
Author Author Organization Address Unknown Phone Unavailable Care Team Providers Care Sales And Events Coordinator Name Role Phone , Unavailable Unavailable EMS [...] LOADED PT INTO THE AMBULANCE. OBTAINED V/S, AD SETTER - NSR, TEMP -97.9, BGS - 125, 20G LOCK LT AC, BLOOD DRAW AND MONITORED PT EN ROUTE TO [facility] ER. PT REQUIRES TRANSPORT DUE TO ENGINEERING CLERK WEAKNESS AND POSSIBLE DEHYDRATION FROM HER N/V/D x2 DAYS. TRANSPORT WITH OUT INCIDENT. NO CHANGE IN STATUS. REPORT AND CARE GIVEN TO ASSET MANAGER. Kristen TITUS CCP.
--- OUTSIDE RECORDS SUMMARY | 2017-05-13 09:42 | External Medical Summary Rpt | Continuity of Care Document ---
Author Author Organization Address Unknown Phone Unavailable Care Team Providers Care Real Estate Broker Associate Name Role Phone , Unavailable Unavailable EMS [...] LOADED PT INTO THE AMBULANCE. OBTAINED V/S, LINUX ADMINISTRATOR - NSR, TEMP -97.9, BGS - 125, 20G LOCK LT AC, BLOOD DRAW AND MONITORED PT EN ROUTE TO [facility] ER. PT REQUIRES TRANSPORT DUE TO [place] SE[place]ER WEAKNESS AND POSSIBLE DEHYDRATION FROM HER N/V/D x2 DAYS. TRANSPORT WITH OUT INCIDENT. NO CHANGE IN STATUS. REPORT AND CARE GIVEN TO TANK PUMPER. Kristen TITUS CCP.
--- OUTSIDE RECORDS SUMMARY | 2017-05-13 09:44 | External Medical Summary Rpt | CCD ---
Author Author , MARIA L Organization MARIA L Address Unknown Phone [email or web address] Immunization Name Date Rout CVX Reac Dose Comm Prov Is Faci e tion ent ider Refu lity Give sed n Infl 09-0 135 999 Hist D203 No D203 uenz 8-20 oric 45 45 a, 16 al High Info rmat Dose ion - Sour ce Unsp ecif ied
--- OUTSIDE RECORDS SUMMARY | 2017-05-13 09:44 | External Medical Summary Rpt | CCD ---
Author Author , MARIA L LISA Address Unknown Phone [email or web address] Care Team Providers Care Histologic Aide Name Role Phone DORINDA GANN MD, Unavailable Unavailable DORINDA GANN MD Purpose Continuity of Care Document - 02-12-2013 through 2016 Problems Code Diagnosis DOS Provider Status 250.01 250.01 DIAB 04-01-2013 [facility], TYPE Hospital I [JUVENILE TYPE], NOT UNCNTRLD 305.1 305.1 04-01-2013 [place] TOBACCO USE [facility] Hospital 401.9 401.9 04-01-2013 [place] HYPERTENSIO [facility] NOS Hospital 428.0 428.0 04-01-2013 [place] CONGESTIVE [facility] HEART [facility] FAILURE NOS 782.3 782.3 EDEMA 04-01-2013 [facility] E46 UNSPECIFIED PROTEIN-KATHRINE ORIE MALNUTRITIO N E86.0 DEHYDRATION G56.02 Carpal tunnel syndrome, left upper limb K52.9 NONINFECTIV E GASTROENTER ITIS AND COLITIS, UNSPECIFIED K80.50 CALCULUS OF BILE DUCT W/O CHOLANGITIS OR CHOLECYST W/O OBST K82.9 DISEASE OF GALLBLADDER , UNSPECIFIED M54.5 LOW BACK PAIN N17.9 ACUTE KIDNEY FAILURE, UNSPECIFIED N61.0 MASTITIS WITHOUT ABSCESS N63.0 UNSPECIFIED LUMP IN UNSPECIFIED BREAST R07.89 OTHER CHEST PAIN R19.7 DIARRHEA, UNSPECIFIED R59.0 LOCALIZED ENLARGED LYMPH NODES R59.9 ENLARGED LYMPH NODES, UNSPECIFIED S46.001A UNSP INJ MUSC/TEND THE ROTATOR CUFF OF R SHOULDER, INIT Allergies, Adverse Reactions, Alerts Type Allergy to [...] RO 40 -0 SE 96 3- Lo WA 10 20 ng DE 20 13 er [...] ce] in Urine by Test strip Urobili 04-03- 0.2 NEG complet nogen 017 ed [Presen [...] 013 gm/dL ed SerPl-m 19:35 Cnc Globuli 04-01-2 3.5 1.3-3.2 complet n 013 gm/dL ed Ser-mCn 19:35 c Albumin 04-01-2 1.1 UNK 1.1-1.8 complet /Glob 013 ed SerPl-m 19:35 Rto Bilirub 0.5 0.2-1.0 complet 013 mg/dL ed SerPl-m 19:35 Cnc AST 04-01- 13 U/L 15-37 complet SerPl-c 013 ed Cnc 19:35 ALT 04-01- 30 U/L 30-65 complet SerPl-c 013 ed Cnc 19:35 ALP 111 U/L 50-136 complet SerPl-c 013 ed Cnc 19:35 BNP Bld-mCnc (04-01-2013 19:35) BNP 04-01-2 33 0-100 complet Bld-mCn 013 pg/mL ed c 19:35 CBC with AUTO DIFF (04-01-2013 19:35) WBC # -03-2 13.2 4.8-10. complet Bld 013 K/MM3 8 ed Auto 19:35 RBC # 03-2 4.17 4.2-5.4 complet Bld 013 M/mm3 ed Auto 19:35 Hgb 03-2 12.9 12.2-16 complet Bld-mCn 013 g/dL .2 ed c 19:35 Hct Fr 04-01-2 38.9 % 37.0-47 complet Bld 013 .0 ed 19:35 MCV RBC 04-01-2 93.4 fl 82.2-97 complet 013 .8 ed 19:35 MCH RBC 03-2 31.0 pg 27-31.2 complet Qn 013 ed Auto 19:35 MEAN 04-01-2 33.2 31.8-35 complet CORPUSC 013 g/dl .4 ed ULAR 19:35 HGB CONC RDW RBC 03-2 14.7 % 11.5-17 complet Auto 013 .5 ed 19:35 Platele 04-01-2 362 142-424 complet t Bld 013 K/mm3 ed Ql 19:35 Manual MEAN 04-01-2 7.9 fl 7.4-10. complet PLATELE 013 4 ed T 19:35 VOLUME Granulo 10-03-2 56.2 % 37.0-80 complet cytes 013 .0 ed Fr Bld 19:35 Auto LYMPH % 10-03-2 38.2 % 10-50.0 complet 013 ed 19:35 Monocyt 10-03-2 3.1 % 1.7-9.3 complet es Fr 013 ed Bld 19:35 Auto Eosinop 10-03-2 1.9 % 0.1-12. complet hil Fr 013 0 ed Bld 19:35 Auto Basophi 10-03-2 0.6 % 0.1-2.0 complet ls Fr 013 [...] mg/dL ed - 20:10 DIPSTIC K URINE 02-12-2 0.2 NEG complet UROBILI 013 E.U./dL ed NOGEN - 20:10 DIPSTIC K URINE 02-12-2 NEGATIV NEG complet NITRATE 013 E ed - 20:10 DIPSTIC K URINE 02-12-2 NEGATIV NEG complet LEUK 013 E ed ESTERAS 20:10 E URINE OCC O complet WBC 013 wbc/hpf ed 20:10 URINE 02-12- OCC 0-5 complet SQUAMOU 013 #/hpf ed S CELLS 20:10 URINE 02-12- TRACE NONE complet AMORPH 013 ed SEDIMEN 20:10 T COMPREHENSIVE METABOLIC PANEL (02-12-2013 18:50) Glucose 16- 90 74-106 complet 013 mg/dL ed Bld-mCn 18:50 c BUN 13 7-18 complet Bld-mCn 013 mg/dL ed c 18:50 Creat 1.2 0.6-1.0 complet SerPl-m 013 mg/dL ed Cnc 18:50 ESTIMAT 02-12- 55 50-200 complet ED 013 ML/MIN ed CREATIN 18:50 INE CLEARAN CE GFR 44 59- complet (ESTIMA 013 ML/MIN ed GATITO) 18:50 Sodium 02-12- 141 136-145 complet SerPl-s 013 mmoL/L ed Cnc 18:50 Potassi 4.0 3.5-5.1 complet um 013 mmoL/L ed SerPl-s 18:50 Cnc Chlorid 101 98-107 complet e 013 mmoL/L ed SerPl-s 18:50 Cnc CO2 02-12- 34 21.0-32 complet SerPl-s 013 mmoL/L .0 ed Cnc 18:50 Calcium 02-12- 9.2 8.5-10. complet 013 mg/dL 1 ed SerPl-m 18:50 Cnc Prot 02-12- 7.9 6.4-8.2 complet SerPl-m 013 gm/dL ed Cnc 18:50 Albumin 4.1 3.4-5.0 complet 013 gm/dL ed SerPl-m 18:50 Cnc Globuli 08-16-2 3.8 1.3-3.2 complet n 013 gm/dL ed Ser-mCn 18:50 c Albumin 16-2 1.1 UNK 1.1-1.8 complet /Glob 013 ed SerPl-m 18:50 Rto Bilirub 16-2 0.6 0.2-1.0 complet 013 mg/dL ed SerPl-m 18:50 Cnc AST 16-2 8 U/L 15-37 complet SerPl-c 013 ed Cnc 18:50 ALT -16-2 28 U/L 30-65 complet SerPl-c 013 ed Cnc 18:50 ALP -16-2 121 U/L 50-136 complet SerPl-c 013 ed Cnc 18:50 CBC with AUTO DIFF (02-12-2013 18:50) WBC # 08-16-2 16.4 4.8-10. complet Bld 013 K/MM3 8 ed Auto 18:50 RBC # 08-16-2 4.34 4.2-5.4 complet Bld 013 M/mm3 ed Auto 18:50 Hgb 08-16-2 13.1 12.2-16 complet Bld-mCn 013 g/dL .2 ed c 18:50 Hct Fr 16-2 39.8 % 37.0-47 complet Bld 013 .0 ed 18:50 MCV RBC 08-16-2 91.8 fl 82.2-97 complet 013 .8 ed 18:50 MCH RBC -16-2 30.1 pg 27-31.2 complet Qn 013 ed Auto 18:50 MEAN -16-2 32.8 31.8-35 complet CORPUSC 013 g/dl .4 ed ULAR 18:50 HGB CONC RDW RBC -16-2 12.9 % 11.5-17 complet Auto 013 .5 [...] MD (ER) 3 17:08 3 18:42 [facility] Emergency ALFREDITO GANN MD (ER) 3 19:13 3 20:38 [facility] Emergency ALFREDITO Gracia MD (ER) 3 19:05 3 20:35 [facility]
--- OUTSIDE RECORDS SUMMARY | 2017-05-13 09:44 | External Medical Summary Rpt | CCD ---
Author Author , MARIA L Organization MARIA L Address Unknown Phone [email or web address] Immunization Name Date Rout CVX Reac Dose Comm Prov Is Faci e tion ent ider Refu lity Give sed n Infl 09-0 135 999 Hist D203 No D203 uenz 8-20 oric 45 45 a, 16 al High Info rmat Dose ion - Sour ce Unsp ecif ied
--- OUTSIDE RECORDS SUMMARY | 2017-05-13 09:44 | External Medical Summary Rpt | CCD ---
Author Author , MARIA L LISA Address Unknown Phone [email or web address] Care Team Providers Care Medical Transcription Radiology Name Role Phone DORINDA GANN MD, Unavailable Unavailable DORINDA GANN MD Purpose Continuity of Care Document - 02-12-2013 through 2016 Problems Code Diagnosis DOS Provider Status 250.01 250.01 DIAB 04-01-2013 [facility], TYPE Hospital I [JUVENILE TYPE], NOT UNCNTRLD 305.1 305.1 04-01-2013 [place] TOBACCO USE [facility] Hospital 401.9 401.9 04-01-2013 [place] HYPERTENSIO [facility] NOS Hospital 428.0 428.0 04-01-2013 [place] CONGESTIVE [facility] HEART [facility] FAILURE NOS 782.3 782.3 EDEMA 04-01-2013 [facility] E46 UNSPECIFIED PROTEIN-KATHRINE ORIE MALNUTRITIO N E86.0 [...] RO 40 -0 SE 96 3- Lo [place] 10 20 ng DE 20 13 er [...] Muniz MD (ER) 3 17:08 3 18:42 [facility] Emergency ALFREDITO GANN MD (ER) 3 19:13 3 20:38 [facility] Emergency ALFREDITO Gracia MD (ER) 3 19:05 3 20:35 [facility]
--- NOTE | 2017-05-13 10:11 | Emergency Room Report ---
History of Present Illness Time Seen by MD Snowden Presenting Problem in Triage Pt arrived:Ambulance Stretcher Presenting Problem:RIGHT HIP PAIN AFTER FALLING Onset of symptoms date/time:05/13/17 or onset unknown for: Treatment Prior to Arrival: AREA LOSS PREVENTION MANAGER Provided by: Sepsis Risk Assessment: Temp: 98.1 B/P: 143/60 MAP: 87 Pulse: 88 Resp: 18 Recent fever? N Clinical Suspician of Infection? N Mental Status: 1 - Regular (Normal Baseline) Sepsis Risk:Low Sepsis Risk Have you (or family members/close friends) recently traveled outside the [place]? N If Yes, where/when: Have you had exposure to infectious disease within the past month? N TB? Other? Specify: 76 years old white female with the history of osteoarthritis and chronic RIGHT knee pain. She fell going up the steps and her brother's revealed to 3 days ago. Today she was in a commode and she fell and landed on her right foot. She denies having hip pain back pain head injuries or neck injuries. Source patient, RN notes reviewed, family (her ) Exam Limitations no limitations ALLERGIES Coded Allergies: venom-honey bee (bee venom (honey bee)) (Severe, S-DIFF. BREATHING 03/28/17) ASPARTAME (FOOD) (From ASPARTAME (FOOD/DRUG)) (Intermediate, I-HIVES 03/28/17) aspartame (From ASPARTAME (FOOD/DRUG)) (Intermediate, I-HIVES 03/28/17) adhesive tape (03/28/17) Home Medications Reported Medications Diazepam (Valium 10MG) 10 MG PO TIDP HYDROCODONE/ACETAMINOPHEN (Haynes 5-325 Tablet) 1 TAB PO Q4-6HP PRN PAIN Simvastatin 20 MG PO DAILY Pantoprazole Sodium (Protonix 40MG TAB) 40 MG PO DAILY ASPIRIN (Aspirin 325MG) 215 MG PO DAILY INSULIN GLARGINE (Lantus 3ML Solostar Pen) 40 UNITS SC DAILY Carvedilol 3.125 MG PO BID Gabapentin (Gabapentin 800MG) 800 MG PO TID #90 CLOPIDOGREL BISULFATE (Clopidogrel 75MG) 75 MG PO DAILY History Medical History General CAD? No Angina: Yes TN: No Hypertension? Yes Hyperlipidemia? Yes CHF? No DVT? No PE? No COPD? No Asthma? No Anemia? No GERD? No Gastric ulcers? No GI Bleed? No Hernia? No Thyroid Problems? No Hypothyroidism? No CVA? Yes Seizures? 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 Yes Renal Insuffiency? No End Stage Renal Disease? No UTI? No Stones? No BPH? No GB Disease: No Nephritic Syndrome? No Asplenia? No Hepatitis? No Sickle Cell Disease? No Arthritis? Yes Migraines? Yes Cataracts? No Glaucoma? No MRSA? No HIV? No TB? No Anxiety? Yes Depression? Yes Cancer? Yes Site: COLON CANCER More? Yes Additional hx: Diabetic neuropathy BELLS PALSY Immunization Hx DT/Tetanus 03/26/17 Flu 03/25/17 Pneumonia Unknown Surgical Hx Previous Surgery?Y L KNEE BACK SURGERY Colon Procedures HYSTERECTOMY Family History Family Hx Diabetes Yes CAD No Hypertension No Hyperlipidemia No Cancer Yes TB No Social History Smoking Hx Smoker: Current Every Day Smoker Tobacco: Yes Type Cigarettes Packs/day 1 1/2 - 2 Packs Alcohol Alcohol: No Review of Systems All Other Systems Reviewed and Negative Constitutional no symptoms reported Eyes no symptoms reported ENT no symptoms reported. Respiratory no symptoms reported Cardiovascular no symptoms reported Gastrointestinal no symptoms reported Genitourinary no symptoms reported. Musculoskeletal see HPI, back pain Skin no symptoms reported Psychiatric/Neurological no symptoms reported Physical Exam Vital Signs Vital Signs Date Time Temp Pulse Resp B/P Pulse O2 O2 Flow FiO2 Ox Delivery Rate 05/13 1100 76 16 143/69 92 05/13 0929 98.1 88 18 143/60 94 - WBC >12,000 or <4,000 or 10% bands? 2 or more SIRS Criteria Met? B/P:143/60 MAP:87 Creatinine >2.0? UA output<0.5ml/kg/hr for 2 hrs? Platelet count >100,000? Lactate >2.0mmol/1? INR >1.2 or PTT > than 60 sec? Evidence of Organ Dysfunction? Provider documented clinical suspician of infection? N Sepsis Criteria Count: 0 Sepsis Risk: Low Sepsis Risk General Appearance normal appearance, WD/WN Eye Exam - bilateral eye normal exam, bilateral eye PERRL, bilateral eye EOMI Ear, Nose, Throat hearing grossly normal, normal ENT inspection Neck normal inspection, non-tender, supple, full range of motion Respiratory Status Yes: trachea midline, chest symmetrical, non tender chest. No: respiratory distress. Lung Sounds bilateral: normal breath sounds, lungs clear. Cardiovascular normal exam, regular rate/rhythm, no peripheral edema, no gallop, no JVD, no murmur, no rub, normal peripheral pulses Peripheral Pulses Pulses normal Yes Gastrointestinal normal bowel sounds, normal exam, non tender, soft, no organomegaly Back normal inspection, no CVA tenderness, no vertebral tenderness Extremities limited range of motion, swelling, examination of the lower extremities revealed stable pelvis, normal range of motion of the RIGHT hip, limited flexion of the RIGHT knee, hotness, the redness and swelling RIGHT ankle , mild tenderness in the dorsum of theRIGHT foot. Strength 5 Lower Ext (L), 5 Lower Ext (R) Neurologic alert, senior radiation therapist II-XII nml as tested, normal exam, no motor/sensory deficits, oriented x 3 Reflexes Reflexes normal Yes Skin intact, normal color, warm/dry, Refill is 2 seconds bilaterally Lymphatic no adenopathy Medical Decision Making LABS/Meds/Orders Pt receiving controlled substance in ED? No Results/Orders Laboratory Tests 05/13/17 1145: Lactic Acid Pending 05/13/17 1041: Sodium 137, Potassium 3.7, Chloride 99, Carbon Dioxide 33 H, BUN 13, Creatinine 1.2 H, Estimated Creat Clear 50, Estimated GFR (MDRD) 44 L, Glucose 127 H, Uric Acid 9.3 H, Calcium 9.6, D-Dimer 3100 *H, WBC 16.3 H, RBC 3.55 L, Hgb 9.7 L, Hct 30.5 L, MCV 85.9, RDW 15.4, Plt Count 460 H, MPV 7.7, Gran % 80.7 H, Gran # 13.1 H, Total Counted 100, Lymphocytes % 13.5, Monocytes % 4.6, Eosinophils % 0.9, Basophils % 0.4, Neutrophils 85 H, Lymphocytes (Manual) 10, Lymphocytes # 2.2, Monocytes (Manual) 5, Monocytes # 0.7, Eosinophils # 0.2, Basophils # 0.1, Platelet Estimate MARKED INCREASE, Hypochromasia 1+, Poikilocytosis 1+, Stomatocytes 1+, PUBS MCHC 31.8, MCH 27.3 Orders Procedure Date/time Status CHEST-PORTABLE 05/13 1116 Active CULTURE, BLOOD 05/13 1116 Active URINALYSIS/COMPLETE 05/13 1116 Active LACTIC ACID 05/13 1116 Active DIFFERENTIAL-WBC 05/13 1041 Complete URIC ACID 05/13 1005 Complete D-DIMER 05/13 1005 Complete CBC WITH AUTO DIFF 05/13 1005 Complete BASIC METABOLIC PROFILE 05/13 1005 Complete VENOUS LOWER EXT RT 05/13 UNK Active XRAY/CT/US XRAY/CT/US XRAY chest XR interpretation by reviewed by me Departure Departure Time of Disposition 1009 Disposition DC Home or Self Care(routine) Clinical Impression Primary Impression: Acute gout Secondary Impressions: Fall, Osteoarthritis Condition STABLE Referrals Anand Hobbs MD (Family) Additional Instructions US was negative for DVT I contacted dr hobbs regarding her acute gout , he agreed that NSAID is not a good choice and she can be treated with steroids and cholichicine. follow up with Dr Hobbs in 1-2 days Discharge Counseling Counseled pt/family regarding diagnosis, medications/RX, home care, follow up needs Prescriptions Current Visit Scripts Colchicine 0.6 MG PO DAILY #7 TAB Ref 1 ED Critical Care Critical Care No If Critical Care minutes are documented, the time involved in the performance of seperately reportable procedures was not counted toward critical care time documented. I directly delivered medical care to this critically ill and/or injured patient. Timely evaluation and treatment was necessary to address the significant organ system(s) dysfunction present in this patient. at 1225
[2017-05-13 11:04] LABS: HEMOGLOBIN 9.7 g/dL (12.2-16.2); LYMPH # 2.2 K/mm3 (0.7-4.5); LYMPH % 13.5 % (10-50.0)
--- NOTE | 2017-05-13 11:12 | RADIOLOGY REPORT PS360 ---
HIP RT 2-3V W/PELVIS IF PERFOR HISTORY: Posttraumatic pain R/O FX AFTER FALL ORDERING PHYSICIAN: Paloma Rubi MD PATIENT AGE: 76 years COMPARISON: 05/30/2013 FINDINGS: No acute fracture or dislocation. Mild osteoarthritic changes are present involving both hips with some minimal periarticular calcification. IMPRESSION: No acute fracture. Osteoarthritis
--- NOTE | 2017-05-13 11:14 | RADIOLOGY REPORT PS360 ---
ANKLE-RT-3 VIEWS HISTORY: Posttraumatic pain fell of the commod ORDERING PHYSICIAN: Paloma Rubi MD PATIENT AGE: 76 years COMPARISON: None FINDINGS: No fracture or dislocation. No lytic or blastic change. There is normal mineralization.. Hypertrophic changes with some cortical cystic changes present at the distal fibula and medial malleolus region. No acute fracture or dislocation is evident. Soft tissue calcification involves the posterior calf distally. IMPRESSION: Chronic changes, no acute fracture
--- NOTE | 2017-05-13 11:16 | RADIOLOGY REPORT PS360 ---
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 Hypertrophic changes are present along the talus, navicular, and cuneiforms dorsally. Minimal osteoarthritic change first MTP. IMPRESSION: No acute finding
--- NOTE | 2017-05-13 11:19 | RADIOLOGY REPORT PS360 ---
LOWER LEG-RT HISTORY: Posttraumatic pain fell of the commod ORDERING PHYSICIAN: Paloma Rubi MD PATIENT AGE: 76 years COMPARISON: None FINDINGS: No acute fracture or dislocation. Osteoarthritic changes are present at the knee with periarticular calcification. Bony spurring is present involving the distal tibia anteriorly. Soft tissue calcification involves the dorsal distal aspect of the calf and may be within the gastrocnemius muscle. IMPRESSION: No acute finding
--- NOTE | 2017-05-13 11:21 | RADIOLOGY REPORT PS360 ---
KNEE-4 OR 5 VIEWS-RT HISTORY: Pain following injury fell of the commod ORDERING PHYSICIAN: Paloma Rubi MD PATIENT AGE: 76 years COMPARISON: None FINDINGS: No obvious fracture or dislocation. Severe osteoarthritic changes are present involving all 3 compartments. Bony hypertrophic changes are present at the patella with ossification superior to the patella. IMPRESSION: No acute fracture, osteoarthritis
[2017-05-13 12:11] LABS: NEUTROPHILS 85 % (42-76)
[2017-05-13 12:13] LABS: STOMATOCYTE 1+
[2017-05-13] MEDS ORDERED: COLCHICINE0.6 M4 PO (12:26)
--- NOTE | 2017-05-13 12:27 | CARDIOVASCULAR REPORT ---
"Venous Exam Indications: 782.3 Edema. IMPRESSIONS 1. There is no evidence of significant Reflux. 2. No evidence of deep or superficial vein thrombosis involving the right lower extremity Unable to visualize peroneal veins secondary to anatomy History: PMH: Deep vein thrombosis. Right lower extremity venous duplex evaluation. Doppler flow study including spectral analysis, color and medeiros scale imaging. Location: Bedside. Patient status: Emergency department. Tables: Venous flow and imaging: + + + + |Location |Overall |Flow properties | + + + + |Right common femoral |Patent |Normal phasicity; | | | |spontaneous; normal | | | |augmentation; compressible | + + + + |Right saphenofemoral |Patent |Compressible | |junction | | | + + + + |Right profunda femoral |Patent |Compressible | + + + + |Right femoral |Patent |Normal phasicity; | | | |spontaneous; normal | | | |augmentation; compressible | + + + + |Right greater saphenous |Patent |Normal phasicity; | | | |spontaneous; normal | | | |augmentation; compressible | + + + + |Right popliteal |Patent |Normal phasicity; | | | |spontaneous; normal | | | |augmentation; compressible | + + + + |Right posterior tibial |Patent |Compressible | + + + + |Right peroneal |Difficult | | | |study | | + + + + |Right gastrocnemius |Patent |Compressible | + + + + |Right soleal |Patent |Compressible | + + + + (Report amended ) Electronically signed by: Tung Lane [id number]"
--- NOTE | 2017-05-13 12:35 | RADIOLOGY REPORT PS360 ---
CHEST-PORTABLE HISTORY: Pain following injury weakness , fall, elevated wbc ORDERING PHYSICIAN: Paloma Rubi MD PATIENT AGE: 76 years COMPARISON: 03/28/2017 FINDINGS: The cardiomediastinal silhouette and pulmonary vascularity are within normal limits. The lungs are clear without infiltrates, suspicious nodules, or pleural effusions. No acute bony abnormalities. Previously noted left perihilar opacity is no longer apparent and may have been due to summation artifact IMPRESSION: No acute finding
[2017-05-13 14:07] LABS: URINE BILIRUBIN - DIPSTICK NEGATIVE (NEG); URINE BLOOD NEGATIVE (NEG)
[2017-05-13 14:27] LABS: URINE SQUAMOUS CELLS 20-50 #/hpf (0-5)
[2017-05-13 14:35] VITALS: BP 137/59
== END 2017-05-13 14:30 | disposition home or self-care (01) ==
LOC: ER 09:27
PROVIDERS: Emergency Medicine
DX: M10.9 Gout, unspecified (principal); M17.11 Unilateral primary osteoarthritis, right knee; M25.551 Pain in right hip; E11.9 Type 2 diabetes mellitus without complications; Z79.4 Long term (current) use of insulin; I10 Essential (primary) hypertension; Z79.82 Long term (current) use of aspirin; M79.651 Pain in right thigh

== ENCOUNTER → 2017-05-21 | Outpatient (CLI) | payer MEDICARE ==
[~2017-05-21] MED LIST changes: +COLCHICINE0.6 M4 PO
[2017-05-21 16:51] LABS: BUN 15 mg/dL (7-18)
[2017-05-21 16:57] LABS: GFR (ESTIMATED) 37 ML/MIN (59-)
== END ==
LOC: LAB 14:51
PROVIDERS: Surgery
DX: R59.0 Localized enlarged lymph nodes (principal); Z01.812 Encounter for preprocedural laboratory examination

== ENCOUNTER → 2017-05-29 | Day surgery (SDC) | payer MEDICARE ==
[2017-05-29 11:52] LABS: HEMOGLOBIN 9.5 g/dL (12.2-16.2); LYMPH # 2.1 K/mm3 (0.7-4.5); LYMPH % 20.1 % (10-50.0)
--- NOTE | 2017-05-29 13:05 | Operative Note ---
Surgeon/Diagnoses Surgeon/Cardroom Supervisor(s) Date of procedure: 05/29/17 Surgeon: MD Clayton Chavez Diagnoses Pre-op diagnosis: Lymphadenopathy (RIGHT axillary) Post-op diagnosis Same Procedure Procedure Procedure: Excisional biopsy of enlarged RIGHT axillary lymph node Indications: DAVID POWELL is a 76 year-old Female with a history of large complex palpable lymphadenopathy within the RIGHT axilla. Ultrasound-guided biopsy did not reveal a definitive pathologic diagnosis and the surgical service was consulted for excisional versus incisional biopsy. Findings: Multiple large complex lymph nodes within the RIGHT axilla 6 cm firm lymph node excised and passed off for pathologic evaluation (small portion placed in RPMI solution) Procedure Description: After informed consent was obtained, the patient was taken to the operating room and placed in the supine position. General anesthesia was induced in her RIGHT axilla was prepped and draped in a sterile fashion. After infiltration with local anesthetic a slightly curvilinear incision was made overlying the palpable adenopathy. A combination of sharp dissection was scalpel, electrocautery, and blunt dissection was utilized to dissect through the deeper subcutaneous tissue. A very large lymph node was carefully elevated and bluntly excised from surrounding tissue. The lymph node was carefully removed and passed off for pathologic evaluation. A small portion of the lymph node margin was placed in RPMI solution and the remaining was placed in formalin. Electrocautery was utilized to achieve hemostasis. The deep subcutaneous tissue was reapproximated with interrupted Vicryl and skin was closed with 4-0 Monocryl in a running subcuticular manner. Steri-Strips were applied and the patient was transferred to recovery after extubation. EBL (ml): 15 Anesthesia: General Complications: No immediate Specimens: RIGHT axillary lymph node Disposition Disposition: Stable to recovery from where she will be discharged home. She will follow-up in one week. at 0738
--- NOTE | 2017-05-29 13:16 | Anesthesia Record ---
Anesthesia Record Part I Total IV fluids: 800 EBL (ml): 15 Urine Output: 0 B/P: 176/89 % SaO2: 91 Pulse: 83 Resps: 16 Temp: 97.5 Patient is: Stable Stable to PACU at: 1311 at 1315
--- NOTE | 2017-05-29 13:16 | Anesthesia Record ---
Anesthesia Record Part II Discharge time: 1341 Destination: Same day surgery PACU nurse assessment review? Yes Patient is: Stable Anesthesia complications? No at 1310
[2017-05-29 16:44] VITALS: BP 103/56
== END ==
LOC: SDC 10:16
PROVIDERS: Surgery
PROC: 07B50ZX Excision of Right Axillary Lymphatic, Open Approach, Diagnostic (ICD-10-PCS; principal; 2017-05-29 11:00)
DX: R59.0 Localized enlarged lymph nodes (principal); E11.8 Type 2 diabetes mellitus with unspecified complications
CPT/HCPCS: J0131; J2405